=== PATIENT | male | born 1945 | race Caucasian/White ===

== ENCOUNTER → 2016-09-30 | Outpatient (REF) | payer OTHER ==
[2016-09-30 13:03] LABS: RETIC HEMOGLOBIN CONTENT CHr 32.1 PG (24-36); RETICULOCYTE ABSOLUTE ADVIA212 87 x10(9)/L (17-77)
[2016-09-30 13:08] LABS: REASON FOR REVIEW COMPREHENSIVE REVIEW
[2016-09-30 13:15] LABS: BILIRUBIN,DIRECT 0.4 MG/DL (0.0-0.2); PERCENT SATURATION 16.6 % (19.7-37.4)
== END ==
LOC: M LAB REF 12:16
PROVIDERS: ATTEND Internal Medicine Medical Oncology
DX: D59.9 Acquired hemolytic anemia, unspecified (principal)

== ENCOUNTER → 2016-10-10 | Outpatient (REF) | payer OTHER | LOC: M LAB REF 12:20 | PROVIDERS: ATTEND Physician Assistant | DX: Z79.01 Long term (current) use of anticoagulants (principal) ==

== ENCOUNTER → 2016-10-23 | Outpatient (REF) | payer OTHER ==
[2016-10-23 14:00] LABS: RETIC HEMOGLOBIN CONTENT CHr 29.4 PG (24-36); RETICULOCYTE % ADVIA2120 1.4 % (0.5-1.5)
[2016-10-23 14:27] LABS: BILIRUBIN,DIRECT 0.2 MG/DL (0.0-0.2); TOTAL PROTEIN 7.5 GM/DL (6.4-8.2)
[2016-10-24 11:21] LABS: ALBUMIN 4.01 GM/DL (3.29-5.55)
[2016-10-24 11:22] LABS: ALBUMIN % 53.5 % (55.8-66.1); GAMMA GLOBULIN % 18.3 % (11.1-18.8)
[2016-10-25 00:06] LABS: FREE KAPPA LIGHT CHAINS SERUM 68.77 mg/L (3.30-19.40); FREE LAMBDA LIGHT CHAINS SERUM 41.69 mg/L (5.71-26.30); KAPPA/LAMBDA RATIO SERUM 1.65 (0.26-1.65)
== END ==
LOC: M LAB REF 13:05
PROVIDERS: ATTEND Internal Medicine Medical Oncology
DX: D64.9 Anemia, unspecified (principal)

== ENCOUNTER → 2016-11-06 | Outpatient (REF) | payer OTHER ==
[2016-11-06 14:33] LABS: INR 3.69
== END ==
LOC: M LAB REF 13:31
PROVIDERS: ATTEND Physician Assistant
DX: Z79.01 Long term (current) use of anticoagulants (principal)

== ENCOUNTER 2017-01-22 15:51 | Inpatient (IN) | payer OTHER, MEDICARE ==
[~2017-01-22] VITALS: Ht 165.1 cm; Wt 93.0 kg
[2017-01-22] MEDS ORDERED: ALLO100T PO (16:32)
[2017-01-22] MEDS ORDERED: AMLO10TA2 PO (16:32)
[2017-01-22] MEDS ORDERED: FURO8SOL PO (16:32)
[2017-01-22] MEDS ORDERED: ASCO25TA PO (16:32)
[2017-01-22] MEDS ORDERED: PANT40TA2 PO (16:32)
[2017-01-22] MEDS ORDERED: CARV12.5 PO (16:32)
[2017-01-22] MEDS ORDERED: TERA2CAP3 PO (16:32)
[2017-01-22] MEDS ORDERED: IPRASOL4 INH (16:32)
[2017-01-22] MEDS ORDERED: FLOM5CAP PO (16:32)
[2017-01-22] MEDS ORDERED: POTA20TA PO (16:32)
[2017-01-22] MEDS ORDERED: ADV250INH INH (16:32)
[2017-01-22] MEDS ORDERED: PROVENTIL INH (16:32)
[2017-01-22] MEDS ORDERED: SIMV20TA2 PO (16:32)
[2017-01-22 17:16] LABS: BASO % 0.2 % (0.0-1.0); EOS # 0.5 K/mm3 (0.0-0.50); EOS % 13.3 % (0.0-3.0); LARGE UNSTAINED CELL # 0.2 K/mm3 (0.0-0.4); LARGE UNSTAINED CELL % 6.3 % (0.0-4.0); LYMPH # 0.4 K/mm3 (1.5-4.5); LYMPH % 11.5 % (24.0-44.0); MEAN CORPUSCULAR HEMOGLOBIN 31.1 pg (27.0-33.0); MEAN CORPUSCULAR HGB CONC 33.5 g/dl (32.0-36.5); MEAN CORPUSCULAR VOLUME 92.8 fl (80.0-96.0); MONO # 0.3 K/mm3 (0.0-0.8); MONO % 7.5 % (0.0-5.0); NEUTROPHILS # 2.2 K/mm3 (1.8-7.7); NEUTROPHILS % 61.2 % (36.0-66.0); RED CELL DISTRIBUTION WIDTH 16.2 % (11.5-14.5); WHITE BLOOD COUNT 3.5 K/mm3 (4.0-10.0)
[2017-01-22 17:23] LABS: INR 1.11
[2017-01-22 17:28] LABS: PLATELET COUNT, AUTOMATED 73 k/mm3 (150-450)
[2017-01-22 17:46] LABS: ALBUMIN 3.8 GM/DL (3.2-5.2); ALT/SGPT 19 U/L (12-78); ANION GAP 12 MEQ/L (8-16); AST/SGOT 13 U/L (15-37); BILIRUBIN,DIRECT 0.2 MG/DL (0.0-0.2); BLOOD UREA NITROGEN 146 MG/DL (7-18); CALCIUM LEVEL 8.3 MG/DL (8.8-10.2); CARBON DIOXIDE LEVEL 16 MEQ/L (21-32); CHLORIDE LEVEL 110 MEQ/L (98-107); CREATININE FOR GFR 7.87 MG/DL (0.70-1.30); GLOMERULAR FILTRATION RATE 7.2 (>42); GLUCOSE, FASTING 94 MG/DL (83-110); MAGNESIUM LEVEL 1.4 MG/DL (1.8-2.4); PHOSPHORUS LEVEL 6.7 MG/DL (2.5-4.9); SODIUM LEVEL 138 MEQ/L (136-145)
[2017-01-22 17:52] LABS: ALBUMIN/GLOBULIN RATIO 1.19 (1.00-1.93); ALKALINE PHOSPHATASE 91 U/L (45-117); BILIRUBIN,TOTAL 0.8 MG/DL (0.2-1.0); FREE T4 1.04 NG/DL (0.76-1.46)
[2017-01-22] MEDS ORDERED: SOD POLYSTYRENE SULFONATE SUSP 15 GM/60 ML UD PO ONE (18:00)
[2017-01-22 18:19] LABS: CHOLESTEROL LEVEL 87 MG/DL (<200); FERRITIN 265 NG/ML (26-388); TOTAL IRON BINDING CAPACITY 248 UG/DL (250-450); TRIGLYCERIDES LEVEL 101 MG/DL (<150)
[2017-01-22] MEDS ORDERED: BICITRA 30ML SOLN UDC PO ONE ×2 (18:30→23:45)
[2017-01-22] MEDS: NS 1,000 ML IV SCH (18:36)
--- NOTE | 2017-01-22 18:41 | HPEPDOC ---
General Date of Admission 01-22-17 Chief Complaint The patient is a 71-year-old male admitted with a reason for visit of Abnormal Lab Results. Source: Patient, Family Exam Limitations: No limitations Severity: Moderate History of Present Illness Pt. is a 71 y/o male with past medical history of CKD, chronic anemia, a. fib, hyperlipidemia, asthma, HTN, Gout, BPH, CAD s/p triple bypass sx. and aortic valve pig replacement 7 years ago, who presents today to the ED after he was seen at his Nephrologists office today, Dr. Rebolledo for increasing fatigue, SOB and decreased appetite and found to have worsening renal failure. The pt states that for the past 3 weeks he has been getting progressively tired, has been more SOB especially on ambulation and has seemed to lost his appetite. He states he has been anemic since about Jul 2016 and has been seeing his kidney doctor since that time, he states the cause of his anemia is his poor kidney function, since Jul 2016 he has been transfused blood over 20x. HE was last seen at [facility] in November 2016 for a similar presentation and Hg of 4, and received transfusions there as well. The pt states he is not on any blood thinners for his a. fib since this admission, prior to that he was on Eliquis and switched to Coumidin in the hospital, when his anemia kept worsening, he was taken off all blood thinning agents. The pt denies fever, chills or muscle aches, abdominal pain, blood in urine or stool (although since being on Iron, he states his stool looks darker but his PCP apparently has tested for blood in the stool and has always been negative), he denies bleeding gums/nose but states he did sustain many bloody noses prior to cauterization a few months back , admits hes been "cold" lately. No recent changes to his medications. Home Medications Scheduled Allopurinol (Zyloprim) 300 Mg Tab, 300 MG PO DAILY, (Reported) Amlodipine Besylate (Amlodipine Besylate) 10 Mg Tab, 10 MG PO DAILY, (Reported) Ascorbic Acid (Vitamin C) 250 Mg Tab, 500 MG PO DAILY, (Reported) Carvedilol (Carvedilol) 12.5 Mg Tab, 12.5 MG PO BID, (Reported) Pantoprazole Sodium (Pantoprazole Sodium) 40 Mg Tab, 40 MG PO DAILY, (Reported) Potassium Chloride (Klor-Con M20) 20 Meq Tabcr, 20 MEQ PO DAILY, (Reported) Salmeterol/Fluticasone (Advair Diskus 250-50 Mcg/Dose) 14 Puff/Inhaler Aerp, 1 PUFF INH BID, (Reported) Simvastatin (Simvastatin) 20 Mg Tab, 20 MG PO QHS, (Reported) Tamsulosin Hydrochloride (Flomax) 0.4 Mg Cap, 0.4 MG PO QHS, (Reported) Terazosin HCl (Terazosin HCl) 2 Mg Cap, 2 MG PO QHS, (Reported) Torsemide (Demadex) 20 Mg Tab, 40 MG PO DAILY Scheduled PRN Albuterol Sulfate (Proventil Hfa) 167 Puff/6.7 Gm Aers, 2 PUFFS INH Q6H PRN for SHORTNESS OF BREATH, (Reported) Albuterol/Ipratropium (Ipratropium [place]/Albut 0.5-2.5 (3) mg/3Ml) 1 Humaira Humaira, 1 HUMAIRA INH QID PRN for SHORTNESS OF BREATH, (Reported) Allergies Coded Allergies: Shrimp (Unverified Allergy, Unknown, 02/13/16) Past Medical History Medical History a. fib NOT anticoagulated due to anemia chronic kidney disease DLP HTN Gout BPH chronic anemia Family History Significant Family History: No pertinent family hx Social History * Smoker: Denies Alcohol: Denies Drugs: denies Review of Symptoms Constitutional: Reports: Malaise, Weakness, Fatigue, Lethargy, Denies: Chills, Fever, Night Sweats, Weight Loss Eyes: Denies: Vision change, Conjunctivae inflammation ENT: Denies: Head Aches Skin: Denies: Rash, Lesions Pulmonary: Reports: Dyspnea, Denies: Pleuritic Chest Pain Cardiovascular: Reports: Edema (pt states he has swelling in his legs that look much better today-is on Lasix), Denies: Chest Pain, Palpitations, Orthopnea, Paroxysmal Noc. Dyspnea Gastrointestinal: Denies: Nausea, Vomiting, Abdominal Pain, Diarrhea, Constipation Genitourinary: Denies: Dysuria Hematologic: Denies: Bruising, Bleeding Excessively, Petecchia, Purpura Musculoskeletal: Denies: Neck Pain Neurological: Reports: Weakness, Denies: Numbness, Incoordination Psych: Reports: Mood Normal Physical Examination General Exam: Positive: Alert, Cooperative, No Acute Distress Eye Exam: Positive: PERRLA, Conjunctiva & lids normal, EOMI, Negative: Sclera icteric ENT Exam: Positive: Atraumatic, Mucous membr. moist/pink, Pharynx Normal, Tongue Midline Neck Exam: Positive: Supple, Negative: JVD, thyromegaly Chest Exam: Positive: Clear to auscultation, Negative: Rales, Rhonchi, Wheezing, Diminished Heart Exam: Positive: Rate Normal, Regular Rhythm, Normal S2, Murmurs (aortic pig valve aortic murmur appreciated), Negative: Normal S1, Rubs, Other Telemetry: Positive: No significant arrhythmia, Negative: Tachycardia, Bradycardia Abdomen Exam: Positive: Normal bowel sounds, Soft, Negative: Tenderness, Hepatospenomegaly Extremity Exam: Positive: Edema (trace b/l LE), Negative: Clubbing, Cyanosis Psych Exam: Positive: Mental status NL Vital Signs Vital Signs Date Time Temp Pulse Resp B/P (MAP) Pulse Ox O2 Delivery O2 Flow Rate FiO2 01/22/17 16:45 01/22/17 15:54 98.8 65 18 98 Room Air Laboratory Data Labs 24H Laboratory Tests 2 01/22/17 17:05: White Blood Count 3.5L, Red Blood Count 2.57L, Hemoglobin 8.0L, Hematocrit 23.9L , Mean Corpuscular Volume 92.8, Mean Corpuscular Hemoglobin 31.1, Mean Corpuscular Hemoglobin Concent 33.5, Red Cell Distribution Width 16.2H, Platelet Count 73L, Neutrophils (%) (Auto) 61.2, Lymphocytes (%) (Auto) 11.5L, Monocytes (%) (Auto) 7.5H, Eosinophils (%) (Auto) 13.3H, Basophils (%) (Auto) 0.2, Neutrophils # (Auto) 2.2, Lymphocytes # (Auto) 0.4L, Monocytes # (Auto) 0.3 , Eosinophils # (Auto) 0.5, Basophils # (Auto) 0.0, Large Unclassified Cells % 6.3H, Large Unclassified Cells # 0.2, Prothrombin Time 14.5, Prothromb Time International Ratio 1.11, Activated Partial Thromboplast Time 30.5, Anion Gap 12 , Glomerular Filtration Rate 7.2L, Calcium Level 8.3L, Phosphorus Level 6.7H, Magnesium Level 1.4L, Iron Level 139, Total Iron Binding Capacity 248L, Transferrin % Saturation 56.0H, Ferritin 265, Aspartate Amino Transf (AST/SGOT) 13L, Alanine Aminotransferase (ALT/SGPT) 19, Alkaline Phosphatase 91, Total Bilirubin 0.8, Direct Bilirubin 0.2, Total Creatine Kinase 108, Creatine Kinase MB 1.3, Creatine Kinase MB Relative Index 1.20, Troponin I < 0.02, Total Protein 7.0, Albumin 3.8, Albumin/Globulin Ratio 1.19, Triglycerides Level 101, Total Cholesterol 87, LDL Cholesterol 41.8, Non-HDL Cholesterol (LDL + VLDL) 62 , Total HDL Cholesterol 25L, Cholesterol/HDL Ratio 3.480, Thyroid Stimulating Hormone (TSH) 2.050, Free Thyroxine 1.04 CBC/BMP Laboratory Tests 01/22/17 17:05 Red Blood Count 2.57 L, Mean Corpuscular Volume 92.8, Mean Corpuscular Hemoglobin 31.1, Mean Corpuscular Hemoglobin Concent 33.5, Red Cell Distribution Width 16.2 H, Neutrophils (%) (Auto) 61.2, Lymphocytes (%) (Auto) 11.5 L, Monocytes (%) (Auto) 7.5 H, Eosinophils (%) (Auto) 13.3 H, Basophils (% ) (Auto) 0.2, Neutrophils # (Auto) 2.2, Lymphocytes # (Auto) 0.4 L, Monocytes # (Auto) 0.3, Eosinophils # (Auto) 0.5, Basophils # (Auto) 0.0 Problems (1) Acute renal failure Status: Acute Response to Treatment: Stable Problem Text: Acute on chronic renal failure Pt AAOx3, BUN/ CR 146/7.8 will request records from nephrology office for pt baseline labs nephrology on consult-greatly appreciate their recommendation- Pt will receive dialysis tomorrow, and catheter dialysis placement in the morning by Dr. Caldwell of vascular surgery Per nephrology recommendation- do not transfuse, H/H 8 and 23.9, pt has been type and crossed to receive transfusion tomorrow during dialysis Renal diet, then NPO after midnight Hold lasix, allopurinol and vitamin C (2) Hyperkalemia Status: Acute Response to Treatment: Stable Problem Text: Pt received 30 of Kayexelate in ED K currently 6, no EKG changes concerning for hyperkalemia, NSR in ED, will repeat EKG in AM Pt being admitted to PCU cardiac unit for 24 hour monitoring Will check Mag level Repeat CMP for 6 hours (3) Anemia Status: Chronic Response to Treatment: Stable Problem Text: H/H stable, platelets 71 no active source of bleeding suspected pt is stable have type and crossed for transfusion tomorrow during dialysis (4) Atrial fibrillation Status: Chronic Response to Treatment: Stable Problem Text: Stable Will hold anticoagulation in light of current anemia Pt is not normally anticoagulated due to chronic anemia pulse in 60's NSR on EKG in ED will repeat EKG in AM Pt being admitted to PCU cardiac unit for 24 hour monitoring (5) HTN (hypertension) Status: Chronic Response to Treatment: Stable Problem Text: will continue home medications with hold parameters (6) Metabolic acidemia Status: Acute Response to Treatment: Stable Problem Text: pt receive sodium citrate from nephrology in ED will be dialyzed tomorrow continue to monitor (7) Hyperlipidemia Status: Chronic Response to Treatment: Stable Problem Text: c/w home medications (8) BPH (benign prostatic hyperplasia) Status: Chronic (9) Asthma Status: Chronic Response to Treatment: Stable Problem Text: duonebs (10) DVT prophylaxis Status: Acute Response to Treatment: Stable Problem Text: scd teds Plan / VTE VTE Prophylaxis Ordered?: Yes Plan / Urinary Catheter Reason for insertion/continuin: Critical Pt monitoring GME ATTESTATION GME ATTESTATION My preceptor for this patient encounter was physically present in the building during the encounter and was fully available. As needed, all aspects of the patient interview, examination, medical decision making process, and medical care plan development were reviewed and approved by the preceptor. Preceptor is aware and concurs with the plan as stated in the body of this note and will attest to such by his/her cosignature. ATTENDING NOTE I, Ceci Moore, have both independently examined this patient as well as reviewed the documentation. I have discussed in detail with the resident the findings and plan of treatment as documented in the residents documentation. I will continue to follow the patient and offer further guidance to the patients care as necessary during this hospital stay. KASSIE ALFONSO DO Jan 22, 2017 18:41 CECI MOORE MD Feb 08, 2017 17:14
[2017-01-22] MEDS ORDERED: IPRATROPIUM 0.5MG/ALBUTEROL 2.5MG INH SOL UD 3ML (DUONEB)(J7620) NEB PRN (18:45)
[2017-01-22] MEDS ORDERED: ZYLO300T4 PO (18:50)
[2017-01-22] MEDS ORDERED: ALBU17IN2 INH (18:50)
[2017-01-22] MEDS ORDERED: FURO40TA2 PO (18:50)
[2017-01-22] MEDS ORDERED: SODI650T PO (18:50)
--- NOTE | 2017-01-22 19:03 | REP ---
CHEST PA AND LATERAL: 01/22/2017: Clinical history: Weakness. Evaluate for pneumonia. Findings: There were no prior studies. A dual lead pacer overlying the upper chest with leads terminating in the right atrium and right ventricle noted. Sternotomy wires and aortic valve replacement with mediastinal clips are also noted. Heart is not enlarged. The left atrium is mildly prominent. No gross cardiomegaly. There is some venous hypertension without pulmonary edema, acute infiltrate or parenchymal mass. Some minor fibrotic changes are noted. No dense consolidation with air bronchograms. The lateral view shows some fibrotic or atelectatic changes posteriorly in the lower lung zone. Blunting of posterior CP angles may be scar or small effusion. Bony thorax shows no compression deformity. There are axillary surgical clips on the right and right neck clips as well. Impression:1. Multi lead pacer sternotomy and aortic valve replacement noted. 2. Some mild left atrial margin but no cardiomegaly. There is vascular redistribution with pulmonary venous hypertension but no citlaly edema. Question scar versus small effusions posteriorly on the lateral view. 3. Some underlying minor fibrotic changes. The aorta is calcified tortuous but without aneurysm. Airway intact. No definite infiltrate. 4. Axillary surgical clips on the right along with right neck surgical clips. Signed by Mj Hudson MD 01/23/2017 10:48 A
--- NOTE | 2017-01-22 19:20 | REPUSA ---
CLINICAL HISTORY: Renal failure. TECHNIQUE: Realtime sonographic images were obtained in multiple projections. COMMENTS: Diffusely increased bilateral renal echogenicity is noted compatible with medical renal disease. The right kidney measures 11 cm and the left kidney measures 11.2 cm. Both kidneys are free of hydrone phrosis. There is no evidence of solid mass. 1.9 cm left renal cyst is seen. Duplex left renal colle cting system is noted. There is no perinephric fluid. There is no renal calculus. Nieto catheter is in place. IMPRESSION: Diffusely increased bilateral renal echogenicity is noted compatible with medical renal disease. 1.9 cm left renal cyst is seen. Duplex left renal collecting system is noted. Thank you for your kind referral of this patient.
--- NOTE | 2017-01-22 19:52 | ECGEPIP ---
Stationary ECG Study [facility] - ED Test Date: 2017-01-22 Pat Name: LAITH ZEPEDA Department: Room: - Gender: M Pad Hand: STACI : 1945 Requested By: ZEE Carias Order Number: [id number] Reading MD: Miah Delgdaillo Measurements Intervals [place] Rate: 93 P: 6 RI: 156 QRS: 63 QRSD: 149 T: 20 QT: 413 QTc: 515 Interpretive Statements SINUS RHYTHM WITH MARKED SINUS ARRHYTHMIA RIGHT BUNDLE BRANCH BLOCK NO PRIORS Electronically Signed On 01-22-2017 19:52:18 EDT by Miah Delgadillo
[2017-01-22 20:41] VITALS: BP 144/68
[2017-01-22] MEDS ORDERED: SLF 3 ML SYR IV PRN (21:45)
[2017-01-22] MEDS: TAMSULOSIN 0.4 MG CAP PO SCH (21:52)
[2017-01-22] MEDS: CARVedilol 12.5 MG TAB PO SCH (21:52)
[2017-01-22] MEDS: SIMVASTATIN 20 MG TAB PO SCH (21:52)
[2017-01-22] MEDS: BICITRA 30ML SOLN UDC PO SCH (21:53)
[2017-01-22] MEDS: SODIUM BICARBONATE 325 MG TAB PO SCH (21:53)
[2017-01-22] MEDS: TERAZOSIN 1 MG CAP PO SCH (21:53)
[2017-01-22] MEDS: SLF 3 ML SYR IV SCH (21:55)
[2017-01-22] MEDS: ADVAIR HFA 115/21MCG INHALER INH SCH (22:37)
[2017-01-22 23:31] VITALS: BP 112/57
[2017-01-23 00:53] LABS: ALBUMIN 3.7 GM/DL (3.2-5.2); ALBUMIN/GLOBULIN RATIO 0.97 (1.00-1.93); BILIRUBIN,TOTAL 0.8 MG/DL (0.2-1.0); CALCIUM LEVEL 8.2 MG/DL (8.8-10.2); CREATININE FOR GFR 8.21 MG/DL (0.70-1.30); GLOMERULAR FILTRATION RATE 6.9 (>42); MAGNESIUM LEVEL 1.1 MG/DL (1.8-2.4); TOTAL PROTEIN 7.5 GM/DL (6.4-8.2)
[2017-01-23 00:59] LABS: POTASSIUM SERUM 5.5 MEQ/L (3.5-5.1)
[2017-01-23] MEDS: NS 1,000 ML IV SCH ×2 (01:04→09:35)
[2017-01-23] MEDS ORDERED: MAG SULF 1GM/100ML (MAG RUN) 1 GM in APPROPRIATE DILUENT 1 EA IV ONE ×3 (02:00→15:00)
[2017-01-23 04:00] VITALS: BP 91/47
[2017-01-23] MEDS: SLF 3 ML SYR IV SCH ×3 (05:27→20:37)
[2017-01-23 05:57] LABS: BASO % 0.6 % (0.0-1.0); CALCIUM LEVEL 7.6 MG/DL (8.8-10.2); CREATININE FOR GFR 7.94 MG/DL (0.70-1.30); EOS # 0.4 K/mm3 (0.0-0.50); EOS % 13.6 % (0.0-3.0); GLOMERULAR FILTRATION RATE 7.2 (>42); LARGE UNSTAINED CELL # 0.2 K/mm3 (0.0-0.4); LARGE UNSTAINED CELL % 7.3 % (0.0-4.0); LYMPH # 0.4 K/mm3 (1.5-4.5); LYMPH % 12.9 % (24.0-44.0); MAGNESIUM LEVEL 1.5 MG/DL (1.8-2.4); MEAN CORPUSCULAR HEMOGLOBIN 31.1 pg (27.0-33.0); MEAN CORPUSCULAR HGB CONC 33.4 g/dl (32.0-36.5); MEAN CORPUSCULAR VOLUME 93.3 fl (80.0-96.0); MONO # 0.4 K/mm3 (0.0-0.8); MONO % 10.9 % (0.0-5.0); NEUTROPHILS # 1.8 K/mm3 (1.8-7.7); NEUTROPHILS % 54.7 % (36.0-66.0); POTASSIUM SERUM 4.9 MEQ/L (3.5-5.1); RED CELL DISTRIBUTION WIDTH 16.1 % (11.5-14.5); WHITE BLOOD COUNT 3.3 K/mm3 (4.0-10.0)
[2017-01-23 05:59] LABS: PLATELET COUNT, AUTOMATED 67 k/mm3 (150-450)
[2017-01-23] MEDS ORDERED: MIDAZOLAM INJ 2 MG/2 ML VIAL (J2250) As Ordered ONE (07:11)
[2017-01-23] MEDS ORDERED: fentaNYL 100 MCG/2 ML INJECTION (J3010) As Ordered ONE (07:11)
[2017-01-23] MEDS ORDERED: HEPARIN 1,000 UNITS/ML 10ML VIAL (FOR RADIOLOGY& DIALYSIS ONLY) As Ordered ONE (07:11)
[2017-01-23] MEDS: ADVAIR HFA 115/21MCG INHALER INH SCH ×2 (07:36→20:30)
[2017-01-23 08:00] VITALS: BP 168/72
[2017-01-23] MEDS: BICITRA 30ML SOLN UDC PO SCH ×3 (08:22→20:37)
[2017-01-23] MEDS: SODIUM BICARBONATE 325 MG TAB PO SCH ×2 (08:22→20:36)
[2017-01-23] MEDS: PANTOPRAZOLE 40MG TAB (PROTONIX) PO SCH (08:22)
[2017-01-23] MEDS: CARVedilol 12.5 MG TAB PO SCH ×2 (08:24→20:37)
[2017-01-23] MEDS: amLODIPine 10 MG TAB PO SCH (08:24)
--- NOTE | 2017-01-23 11:58 | CR.PDOC ---
[facility] Consultation Consultation DATE OF CONSULTATION: Jan 22, 2017 at 15:51 Referring provider: Dr. Ericka Brown Reason for consultation: Hyperkalemia, progression to end-stage renal disease, initiation of hemodialysis Chief complaint: Abnormal lab results History of present illness: Patient is a 71-year-old male with past medical history of CKD stage V, chronic normocytic anemia / thrombocytopenia, status post multiple blood transfusions (>20) in the recent past, atrial fibrillation not on anticoagulation at the present time due to chronic anemia, hyperlipidemia on statin, asthma, hypertension, gout, BPH, coronary artery disease status post triple bypass surgery and pacemaker, aortic valve replacement with porcine valve 7 years ago. For his anemia patient follows with Dr. Hancock. He states workup thus far has been negative including stool occult. For his renal care, he follows with Dr. Herman Rebolledo since early 2016. He was seen in the office yesterday. Labs were reviewed and showed progression of renal failure with hyperkalemia. Patient was instructed to come to [facility] for catheter placement and initiation of hemodialysis on this visit. Patient complains of shortness of breath worsened with exertion, lower extremity edema, nausea with poor PO appetite, decreased urine output, and increased forgetfulness and fatigue. Dialysis initiation is discussed at the bedside with the patient and his , patient consents for dialysis. He will receive a blood transfusion with his first dialysis treatment today. Past medical history: As stated above Past surgical history: Appendectomy in childhood, triple bypass surgery, aortic valve replacement with porcine valve 2, knee surgery. Family history: Father due to heart disease. Denies history of kidney disease. Social history: Denies smoking, denies recreational drug use, occasional alcohol. Allergies: Shrimp Review of systems: Constitutional:, Weakness, fatigue. Denies fevers, chills Eyes:. Denies vision change, no blurry vision ENT: No sore throat, no rhinorrhea Skin: No rashes, no lesions Pulmonary: Shortness of breath with exertion, no cough / no sputum. Cardiovascular: No chest pain, no palpitations, status post pacemaker Gastrointestinal: Nausea, poor appetite. No diarrhea, no BRBPR, no melena. Genitourinary: Traumatic Tan insertion, no dysuria Hematologic: Chronic anemia, thrombocytopenia. no easy bruising Musculoskeletal: No back pain. No neck pain Neurological: Forgetfulness. No headache Psych: Appropriate mood and behavior Physical exam: General Exam: awake alert and comfortable in bed, at bedside Eye Exam: PERRLA, Conjunctiva & lids normal, EOMI ENT Exam: MMM, nares patent Neck Exam: supple, no thyromegaly Chest Exam: clear bilateral air entry, comfortable on room air Heart Exam: regular rate and rhythm, pacemaker present L chest wall, no friction rub appreciated Abdomen Exam: Positive: Normal bowel sounds, Soft, nontender Extremity Exam: Positive: Edema 1+ pitting lower ext, peripheral pulse palpable Genitourinary: tan catheter Psych Exam: calm, appropriate mood and affect Vital Signs Label Value Date Time Patient Temperature 98.3 degrees F 01/23/17799 Temperature Source Temporal 01/23/17799 Pulse 77 01/23/17799 Respiratory Rate 18 bpm 01/23/17799 Blood Pressure Assessment 168/72 (104) 01/23/17799 Bedside Pulse Oximetry 97 % 01/23/17799 Item Value Date Time Oxygen Delivery Method Room Air 01/23/17799 Assessment and plan: #1. ESRD for initiation of HD. Dialysis catheter placement today. First dialysis treatment this afternoon. BUN is in 140s. Will take full precautions for prevention of dialysis disequilibrium syndrome. 2K potassium bath. No heparin with dialysis - platelets are in 60s. Will transfuse 1 unit packed red blood cells with dialysis today. Arrange for outpatient hemodialysis, check hepatitis panel. Chest x-ray. Social work consult. Patient prefers Friday, Friday, Friday schedule. #2. Chronic anemia, thrombocytopenia. Peripheral blood smear reviewed from September 2016, normocytic anemia with elevated reticulocyte suggestive of peripheral blood loss. Follows up outpatient with Dr. Hancock. We will start LATONYA therapy with hemodialysis. Iron panel reviewed. Iron stores are adequate. #3. Longstanding HTN, Atrial fibrillation not on anticoagulation, heart rate is controlled. On telemetry. On amlodipine and Coreg. Blood pressure is acceptable. #4. Metabolic acidosis secondary to end-stage renal disease; will improve with hemodialysis. Continue with Bicitra and sodium bicarbonate #5. Hyperkalemia and electrolyte abnormality, status post Kayexalate and alkalinizing agents will improve with hemodialysis initiation. #6. Volume status. Patient is comfortable on room air. Chest x-ray is reviewed. On exam, he is clinically volume overloaded with lower extremity edema. Will do gentle ultrafiltration with his first dialysis session today. Discontinue IV fluid. #6. BPH on terazosin and tamsulosin. Status post traumatic Tan insertion. We will discontinue Tan catheter. 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 Laboratory Data Labs 24H Laboratory Tests 2 01/22/17 17:05: White Blood Count 3.5L, Red Blood Count 2.57L, Hemoglobin 8.0L, Hematocrit 23.9L , Mean Corpuscular Volume 92.8, Mean Corpuscular Hemoglobin 31.1, Mean Corpuscular Hemoglobin Concent 33.5, Red Cell Distribution Width 16.2H, Platelet Count 73L, Neutrophils (%) (Auto) 61.2, Lymphocytes (%) (Auto) 11.5L, Monocytes (%) (Auto) 7.5H, Eosinophils (%) (Auto) 13.3H, Basophils (%) (Auto) 0.2, Neutrophils # (Auto) 2.2, Lymphocytes # (Auto) 0.4L, Monocytes # (Auto) 0.3 , Eosinophils # (Auto) 0.5, Basophils # (Auto) 0.0, Large Unclassified Cells % 6.3H, Large Unclassified Cells # 0.2, Prothrombin Time 14.5, Prothromb Time International Ratio 1.11, Activated Partial Thromboplast Time 30.5, Anion Gap 12 , Glomerular Filtration Rate 7.2L, Estimated Mean Plasma Glucose 126H, Hemoglobin A1c 6.0, Calcium Level 8.3L, Phosphorus Level 6.7H, Magnesium Level 1.4L, Iron Level 139, Total Iron Binding Capacity 248L, Transferrin % Saturation 56.0H, Ferritin 265, Aspartate Amino Transf (AST/SGOT) 13L, Alanine Aminotransferase (ALT/SGPT) 19, Alkaline Phosphatase 91, Total Bilirubin 0.8, Direct Bilirubin 0.2, Total Creatine Kinase 108, Creatine Kinase MB 1.3, Creatine Kinase MB Relative Index 1.20, Troponin I < 0.02, Total Protein 7.0, Albumin 3.8, Albumin/Globulin Ratio 1.19, Triglycerides Level 101, Total Cholesterol 87, LDL Cholesterol 41.8, Non-HDL Cholesterol (LDL + VLDL) 62, Total HDL Cholesterol 25L, Cholesterol/HDL Ratio 3.480, Thyroid Stimulating Hormone (TSH) 2.050, Free Thyroxine 1.04, Parathyroid Hormone (Intact) 125.8H 01/23/17 00:05: Anion Gap 12, Glomerular Filtration Rate 6.9L, Calcium Level 8.2L, Magnesium Level 1.1L, Aspartate Amino Transf (AST/SGOT) 11L, Alanine Aminotransferase (ALT /SGPT) 19, Alkaline Phosphatase 88, Total Bilirubin 0.8, Total Protein 7.5, Albumin 3.7, Albumin/Globulin Ratio 0.97L, Blood Urea Nitrogen 139H, Creatinine 8.21H, Sodium Level 141, Potassium Level 5.5H, Chloride Level 112H, Carbon Dioxide Level 17L 01/23/17 05:00: White Blood Count 3.3L, Red Blood Count 2.57L, Hemoglobin 8.0L, Hematocrit 23.9L , Mean Corpuscular Volume 93.3, Mean Corpuscular Hemoglobin 31.1, Mean Corpuscular Hemoglobin Concent 33.4, Red Cell Distribution Width 16.1H, Platelet Count 67L, Neutrophils (%) (Auto) 54.7, Lymphocytes (%) (Auto) 12.9L, Monocytes (%) (Auto) 10.9H, Eosinophils (%) (Auto) 13.6H, Basophils (%) (Auto) 0.6, Neutrophils # (Auto) 1.8, Lymphocytes # (Auto) 0.4L, Monocytes # (Auto) 0.4 , Eosinophils # (Auto) 0.4, Basophils # (Auto) 0.0, Large Unclassified Cells % 7.3H, Large Unclassified Cells # 0.2, Anion Gap 13, Glomerular Filtration Rate 7.2L, Calcium Level 7.6L, Magnesium Level 1.5L, Blood Urea Nitrogen 140H, Creatinine 7.94H, Sodium Level 143, Potassium Level 4.9, Chloride Level 113H, Carbon Dioxide Level 17L CBC/BMP Laboratory Tests 01/22/17 17:05 Red Blood Count 2.57 L, Mean Corpuscular Volume 92.8, Mean Corpuscular Hemoglobin 31.1, Mean Corpuscular Hemoglobin Concent 33.5, Red Cell Distribution Width 16.2 H, Neutrophils (%) (Auto) 61.2, Lymphocytes (%) (Auto) 11.5 L, Monocytes (%) (Auto) 7.5 H, Eosinophils (%) (Auto) 13.3 H, Basophils (% ) (Auto) 0.2, Neutrophils # (Auto) 2.2, Lymphocytes # (Auto) 0.4 L, Monocytes # (Auto) 0.3, Eosinophils # (Auto) 0.5, Basophils # (Auto) 0.0 01/23/17 00:05 Calcium Level 8.2 L, Aspartate Amino Transf (AST/SGOT) 11 L, Alanine Aminotransferase (ALT/SGPT) 19, Alkaline Phosphatase 88, Total Bilirubin 0.8, Total Protein 7.5, Albumin 3.7 01/23/17 05:00 Red Blood Count 2.57 L, Mean Corpuscular Volume 93.3, Mean Corpuscular Hemoglobin 31.1, Mean Corpuscular Hemoglobin Concent 33.4, Red Cell Distribution Width 16.1 H, Neutrophils (%) (Auto) 54.7, Lymphocytes (%) (Auto) 12.9 L, Monocytes (%) (Auto) 10.9 H, Eosinophils (%) (Auto) 13.6 H, Basophils (% ) (Auto) 0.6, Neutrophils # (Auto) 1.8, Lymphocytes # (Auto) 0.4 L, Monocytes # (Auto) 0.4, Eosinophils # (Auto) 0.4, Basophils # (Auto) 0.0, Calcium Level 7.6 L Microbiology Microbiology 01/22/17 Stool Occult Blood (TUCKER) - Final, Complete Allergies Coded Allergies: Shrimp (Unverified Allergy, Unknown, 02/13/16) Home Medications Scheduled Allopurinol (Zyloprim) 300 Mg Tab, 300 MG PO DAILY, (Reported) Amlodipine Besylate (Amlodipine Besylate) 10 Mg Tab, 10 MG PO DAILY, (Reported) Ascorbic Acid (Vitamin C) 250 Mg Tab, 500 MG PO DAILY, (Reported) Carvedilol (Carvedilol) 12.5 Mg Tab, 12.5 MG PO BID, (Reported) Furosemide (Furosemide) 40 Mg Tab, 40 MG PO BID, (Reported) Pantoprazole Sodium (Pantoprazole Sodium) 40 Mg Tab, 40 MG PO DAILY, (Reported) Potassium Chloride (Klor-Con M20) 20 Meq Tabcr, 20 MEQ PO DAILY, (Reported) Salmeterol/Fluticasone (Advair Diskus 250-50 Mcg/Dose) 14 Puff/Inhaler Aerp, 1 PUFF INH BID, (Reported) Simvastatin (Simvastatin) 20 Mg Tab, 20 MG PO QHS, (Reported) Sodium Bicarbonate (Sodium Bicarbonate) 650 Mg Tab, 650 MG PO BID, (Reported) Tamsulosin Hydrochloride (Flomax) 0.4 Mg Cap, 0.4 MG PO QHS, (Reported) Terazosin HCl (Terazosin HCl) 2 Mg Cap, 2 MG PO QHS, (Reported) Scheduled PRN Albuterol Sulfate (Proventil Hfa) 167 Puff/6.7 Gm Aers, 2 PUFFS INH Q6H PRN for SHORTNESS OF BREATH, (Reported) Albuterol/Ipratropium (Ipratropium [place]/Albut 0.5-2.5 (3) mg/3Ml) 1 Gemini Gemini, 1 GEMINI INH QID PRN for SHORTNESS OF BREATH, (Reported) AUSTIN REBOLLEDO DO Jan 23, 2017 11:58
[2017-01-23 12:00] VITALS: BP 100/55
[2017-01-23 12:41] LABS: REASON FOR REVIEW COMPREHENSIVE REVIEW
--- NOTE | 2017-01-23 13:02 | ROOPDOC ---
[facility] Report Of Operation Report of Operation DATE OF PROCEDURE: 01/23/17 PREPROCEDURE DIAGNOSES: End-stage renal disease, hyperkalemia and initiation of hemodialysis. POSTPROCEDURE DIAGNOSES: End-stage renal disease, hyperkalemia and initiation of hemodialysis. PROCEDURE: Ultrasound and fluoroscopic guided right internal jugular vein 19 cm tip to cuff tunneled central venous catheter placement. SURGEON: Dr. Jose Caldwell MD OUTSIDE SALES ACCOUNT EXECUTIVE: Christoph Santana INDICATION: Patient is a 71-year-old male with hyperkalemia, end-stage renal disease and requirement for hemodialysis. Patient was evaluated and felt to be a good candidate for a right internal jugular vein PermCath placement. Risks benefits and alternative treatment options were discussed with the patient. Alternative treatment options included but were not limited to no intervention. The risks included but were not limited to infection, bleeding, pneumothorax, hemothorax, possible need for open surgical intervention, cerebrovascular accident, myocardial infarction, pulmonary embolus, DVT, loss of limb, loss of life and her outcome. All the patient's questions were answered, the patient understands the risks benefits and alternative treatment options, patient agrees to proceed with a right internal jugular vein PermCath placement. ANESTHESIA: Local with sedation: 10 cc of 2% lidocaine. ESTIMATED BLOOD LOSS: Approximately minimal. IVF: 100 cc FLUOROSCOPIC TIME: 0.2 min. CONTRAST: None COMPLICATIONS: None. IMPLANTS: Right internal jugular vein 19 cm tip to cuff PermCath. PROCEDURE: Patient was taken to the angiography suite, placed supine on the angiography room table and after performing a time out confirming the correct patient and procedure, the patient was prepped and draped in a standard surgical fashion. Ultrasound was used to evaluate the right internal jugular vein, which was noted to be easily compressible free of thrombus and widely patent. Ultrasound was then used to guide cannulation of the right internal jugular vein with a micro-puncture needle after anesthetizing the overlying skin with 2% lidocaine, and a hard copy image was preserved. He micropuncture Y was then advanced to the micropuncture needle which was upsized to a micropuncture sheath. An Amplatz wire was then advanced to the micropuncture sheath under fluoroscopic guidance. The right internal jugular vein was then sequentially dilated under fluoroscopic guidance and an introducer sheath was positioned. A 19 cm tipped cuff catheter was then tunneled through a puncture wound in the right chest and brought out at the puncture wound at the right internal jugular vein entry site after anesthetizing the overlying skin with 2% lidocaine. The catheter was advanced through the introducer sheath and positioned with the tip in the superior vena cava right atrial junction under fluoroscopic guidance. Both ports of the catheter was then aspirated, noted to aspirate easily and then flushed with heparinized saline. The catheter was secured to the anterior chest wall using 2-0 Prolene suture after anesthetizing the overlying skin with 2% lidocaine. The puncture wound in the right neck was closed using a 4-0 Vicryl suture and inverted interrupted fashion. All instrument, sponge and needle counts were correct at the end of the case. There were no complications. Dr. Caldwell was present for and directed the entire case. The PermCath is stable for used for hemodialysis access. RADIOLOGIC SUPERVISION AND INTERPRETATION: The initial ultrasound of the right internal jugular vein showed the vein to be widely patent, easily compressible and free of thrombus. Ultrasound was used to guide cannulation of the right internal jugular vein with a hard copy image preserved. The right internal jugular vein was sequentially dilated under fluoroscopic guidance. The final fluoroscopic image showed the catheter to be in good position and good alignment with the tip in the superior vena cava right atrial junction, with no or hemothorax present. The catheter is stable for used for hemodialysis access. Royce Caldwell MD Jan 23, 2017 13:02
[2017-01-23] MEDS: ACETAMINOPHEN TAB 650MG DOSE (2X325MG) PO PRN (13:35)
--- NOTE | 2017-01-23 14:14 | IPNPDOC ---
Subjective Date Seen The patient was seen on 01/23/17. Subjective Chief Complaint/HPI The patient is a 71-year-old male admitted with a reason for visit of Acute Renal Failure,Anemia,Hyperkalemia. General: Denies: Chills, Night Sweats Constitutional: Denies: Chills, Fever, Malaise Eyes: Denies: Pain, Vision change ENT: Denies: Head Aches Skin: Denies: Rash, Lesions Pulmonary: Denies: Dyspnea, Cough Cardiovascular: Denies: Chest Pain, Palpitations Gastrointestinal: Denies: Nausea, Vomiting Genitourinary: Denies: Dysuria Neurological: Reports: Weakness Psych: Reports: Mood Normal Objective Physical Examination General Exam: Positive: Alert, Cooperative, No Acute Distress Eye Exam: Positive: PERRLA, Conjunctiva & lids normal, EOMI, Negative: Sclera icteric ENT Exam: Positive: Atraumatic, Mucous membr. moist/pink, Pharynx Normal, Tongue Midline Neck Exam: Positive: Supple, Negative: JVD, thyromegaly Chest Exam: Positive: Clear to auscultation, Negative: Rales, Rhonchi, Wheezing, Diminished Heart Exam: Positive: Rate Normal, Regular Rhythm, Normal S2, Murmurs (aortic pig valve aortic murmur-uncahnged from admission), Negative: Normal S1, Rubs, Other Telemetry: Positive: No significant arrhythmia, Negative: Tachycardia, Bradycardia Abdomen Exam: Positive: Normal bowel sounds, Soft, Negative: Tenderness, Hepatospenomegaly Extremity Exam: Positive: Edema (trace b/l LE- better from one day prior), Negative: Clubbing, Cyanosis Psych Exam: Positive: Mental status NL Assessment /Plan Problems (1) Acute renal failure Status: Acute Response to Treatment: Stable Problem Text: Acute on chronic renal failure Pt AAOx3, BUN/ CR 140/7.9 have requested records from nephrology office for pt baseline labs nephrology on consult-greatly appreciate their recommendation- Pt will receive dialysis and catheter dialysis placement today by Dr. Caldwell of vascular surgery H/H 8 and 23.9 today, pt has been type and crossed w/ plan to receive transfusion today during dialysis Renal diet continue to hold lasix, allopurinol and vitamin C (2) Hyperkalemia Status: Acute Response to Treatment: Stable Problem Text: Pt received 30 of Kayexelate in ED-came down to 5.5 after this K currently 4.9, no EKG changes concerning for hyperkalemia Pt being admitted to PCU cardiac unit for 24 hour monitoring Mag level 1.5 -per nursing staff who has spoken to nephrology today, would like mag level to be around this number as kidney failure patients retain magnesium. We'll hold off on repeating at this point. continue to monitor (3) Anemia Status: Chronic Response to Treatment: Stable Problem Text: H/H stable, platelets 67 chronic in nature, has been worked up extensively with no source found; likely secondary to kidney disease pt may benefit from capsule endoscopy in future, will discuss more w/pt when pt is ready to be d/c pt is stable have type and crossed for transfusion tomorrow during dialysis (4) Atrial fibrillation Status: Chronic Response to Treatment: Stable Problem Text: Stable Will hold anticoagulation in light of current anemia Pt is not normally anticoagulated due to chronic anemia pulse in 70's NSR on EKG in ED continue beta rebecca (5) HTN (hypertension) Status: Chronic Response to Treatment: Stable Problem Text: will continue home medications with hold parameters (6) Metabolic acidemia Status: Acute Response to Treatment: Stable Problem Text: pt receive sodium citrate from nephrology in ED will be dialyzed tomorrow continue to monitor (7) Hyperlipidemia Status: Chronic Response to Treatment: Stable Problem Text: c/w home medications (8) BPH (benign prostatic hyperplasia) Status: Chronic Response to Treatment: Stable Problem Text: c/w home medications (9) Asthma Status: Chronic Response to Treatment: Stable Problem Text: duonebs (10) Hematuria Status: Acute Response to Treatment: Stable Problem Text: Apparently the patient had a traumatic Nieto placement overnight- history of BPH on Flomax H&H stable Bright red urine in Nieto and that this morning At this point we'll continue to monitor for resolution (11) History of heart valve replacement with bioprosthetic valve Status: Chronic Response to Treatment: Stable Problem Text: Stable Aortic murmur present on exam History of aortic valve replaced, pig Continue to monitor (12) DVT prophylaxis Status: Acute Response to Treatment: Stable Problem Text: scd teds Plan/VTE VTE Prophylaxis Ordered?: Yes Plan/Urinary Catheter Reason for insertion/continuin: Critical Pt monitoring VS, I&O, 24H, Fishbone Vital Signs/I&O Vital Signs Date Time Temp Pulse Resp B/P (MAP) Pulse Ox O2 Delivery O2 Flow Rate FiO2 01/23/17 08:24 79 168/72 01/23/17 08:00 98.3 18 97 Room Air I&O- Last 24 Hours up to 6 AM 01/23/17 06:00 Intake Total 1425 ml Output Total 125 ml Balance 1300 ml Laboratory Data 24H LABS Laboratory Tests 2 01/22/17 17:05: White Blood Count 3.5L, Red Blood Count 2.57L, Hemoglobin 8.0L, Hematocrit 23.9L , Mean Corpuscular Volume 92.8, Mean Corpuscular Hemoglobin 31.1, Mean Corpuscular Hemoglobin Concent 33.5, Red Cell Distribution Width 16.2H, Platelet Count 73L, Neutrophils (%) (Auto) 61.2, Lymphocytes (%) (Auto) 11.5L, Monocytes (%) (Auto) 7.5H, Eosinophils (%) (Auto) 13.3H, Basophils (%) (Auto) 0.2, Neutrophils # (Auto) 2.2, Lymphocytes # (Auto) 0.4L, Monocytes # (Auto) 0.3 , Eosinophils # (Auto) 0.5, Basophils # (Auto) 0.0, Large Unclassified Cells % 6.3H, Large Unclassified Cells # 0.2, Prothrombin Time 14.5, Prothromb Time International Ratio 1.11, Activated Partial Thromboplast Time 30.5, Anion Gap 12 , Glomerular Filtration Rate 7.2L, Estimated Mean Plasma Glucose 126H, Hemoglobin A1c 6.0, Calcium Level 8.3L, Phosphorus Level 6.7H, Magnesium Level 1.4L, Iron Level 139, Total Iron Binding Capacity 248L, Transferrin % Saturation 56.0H, Ferritin 265, Aspartate Amino Transf (AST/SGOT) 13L, Alanine Aminotransferase (ALT/SGPT) 19, Alkaline Phosphatase 91, Total Bilirubin 0.8, Direct Bilirubin 0.2, Total Creatine Kinase 108, Creatine Kinase MB 1.3, Creatine Kinase MB Relative Index 1.20, Troponin I < 0.02, Total Protein 7.0, Albumin 3.8, Albumin/Globulin Ratio 1.19, Triglycerides Level 101, Total Cholesterol 87, LDL Cholesterol 41.8, Non-HDL Cholesterol (LDL + VLDL) 62, Total HDL Cholesterol 25L, Cholesterol/HDL Ratio 3.480, Thyroid Stimulating Hormone (TSH) 2.050, Free Thyroxine 1.04, Parathyroid Hormone (Intact) 125.8H 01/23/17 00:05: Anion Gap 12, Glomerular Filtration Rate 6.9L, Calcium Level 8.2L, Magnesium Level 1.1L, Aspartate Amino Transf (AST/SGOT) 11L, Alanine Aminotransferase (ALT /SGPT) 19, Alkaline Phosphatase 88, Total Bilirubin 0.8, Total Protein 7.5, Albumin 3.7, Albumin/Globulin Ratio 0.97L, Blood Urea Nitrogen 139H, Creatinine 8.21H, Sodium Level 141, Potassium Level 5.5H, Chloride Level 112H, Carbon Dioxide Level 17L 01/23/17 05:00: White Blood Count 3.3L, Red Blood Count 2.57L, Hemoglobin 8.0L, Hematocrit 23.9L , Mean Corpuscular Volume 93.3, Mean Corpuscular Hemoglobin 31.1, Mean Corpuscular Hemoglobin Concent 33.4, Red Cell Distribution Width 16.1H, Platelet Count 67L, Neutrophils (%) (Auto) 54.7, Lymphocytes (%) (Auto) 12.9L, Monocytes (%) (Auto) 10.9H, Eosinophils (%) (Auto) 13.6H, Basophils (%) (Auto) 0.6, Neutrophils # (Auto) 1.8, Lymphocytes # (Auto) 0.4L, Monocytes # (Auto) 0.4 , Eosinophils # (Auto) 0.4, Basophils # (Auto) 0.0, Large Unclassified Cells % 7.3H, Large Unclassified Cells # 0.2, Anion Gap 13, Glomerular Filtration Rate 7.2L, Calcium Level 7.6L, Magnesium Level 1.5L, Blood Urea Nitrogen 140H, Creatinine 7.94H, Sodium Level 143, Potassium Level 4.9, Chloride Level 113H, Carbon Dioxide Level 17L, Differential Slide Review Report, Differential Pathologist's Review COMPREHENSIVE REVIEW, Peripheral Blood Smear Path Consult PERIPHERAL SMEAR CBC/BMP Laboratory Tests 01/22/17 17:05 Red Blood Count 2.57 L, Mean Corpuscular Volume 92.8, Mean Corpuscular Hemoglobin 31.1, Mean Corpuscular Hemoglobin Concent 33.5, Red Cell Distribution Width 16.2 H, Neutrophils (%) (Auto) 61.2, Lymphocytes (%) (Auto) 11.5 L, Monocytes (%) (Auto) 7.5 H, Eosinophils (%) (Auto) 13.3 H, Basophils (% ) (Auto) 0.2, Neutrophils # (Auto) 2.2, Lymphocytes # (Auto) 0.4 L, Monocytes # (Auto) 0.3, Eosinophils # (Auto) 0.5, Basophils # (Auto) 0.0 01/23/17 00:05 Calcium Level 8.2 L, Aspartate Amino Transf (AST/SGOT) 11 L, Alanine Aminotransferase (ALT/SGPT) 19, Alkaline Phosphatase 88, Total Bilirubin 0.8, Total Protein 7.5, Albumin 3.7 01/23/17 05:00 Red Blood Count 2.57 L, Mean Corpuscular Volume 93.3, Mean Corpuscular Hemoglobin 31.1, Mean Corpuscular Hemoglobin Concent 33.4, Red Cell Distribution Width 16.1 H, Neutrophils (%) (Auto) 54.7, Lymphocytes (%) (Auto) 12.9 L, Monocytes (%) (Auto) 10.9 H, Eosinophils (%) (Auto) 13.6 H, Basophils (% ) (Auto) 0.6, Neutrophils # (Auto) 1.8, Lymphocytes # (Auto) 0.4 L, Monocytes # (Auto) 0.4, Eosinophils # (Auto) 0.4, Basophils # (Auto) 0.0, Calcium Level 7.6 L Microbiology Microbiology 01/22/17 Stool Occult Blood (TUCKER) - Final, Complete GME ATTESTATION GME ATTESTATION My preceptor for this patient encounter was physically present in the building during the encounter and was fully available. As needed, all aspects of the patient interview, examination, medical decision making process, and medical care plan development were reviewed and approved by the preceptor. Preceptor is aware and concurs with the plan as stated in the body of this note and will attest to such by his/her cosignature. KASSIE ALFONSO DO Jan 23, 2017 14:14 ANTONIETA WINTERS Jan 23, 2017 16:29
[2017-01-23 18:10] VITALS: BP 147/63
--- NOTE | 2017-01-23 19:05 | ECGEPIP ---
Stationary ECG Study [facility] Test Date: 2017-01-23 Pat Name: LAITH ZEPEDA Department: Room: [place] [address] Gender: M Home Health Registered Nurse: RUBNE : 1945 Requested By: KASSIE ALFONSO Order Number: [id number] Reading MD: Royce Brower Measurements Intervals [place] Rate: 82 P: [place]: 0 QRS: 38 QRSD: 155 T: -3 QT: 432 QTc: 506 Interpretive Statements Normal sinus rhythm LA conduction disturbance? Right bundle branch block No change from 01/22/17 Electronically Signed On 01-23-2017 19:04:57 EDT by Royce Brower
[2017-01-23] MEDS: TAMSULOSIN 0.4 MG CAP PO SCH (20:36)
[2017-01-23] MEDS: SIMVASTATIN 20 MG TAB PO SCH (20:36)
[2017-01-23] MEDS: TERAZOSIN 1 MG CAP PO SCH (20:36)
[2017-01-23 22:00] VITALS: BP 142/63
[2017-01-23] MEDS ORDERED: CALCIUM CARBONATE 500 MG CHEW U/D PO PRN (22:45)
[2017-01-24 06:00] VITALS: BP 118/59
[2017-01-24] MEDS: SLF 3 ML SYR IV SCH ×3 (06:02→20:09)
[2017-01-24 06:25] LABS: BASO % 0.5 % (0.0-1.0); EOS # 0.4 K/mm3 (0.0-0.50); LARGE UNSTAINED CELL # 0.2 K/mm3 (0.0-0.4); LARGE UNSTAINED CELL % 4.2 % (0.0-4.0); LYMPH # 0.4 K/mm3 (1.5-4.5); LYMPH % 11.4 % (24.0-44.0); MEAN CORPUSCULAR HGB CONC 34.3 g/dl (32.0-36.5); MEAN CORPUSCULAR VOLUME 90.5 fl (80.0-96.0); MONO # 0.4 K/mm3 (0.0-0.8); MONO % 10.9 % (0.0-5.0); NEUTROPHILS # 2.2 K/mm3 (1.8-7.7); RED CELL DISTRIBUTION WIDTH 16.5 % (11.5-14.5); WHITE BLOOD COUNT 3.6 K/mm3 (4.0-10.0)
[2017-01-24 06:26] LABS: PLATELET COUNT, AUTOMATED 64 k/mm3 (150-450)
[2017-01-24 06:31] LABS: CALCIUM LEVEL 7.8 MG/DL (8.8-10.2); CREATININE FOR GFR 3.67 MG/DL (0.70-1.30); GLOMERULAR FILTRATION RATE 17.4 (>42); MAGNESIUM LEVEL 1.8 MG/DL (1.8-2.4); POTASSIUM SERUM 3.8 MEQ/L (3.5-5.1)
[2017-01-24] MEDS: ADVAIR HFA 115/21MCG INHALER INH SCH ×2 (08:01→20:49)
[2017-01-24] MEDS: amLODIPine 10 MG TAB PO SCH (08:20)
[2017-01-24] MEDS: SODIUM BICARBONATE 325 MG TAB PO SCH (08:20)
[2017-01-24] MEDS: CARVedilol 12.5 MG TAB PO SCH ×2 (08:20→20:08)
[2017-01-24] MEDS: BICITRA 30ML SOLN UDC PO SCH (08:20)
[2017-01-24] MEDS: PANTOPRAZOLE 40MG TAB (PROTONIX) PO SCH (08:20)
[2017-01-24 08:38] LABS: HEPATITIS B SURFACE ANTIBODY NEGATIVE (POSITIVE)
--- NOTE | 2017-01-24 12:55 | IPNPDOC ---
Subjective Date Seen The patient was seen on 01/24/17. Subjective Chief Complaint/HPI The patient is a 71-year-old male admitted with a reason for visit of Acute Renal Failure,Anemia,Hyperkalemia. General: Denies: Chills Constitutional: Denies: Chills, Fever, Malaise Eyes: Denies: Vision change ENT: Denies: Head Aches Skin: Denies: Rash, Lesions Pulmonary: Denies: Dyspnea, Cough Cardiovascular: Denies: Chest Pain, Palpitations Gastrointestinal: Denies: Nausea, Vomiting, Abdominal Pain Genitourinary: Denies: Dysuria, Frequency Hematologic: Denies: Bruising Musculoskeletal: Denies: Neck Pain Neurological: Denies: Weakness Psych: Reports: Mood Normal Objective Physical Examination General Exam: Positive: Alert, Cooperative, No Acute Distress Eye Exam: Positive: PERRLA, Conjunctiva & lids normal, EOMI, Negative: Sclera icteric ENT Exam: Positive: Atraumatic, Mucous membr. moist/pink, Pharynx Normal, Tongue Midline Neck Exam: Positive: Supple, Negative: JVD, thyromegaly Chest Exam: Positive: Clear to auscultation, Negative: Rales, Rhonchi, Wheezing, Diminished Heart Exam: Positive: Rate Normal, Regular Rhythm, Normal S2, Murmurs (aortic pig valve aortic murmur-uncahnged from admission), Negative: Normal S1, Rubs, Other Telemetry: Positive: No significant arrhythmia, Negative: Tachycardia, Bradycardia Abdomen Exam: Positive: Normal bowel sounds, Soft, Negative: Tenderness, Hepatospenomegaly Extremity Exam: Positive: Edema (trace b/l LE- better again from one day prior) , Negative: Clubbing, Cyanosis Psych Exam: Positive: Mental status NL Assessment /Plan Problems (1) Acute renal failure Status: Acute Response to Treatment: Stable Problem Text: Acute on chronic renal failure Pt AAOx3, BUN/ CR 75/3.67 nephrology on consult-greatly appreciate their recommendation-pt dialyzed one day ago w/plans of another dialysis today and potentially tomorrow w/outpt dialysis needing to be scheduled M,W,F c/w Renal diet continue to hold lasix, allopurinol and vitamin C (2) Hyperkalemia Status: Acute Response to Treatment: Stable Problem Text: Currently 3.8 continue to monitor Pt received 30 of Kayexelate in ED no EKG changes concerning for hyperkalemia per nursing staff who has spoken to nephrology, would like mag level to be around 1.5, as kidney failure patients retain magnesium. Currently mag is 1.8 continue to monitor (3) Anemia Status: Chronic Response to Treatment: Stable Problem Text: 8.07/29.8 currently H/H stable, platelets 64 now received unit of RBC in dialysis one day ago chronic in nature, has been worked up extensively with no source found; likely secondary to kidney disease pt may benefit from capsule endoscopy in future, will discuss more w/pt when pt is ready to be d/c pt is stable (4) Atrial fibrillation Status: Chronic Response to Treatment: Stable Problem Text: Stable Will hold anticoagulation in light of current anemia Pt is not normally anticoagulated due to chronic anemia pulse in 70's NSR on EKG in ED continue beta rebecca (5) HTN (hypertension) Status: Chronic Response to Treatment: Stable Problem Text: will continue home medications with hold parameters (6) Metabolic acidemia Status: Acute Response to Treatment: Stable Problem Text: pt receive sodium citrate from nephrology s/p dialysis one day ago continue to monitor (7) Hyperlipidemia Status: Chronic Response to Treatment: Stable Problem Text: c/w home medications (8) BPH (benign prostatic hyperplasia) Status: Chronic Response to Treatment: Stable Problem Text: c/w home medications (9) Asthma Status: Chronic Response to Treatment: Stable Problem Text: c/w duonebs (10) Hematuria Status: Acute Response to Treatment: Stable Problem Text: Hematuria has resolved this morning H:H stable continue to monitor Apparently the patient had a traumatic Tan placement two nights ago- he does have a history of BPH on home Flomax There was inititally bright red urine in Tan the morning after traumatic tan placement (11) History of heart valve replacement with bioprosthetic valve Status: Chronic Response to Treatment: Stable Problem Text: Stable Aortic murmur present on exam History of aortic valve replaced, pig Continue to monitor (12) DVT prophylaxis Status: Acute Response to Treatment: Stable Problem Text: scd teds Plan/VTE VTE Prophylaxis Ordered?: Yes Plan/Urinary Catheter Reason for insertion/continuin: Critical Pt monitoring VS, I&O, 24H, Fishbone Vital Signs/I&O Vital Signs Date Time Temp Pulse Resp B/P (MAP) Pulse Ox O2 Delivery O2 Flow Rate FiO2 01/24/17 08:20 78 118/59 01/24/17 08:00 Room Air 01/24/17 06:00 98.9 18 94 I&O- Last 24 Hours up to 6 AM 01/24/17 06:00 Intake Total 1545 ml Output Total 1700 ml Balance -155 ml Laboratory Data 24H LABS Laboratory Tests 2 01/24/17 05:54: White Blood Count 3.6L, Red Blood Count 2.63L, Hemoglobin 8.1L, Hematocrit 23.8L , Mean Corpuscular Volume 90.5, Mean Corpuscular Hemoglobin 31.0, Mean Corpuscular Hemoglobin Concent 34.3, Red Cell Distribution Width 16.5H, Platelet Count 64L, Neutrophils (%) (Auto) 63.0, Lymphocytes (%) (Auto) 11.4L, Monocytes (%) (Auto) 10.9H, Eosinophils (%) (Auto) 10.0H, Basophils (%) (Auto) 0.5, Neutrophils # (Auto) 2.2, Lymphocytes # (Auto) 0.4L, Monocytes # (Auto) 0.4 , Eosinophils # (Auto) 0.4, Basophils # (Auto) 0.0, Large Unclassified Cells % 4.2H, Large Unclassified Cells # 0.2, Anion Gap 9, Glomerular Filtration Rate 17.4L, Blood Urea Nitrogen 75H, Creatinine 3.67#H, Sodium Level 139, Potassium Level 3.8#, Chloride Level 106, Carbon Dioxide Level 24, Calcium Level 7.8L, Magnesium Level 1.8 CBC/BMP Laboratory Tests 01/24/17 05:54 Red Blood Count 2.63 L, Mean Corpuscular Volume 90.5, Mean Corpuscular Hemoglobin 31.0, Mean Corpuscular Hemoglobin Concent 34.3, Red Cell Distribution Width 16.5 H, Neutrophils (%) (Auto) 63.0, Lymphocytes (%) (Auto) 11.4 L, Monocytes (%) (Auto) 10.9 H, Eosinophils (%) (Auto) 10.0 H, Basophils (% ) (Auto) 0.5, Neutrophils # (Auto) 2.2, Lymphocytes # (Auto) 0.4 L, Monocytes # (Auto) 0.4, Eosinophils # (Auto) 0.4, Basophils # (Auto) 0.0, Calcium Level 7.8 L Microbiology Microbiology 01/22/17 Stool Occult Blood (TUCKER) - Final, Complete GME ATTESTATION GME ATTESTATION My preceptor for this patient encounter was physically present in the building during the encounter and was fully available. As needed, all aspects of the patient interview, examination, medical decision making process, and medical care plan development were reviewed and approved by the preceptor. Preceptor is aware and concurs with the plan as stated in the body of this note and will attest to such by his/her cosignature. KASSIE ALFONSO DO Jan 24, 2017 12:55 ANTONIETA WINTERS Jan 24, 2017 17:28
[2017-01-24] MEDS ORDERED: HEPARIN 1,000 UNITS/ML 10ML VIAL (FOR RADIOLOGY& DIALYSIS ONLY) XX ONE (14:30)
[2017-01-24] MEDS ORDERED: LIDOCAINE 1% SDV 5 ML VIAL SQ ONE (14:30)
[2017-01-24 16:30] VITALS: BP 158/62
[2017-01-24] MEDS ORDERED: DARBEPOETIN 100 MCG/0.5 ML *DIALYSIS* SYRINGE (J0882) IV SCH (17:45)
[2017-01-24 20:00] VITALS: BP 159/72
[2017-01-24] MEDS: SIMVASTATIN 20 MG TAB PO SCH (20:08)
[2017-01-24] MEDS: TERAZOSIN 1 MG CAP PO SCH (20:09)
[2017-01-25 05:40] VITALS: BP 144/66
[2017-01-25] MEDS: SLF 3 ML SYR IV SCH ×3 (06:40→20:08)
[2017-01-25 06:43] LABS: BASO % 0.3 % (0.0-1.0); EOS # 0.3 K/mm3 (0.0-0.50); EOS % 10.5 % (0.0-3.0); LARGE UNSTAINED CELL # 0.1 K/mm3 (0.0-0.4); LARGE UNSTAINED CELL % 3.9 % (0.0-4.0); LYMPH # 0.6 K/mm3 (1.5-4.5); LYMPH % 13.9 % (24.0-44.0); MEAN CORPUSCULAR HEMOGLOBIN 31.3 pg (27.0-33.0); MEAN CORPUSCULAR VOLUME 92.2 fl (80.0-96.0); MONO # 0.4 K/mm3 (0.0-0.8); MONO % 12.4 % (0.0-5.0); NEUTROPHILS # 1.9 K/mm3 (1.8-7.7); NEUTROPHILS % 58.9 % (36.0-66.0); RED CELL DISTRIBUTION WIDTH 16.7 % (11.5-14.5); WHITE BLOOD COUNT 3.2 K/mm3 (4.0-10.0)
[2017-01-25 06:46] LABS: PLATELET COUNT, AUTOMATED 47 k/mm3 (150-450)
--- NOTE | 2017-01-25 06:47 | REP ---
C-ARM VIEW CHEST: C-arm view of the chest is performed during placement of the dialysis catheter. The tip of the dialysis catheter is in the right atrium. 0.2 minutes fluoroscopy time utilized for the procedure. Signed by Bakari Maddox MD 01/25/2017 03:18 P
[2017-01-25 07:00] LABS: CALCIUM LEVEL 8.9 MG/DL (8.8-10.2); CREATININE FOR GFR 2.16 MG/DL (0.70-1.30); GLOMERULAR FILTRATION RATE 32.2 (>42); MAGNESIUM LEVEL 1.9 MG/DL (1.8-2.4); POTASSIUM SERUM 4.1 MEQ/L (3.5-5.1)
[2017-01-25] MEDS: ADVAIR HFA 115/21MCG INHALER INH SCH ×3 (07:45→19:45)
[2017-01-25] MEDS: CARVedilol 12.5 MG TAB PO SCH ×2 (08:17→20:09)
[2017-01-25] MEDS: PANTOPRAZOLE 40MG TAB (PROTONIX) PO SCH (08:17)
[2017-01-25] MEDS: amLODIPine 10 MG TAB PO SCH (08:18)
--- NOTE | 2017-01-25 10:36 | IPNPDOC ---
Subjective Date Seen The patient was seen on 01/25/17. Subjective Chief Complaint/HPI The patient is a 71-year-old male admitted with a reason for visit of Acute Renal Failure,Anemia,Hyperkalemia. General: Denies: Chills, Night Sweats Constitutional: Denies: Chills, Fever, Malaise, Night Sweats Eyes: Denies: Conjunctivae inflammation ENT: Denies: Head Aches Skin: Denies: Rash, Lesions, Jaundice Pulmonary: Denies: Dyspnea, Cough Cardiovascular: Denies: Chest Pain, Palpitations, Orthopnea, Edema, Lt Headedness Gastrointestinal: Denies: Nausea, Vomiting, Abdominal Pain Genitourinary: Denies: Dysuria, Frequency Neurological: Denies: Weakness Psych: Reports: Mood Normal Objective Physical Examination General Exam: Positive: Alert, Cooperative, No Acute Distress Eye Exam: Positive: PERRLA, Conjunctiva & lids normal, EOMI, Negative: Sclera icteric ENT Exam: Positive: Atraumatic, Mucous membr. moist/pink, Pharynx Normal, Tongue Midline Neck Exam: Positive: Supple, Negative: JVD, thyromegaly Chest Exam: Positive: Clear to auscultation, Negative: Rales, Rhonchi, Wheezing, Diminished Heart Exam: Positive: Rate Normal, Regular Rhythm, Normal S2, Murmurs (aortic pig valve aortic murmur-unchanged from admission), Negative: Normal S1, Rubs, Other Telemetry: Positive: No significant arrhythmia, Negative: Tachycardia, Bradycardia Abdomen Exam: Positive: Normal bowel sounds, Soft, Negative: Tenderness, Hepatospenomegaly Extremity Exam: Positive: Edema (pt is up and walking around with no difficulty - minimal, trace b/l LE edema appreciated), Negative: Clubbing, Cyanosis Skin Exam: Negative: Breakdown Psych Exam: Positive: Mental status NL, Oriented x 3 Assessment /Plan Problems (1) Acute renal failure Status: Acute Response to Treatment: Stable Problem Text: Acute on chronic renal failure Pt AAOx3, BUN/ CR 36/2.16 nephrology on consult-greatly appreciate their recommendation-pt dialyzed for the second time one day ago w/plans of another potential dialysis today working to schedule w/outpt dialysis needing on M,,F-as works and this is the best schedule for her c/w Renal diet continue to hold lasix, allopurinol and vitamin C (2) Hyperkalemia Status: Acute Response to Treatment: Stable Problem Text: Currently 4.1 continue to monitor -stable Pt had received 30 of Kayexelate in ED for initial hyperkalemia on presentation no EKG changes concerning for hyperkalemia per nursing staff who has spoken to nephrology, would like mag level to be around 1.5, as kidney failure patients retain magnesium. Currently mag is 1.8 continue to monitor (3) Anemia Status: Chronic Response to Treatment: Stable Problem Text: 8.6/25.3 improved-stable H/H stable, platelets 47 now received unit of RBC in dialysis two days ago chronic in nature, has been worked up extensively with no source found; likely secondary to kidney disease pt may benefit from capsule endoscopy in future, will discuss more w/pt when pt is ready to be d/c pt is stable (4) Atrial fibrillation Status: Chronic Response to Treatment: Stable Problem Text: Stable Will hold anticoagulation in light of current anemia Pt is not normally anticoagulated due to chronic anemia pulse in 80's NSR on EKG in ED continue beta rebecca (5) HTN (hypertension) Status: Chronic Response to Treatment: Stable Problem Text: 144/66 stable will continue home medications with hold parameters (6) Metabolic acidemia Status: Acute Response to Treatment: Stable Problem Text: pt receive sodium citrate from nephrology s/p dialysis one day ago continue to monitor (7) Hyperlipidemia Status: Chronic Response to Treatment: Stable Problem Text: c/w home medications (8) BPH (benign prostatic hyperplasia) Status: Chronic Response to Treatment: Stable Problem Text: c/w home medications (9) Asthma Status: Chronic Response to Treatment: Stable Problem Text: no SOB-patient looks and states he feels well, was up out of bed walking around w/o any difficulty c/w duonebs (10) Hematuria Status: Acute Response to Treatment: Stable Problem Text: Hematuria has resolved this morning H:H stable continue to monitor Apparently the patient had a traumatic Tan placement two nights ago- he does have a history of BPH on home Flomax There was inititally bright red urine in Tan the morning after traumatic tan placement (11) History of heart valve replacement with bioprosthetic valve Status: Chronic Response to Treatment: Stable Problem Text: Stable Aortic murmur present on exam History of aortic valve replaced, pig Continue to monitor (12) DVT prophylaxis Status: Acute Response to Treatment: Stable Problem Text: scd teds Plan/VTE VTE Prophylaxis Ordered?: Yes Plan/Urinary Catheter Reason for insertion/continuin: Critical Pt monitoring VS, I&O, 24H, Fishbone Vital Signs/I&O Vital Signs Date Time Temp Pulse Resp B/P (MAP) Pulse Ox O2 Delivery O2 Flow Rate FiO2 01/25/17 08:17 86 144/66 01/25/17 05:40 98.7 22 95 Room Air I&O- Last 24 Hours up to 6 AM 01/25/17 05:59 Intake Total 1080 ml Output Total 1575 ml Balance -495 ml Laboratory Data 24H LABS Laboratory Tests 2 01/25/17 06:12: White Blood Count 3.2L, Red Blood Count 2.74L, Hemoglobin 8.6L, Hematocrit 25.3L , Mean Corpuscular Volume 92.2, Mean Corpuscular Hemoglobin 31.3, Mean Corpuscular Hemoglobin Concent 34.0, Red Cell Distribution Width 16.7H, Platelet Count 47L, Neutrophils (%) (Auto) 58.9, Lymphocytes (%) (Auto) 13.9L, Monocytes (%) (Auto) 12.4H, Eosinophils (%) (Auto) 10.5H, Basophils (%) (Auto) 0.3, Neutrophils # (Auto) 1.9, Lymphocytes # (Auto) 0.6L, Monocytes # (Auto) 0.4 , Eosinophils # (Auto) 0.3, Basophils # (Auto) 0.0, Large Unclassified Cells % 3.9, Large Unclassified Cells # 0.1, Anion Gap 9, Glomerular Filtration Rate 32.2L, Blood Urea Nitrogen 36#H, Creatinine 2.16H, Sodium Level 142, Potassium Level 4.1, Chloride Level 108H, Carbon Dioxide Level 25, Calcium Level 8.9, Magnesium Level 1.9 CBC/BMP Laboratory Tests 01/25/17 06:12 Red Blood Count 2.74 L, Mean Corpuscular Volume 92.2, Mean Corpuscular Hemoglobin 31.3, Mean Corpuscular Hemoglobin Concent 34.0, Red Cell Distribution Width 16.7 H, Neutrophils (%) (Auto) 58.9, Lymphocytes (%) (Auto) 13.9 L, Monocytes (%) (Auto) 12.4 H, Eosinophils (%) (Auto) 10.5 H, Basophils (% ) (Auto) 0.3, Neutrophils # (Auto) 1.9, Lymphocytes # (Auto) 0.6 L, Monocytes # (Auto) 0.4, Eosinophils # (Auto) 0.3, Basophils # (Auto) 0.0, Calcium Level 8.9 Microbiology Microbiology 01/22/17 Stool Occult Blood (TUCKER) - Final, Complete GME ATTESTATION GME ATTESTATION My preceptor for this patient encounter was physically present in the building during the encounter and was fully available. As needed, all aspects of the patient interview, examination, medical decision making process, and medical care plan development were reviewed and approved by the preceptor. Preceptor is aware and concurs with the plan as stated in the body of this note and will attest to such by his/her cosignature. KASSIE ALFONSO DO Jan 25, 2017 10:35 ANTONIETA WINTERS Jan 26, 2017 13:52
[2017-01-25] MEDS ORDERED: HEPARIN 1,000 UNITS/ML 10ML VIAL (FOR RADIOLOGY& DIALYSIS ONLY) XX ONE (10:45)
[2017-01-25] MEDS ORDERED: LIDOCAINE 1% SDV 5 ML VIAL SQ ONE (10:45)
--- NOTE | 2017-01-25 13:32 | IPN ---
DATE: 01/24/2017 SUBJECTIVE: The patient was seen and examined at the bedside today morning during hemodialysis. The patient was tolerating the hemodialysis well. There was no complaint. He tolerated yesterday's hemodialysis as well. He reports that he feels much better after yesterday's hemodialysis. His tremors have improved and his appetite is also getting better. REVIEW OF SYSTEMS: The patient denies any fevers, chills, rigors, headache, nausea, vomiting, or chest pain. He reports his appetite coming back, abdominal pain improving. He denies any pain of abdomen, constipation or diarrhea. The rest of the review of systems is negative. OBJECTIVE: VITAL SIGNS: Temperature 97.8 degrees Fahrenheit. Blood pressure 158/62. Pulse 85. Respiratory rate 18. Saturation 98% on room air. INTAKE AND OUTPUT: Urine output recorded as 900 mL yesterday and 900 mL so far today since overnight as well. Ultra filtration with hemodialysis was 500 mL. Weight on the bed scale is 89.3 kg. PHYSICAL EXAMINATION: GENERAL: The patient is awake, alert and oriented times three, laying in bed, getting hemodialysis done. No apparent distress. HEAD AND NECK EXAM: Extraocular muscles intact. Pupils equally round and reactive to light. Mucous membranes are moist. Neck is supple. There is no jugular venous distention (JVD). CARDIOVASCULAR: S1, S2, regular rate. No murmur, rub or gallop. RESPIRATORY: Chest is clear to auscultation bilaterally. Bilateral equal air entry. No rales or rhonchi. ABDOMEN: Soft. Positive bowel sounds. Nontender. No ascites. No organomegaly. EXTREMITIES: No clubbing or cyanosis. Trace edema of the bilateral lower extremities. Pulses are 2+. CENTRAL NERVOUS SYSTEM: No focal neurological deficit. Power is 5/5 in bilateral upper and lower extremities. PSYCHIATRIC: Normal mood and affect. LAB REVIEW: CBC showed a WBC of 3.6, hemoglobin 8.1 and platelets 64,000. BMP showed sodium 139, potassium 3.8, chloride 106, bicarbonate 24, BUN 75, creatinine 3.6, calcium 7.8, magnesium 1.8. CURRENT INPATIENT MEDICATIONS: The patient's medications were all reviewed by me. I have stopped his Bicitra and sodium bicarbonate. Flomax has also been stopped as well. There is no other change in the medications today as compared with yesterday. I have also started the patient on Aranesp with hemodialysis. ASSESSMENT: 71-year-old male who has progressed to end stage renal disease requiring hemodialysis. PLAN: 1. End stage renal disease. The patient was started on hemodialysis yesterday. He is getting a second session of hemodialysis today. He will be dialyzed today for three hours. We shall do an ultra filtration of about 500 mL as tolerated by his blood pressure. The patient's uremic symptoms are getting better. Social work for placement. Patient on Friday, Friday, Friday dialysis as outpatient is in progress. 2. Pancytopenia. The patient has pancytopenia which is chronic. He has required multiple blood transfusions as outpatient. I got the peripheral smear done yesterday which showed pancytopenia and no significant morphological abnormalities. The patient got one unit of packed red blood cells (PRBC) transfusion yesterday. No further need of blood transfusion at this time. Aranesp dose will be given tomorrow with hemodialysis. 3. Long standing hypertension. Blood pressure is acceptable at this time. Hemodialysis and ultra filtration would also reduce the blood pressure. Continue the current dose of Coreg 12.5 mg by mouth twice a day, amlodipine 10 mg by mouth daily and terazosin 2 mg by mouth at bedtime. 4. Benign prostatic hypertrophy. The patient was on Flomax and terazosin together. Both of them are alpha blockers, they do not need to be given together. I have stopped the Flomax. 5. Metabolic acidosis. The patient's acidosis is improving with hemodialysis. Bicarbonate is 24 now. I have stopped Bicitra and sodium bicarbonate. 6. Discharge planning. The patient will get another session of hemodialysis tomorrow. He should be able to be discharged over the weekend if an outpatient hemodialysis chair is available for Friday, Friday and Friday.
[2017-01-25 14:00] VITALS: BP 162/73
[2017-01-25 19:54] VITALS: BP 157/93
[2017-01-25] MEDS: TERAZOSIN 1 MG CAP PO SCH (20:08)
[2017-01-25] MEDS: SIMVASTATIN 20 MG TAB PO SCH (20:09)
[2017-01-26] MEDS: SLF 3 ML SYR IV SCH (05:16)
[2017-01-26 05:29] VITALS: BP 137/63
[2017-01-26 06:21] LABS: BASO % 0.6 % (0.0-1.0); EOS # 0.4 K/mm3 (0.0-0.50); EOS % 9.1 % (0.0-3.0); LARGE UNSTAINED CELL # 0.2 K/mm3 (0.0-0.4); LARGE UNSTAINED CELL % 5.4 % (0.0-4.0); LYMPH # 0.6 K/mm3 (1.5-4.5); LYMPH % 12.7 % (24.0-44.0); MEAN CORPUSCULAR HEMOGLOBIN 31.2 pg (27.0-33.0); MEAN CORPUSCULAR HGB CONC 33.5 g/dl (32.0-36.5); MONO # 0.6 K/mm3 (0.0-0.8); MONO % 12.9 % (0.0-5.0); NEUTROPHILS # 2.6 K/mm3 (1.8-7.7); NEUTROPHILS % 59.4 % (36.0-66.0); RED CELL DISTRIBUTION WIDTH 16.5 % (11.5-14.5); WHITE BLOOD COUNT 4.4 K/mm3 (4.0-10.0)
[2017-01-26 06:22] LABS: PLATELET COUNT, AUTOMATED 45 k/mm3 (150-450)
[2017-01-26 06:34] LABS: CALCIUM LEVEL 8.5 MG/DL (8.8-10.2); CREATININE FOR GFR 1.82 MG/DL (0.70-1.30); GLOMERULAR FILTRATION RATE 39.2 (>42); MAGNESIUM LEVEL 1.7 MG/DL (1.8-2.4); POTASSIUM SERUM 3.9 MEQ/L (3.5-5.1)
[2017-01-26] MEDS: ADVAIR HFA 115/21MCG INHALER INH SCH ×2 (07:47→20:47)
[2017-01-26] MEDS: PANTOPRAZOLE 40MG TAB (PROTONIX) PO SCH (08:29)
[2017-01-26] MEDS: amLODIPine 10 MG TAB PO SCH (08:29)
[2017-01-26] MEDS: CARVedilol 12.5 MG TAB PO SCH ×2 (08:29→20:05)
[2017-01-26 11:05] LABS: PHOSPHORUS LEVEL 1.9 MG/DL (2.5-4.9)
--- NOTE | 2017-01-26 13:20 | IPN ---
DATE: 01/25/2017 SUBJECTIVE: Patient was seen and examined at the bedside today morning due to hemodialysis procedure. He was tolerating the hemodialysis procedure well. He does not have any active complaints. REVIEW OF SYSTEMS: Patient denies any fevers, chills, rigors, headache, nausea, vomiting, chest pain, shortness of breath, pain in abdomen, constipation or diarrhea. Rest of review of system is negative. OBJECTIVE: Vital signs: Temperature 98.7 degrees Fahrenheit, blood pressure is 144/66, pulse is 86, respiratory rate of 18, saturating 95% on room air. Intake and output: Urine output recorded as 1 liter yesterday, 500 mL so far today since overnight. Weight on the bed scale is 88.2 kg. PHYSICAL EXAMINATION: General: Patient is awake, alert, oriented times three, lying in bed, no apparent distress. Head and neck exam: Extraocular muscles intact. Pupils equally round and reactive to light. Mucous membranes are moist. Neck is supple, there is no jugular venous distention (JVD). Patient has a right IJ tunneled hemodialysis catheter. Cardiovascular: S1, S2. Regular rate. No murmur, rub or gallop. Respiratory: Chest is clear to auscultation bilaterally. Bilateral equal air entry. No rales or rhonchi. Abdomen is soft, positive bowel sounds, nontender. No ascites. No organomegaly. Musculoskeletal: Pulses are 2+. Extremities have no edema. No cyanosis. Central nervous system: No focal neurological deficit. Power is 5/5 in all extremities. Psych: Normal mood and affect. LAB REVIEW: CBC showed WBC of 3.2, hemoglobin 8.6, platelets are 47. BMP showed sodium 142, potassium 4.1, chloride 108, bicarbonate 25, BUN 36, creatinine 2.1. Calcium 8.9, magnesium 1.9. CURRENT INPATIENT MEDICATIONS: Patient's medications are all reviewed by me. There is no change in the medications today as compared with yesterday. ASSESSMENT: 71-year-old male with chronic anemia, history of hypertension, atrial fibrillation not on anticoagulation, admitted this time because of progression of chronic kidney disease to end stage renal disease. PLAN: 1. End stage renal disease. Patient has been started on hemodialysis. Today is the third session of hemodialysis. We should do this for 3 hours with F180 dialyzer. He is not significantly overloaded. Ultrafiltration will be 500 mL only. Patient is requesting placement as outpatient for Friday, Friday, Friday spot. 2. Pancytopenia. Patient is already being worked up by hematology as outpatient. He has required multiple transfusions in the past. He got one blood transfusion during this admission. Hemoglobin is nicely coming up to 8.6. He was started on Aranesp as well. First dose was given yesterday 200 mcg IV. Continue to monitor for improvement of hemoglobin. Patient is not getting any heparin with hemodialysis. 3. Hypertension. Blood pressure is acceptable at this time. Further hemodialysis and ultrafiltration will also help improve blood pressure. Continue current dose of amlodipine 10 mg daily, Coreg 12.5 mg by mouth twice daily, terazosin 2 mg daily at bedtime. DISCHARGE PLANNING: It is okay to discharge the patient from nephrology standpoint whenever he gets a chair for Friday, Friday, Friday spot at [facility] hemodialysis center. MASSIMO
--- NOTE | 2017-01-26 13:45 | IPNPDOC ---
Date Seen The patient was seen on 01/26/17. Progress Note Hospitalist Progress Note Subjective: Patient states that he feels much better after his 3 episodes of dialysis; he is much more mentally clear Objective: Physical Exam: Vitals: Vital Sign - Last 24 Hours 01/25/17 01/25/17 01/25/17 01/25/17 14:00 19:54 19:55 20:08 Temp 98.8 99.7 Pulse 77 70 Resp 22 17 B/P (MAP) 162/73 (102) 157/93 (114) 157/93 Pulse Ox 98 96 O2 Delivery Room Air Room Air 01/25/17 01/26/17 01/26/17 01/26/17 20:09 05:29 08:29 08:30 Temp 99.5 Pulse 70 71 71 Resp 20 B/P (MAP) 157/93 137/63 (87) 137/63 Pulse Ox 93 O2 Delivery Room Air Room Air General: Alert, oriented, no acute distress HEENT: Normocephalic, atraumatic, moist mucous membranes CV:. Regular rate and rhythm Lungs: Clear to auscultation bilaterally Abd: soft, Nontender, nondistended Extremities: No edema Neuro: Alert and oriented 3, normal speech Psych: normal mood and affect Labs and Imaging: Laboratory Tests 01/26/17 06:00 Red Blood Count 2.56 L, Mean Corpuscular Volume 93.0, Mean Corpuscular Hemoglobin 31.2, Mean Corpuscular Hemoglobin Concent 33.5, Red Cell Distribution Width 16.5 H, Neutrophils (%) (Auto) 59.4, Lymphocytes (%) (Auto) 12.7 L, Monocytes (%) (Auto) 12.9 H, Eosinophils (%) (Auto) 9.1 H, Basophils (% ) (Auto) 0.6, Neutrophils # (Auto) 2.6, Lymphocytes # (Auto) 0.6 L, Monocytes # (Auto) 0.6, Eosinophils # (Auto) 0.4, Basophils # (Auto) 0.0, Calcium Level 8.5 L Assessment and Plan: 71-year-old male with chronic kidney disease which has now progressed to end- stage renal disease, chronic pancytopenia, A. fib, hyperlipidemia, asthma, hypertension, gout, BPH, CAD status post CABG and porcine aortic valve replacement who was sent to the emergency department by his calibration technician for worsening of his kidney disease and initiation of dialysis. 1. Chronic kidney disease which has progressed to end-stage renal disease: Dialysis has been initiated, and the patient is feeling much better. We appreciate nephrology's management of this. We are working with case management to arrange an outpatient dialysis chair 2. Chronic pancytopenia: This is been worked up extensively by his other physicians. He is currently at baseline. 3. A. fib: This is currently rate controlled. He is not anticoagulated secondary to his chronic anemia and chronic thrombocytopenia. 4. CAD status post CABG and porcine aortic valve replacement, hyperlipidemia: Continue home statin and beta rebecca. Patient is not on aspirin given his chronic pancytopenia. 5. Asthma: Currently stable. Continue home Advair and as needed DuoNeb's. 6. Hypertension: Continue home Norvasc and beta rebecca. 7. BPH: Continue home Hytrin. DVT prophylaxis: SCDs Dispo: pending arrangements with case management for an outpatient dialysis chair VS, I&O, 24H, Fishbone Vital Signs/I&O Vital Signs Date Time Temp Pulse Resp B/P (MAP) Pulse Ox O2 Delivery O2 Flow Rate FiO2 01/26/17 08:30 Room Air 01/26/17 08:29 71 137/63 01/26/17 05:29 99.5 20 93 I&O- Last 24 Hours up to 6 AM 01/26/17 05:59 Intake Total 1080 ml Output Total 1050 ml Balance 30 ml Laboratory Data 24H LABS Laboratory Tests 2 01/26/17 06:00: White Blood Count 4.4, Red Blood Count 2.56L, Hemoglobin 8.0L, Hematocrit 23.8L , Mean Corpuscular Volume 93.0, Mean Corpuscular Hemoglobin 31.2, Mean Corpuscular Hemoglobin Concent 33.5, Red Cell Distribution Width 16.5H, Platelet Count 45L, Neutrophils (%) (Auto) 59.4, Lymphocytes (%) (Auto) 12.7L, Monocytes (%) (Auto) 12.9H, Eosinophils (%) (Auto) 9.1H, Basophils (%) (Auto) 0.6, Neutrophils # (Auto) 2.6, Lymphocytes # (Auto) 0.6L, Monocytes # (Auto) 0.6 , Eosinophils # (Auto) 0.4, Basophils # (Auto) 0.0, Large Unclassified Cells % 5.4H, Large Unclassified Cells # 0.2, Anion Gap 5L, Glomerular Filtration Rate 39.2L, Blood Urea Nitrogen 16#, Creatinine 1.82H, Sodium Level 144, Potassium Level 3.9, Chloride Level 107, Carbon Dioxide Level 32, Calcium Level 8.5L, Phosphorus Level 1.9L, Magnesium Level 1.7L CBC/BMP Laboratory Tests 01/26/17 06:00 Red Blood Count 2.56 L, Mean Corpuscular Volume 93.0, Mean Corpuscular Hemoglobin 31.2, Mean Corpuscular Hemoglobin Concent 33.5, Red Cell Distribution Width 16.5 H, Neutrophils (%) (Auto) 59.4, Lymphocytes (%) (Auto) 12.7 L, Monocytes (%) (Auto) 12.9 H, Eosinophils (%) (Auto) 9.1 H, Basophils (% ) (Auto) 0.6, Neutrophils # (Auto) 2.6, Lymphocytes # (Auto) 0.6 L, Monocytes # (Auto) 0.6, Eosinophils # (Auto) 0.4, Basophils # (Auto) 0.0, Calcium Level 8.5 L Microbiology Microbiology 01/22/17 Stool Occult Blood (TUCKER) - Final, Complete ANTONIETA WINTERS Jan 26, 2017 13:45
[2017-01-26 14:00] VITALS: BP 154/70
[2017-01-26] MEDS: MIRALAX *UNIT DOSE* 17GM PACKET PO PRN (15:08)
[2017-01-26 19:59] VITALS: BP 136/64
[2017-01-26] MEDS: ACETAMINOPHEN TAB 650MG DOSE (2X325MG) PO PRN (20:03)
[2017-01-26] MEDS: DOCUSATE SODIUM 100 MG CAP PO SCH (20:04)
[2017-01-26] MEDS: TERAZOSIN 1 MG CAP PO SCH (20:04)
[2017-01-26] MEDS: SIMVASTATIN 20 MG TAB PO SCH (20:04)
[2017-01-27 05:20] VITALS: BP 172/74
[2017-01-27 05:52] LABS: BASO % 0.3 % (0.0-1.0); EOS # 0.4 K/mm3 (0.0-0.50); EOS % 8.4 % (0.0-3.0); LARGE UNSTAINED CELL # 0.1 K/mm3 (0.0-0.4); LARGE UNSTAINED CELL % 2.9 % (0.0-4.0); LYMPH # 0.7 K/mm3 (1.5-4.5); LYMPH % 11.3 % (24.0-44.0); MEAN CORPUSCULAR HEMOGLOBIN 31.1 pg (27.0-33.0); MEAN CORPUSCULAR HGB CONC 33.7 g/dl (32.0-36.5); MEAN CORPUSCULAR VOLUME 92.3 fl (80.0-96.0); MONO # 0.5 K/mm3 (0.0-0.8); MONO % 10.7 % (0.0-5.0); NEUTROPHILS # 3.1 K/mm3 (1.8-7.7); NEUTROPHILS % 66.5 % (36.0-66.0); RED CELL DISTRIBUTION WIDTH 16.9 % (11.5-14.5); WHITE BLOOD COUNT 4.7 K/mm3 (4.0-10.0)
[2017-01-27 05:53] LABS: PLATELET COUNT, AUTOMATED 68 k/mm3 (150-450)
[2017-01-27 06:01] LABS: CALCIUM LEVEL 8.2 MG/DL (8.8-10.2); CREATININE FOR GFR 1.88 MG/DL (0.70-1.30); GLOMERULAR FILTRATION RATE 37.7 (>42); MAGNESIUM LEVEL 1.6 MG/DL (1.8-2.4)
[2017-01-27 06:06] LABS: POTASSIUM SERUM 3.6 MEQ/L (3.5-5.1)
[2017-01-27] MEDS: DOCUSATE SODIUM 100 MG CAP PO SCH ×3 (06:36→21:16)
[2017-01-27] MEDS: CARVedilol 12.5 MG TAB PO SCH ×2 (06:36→21:12)
[2017-01-27] MEDS: amLODIPine 10 MG TAB PO SCH (06:36)
[2017-01-27] MEDS: PANTOPRAZOLE 40MG TAB (PROTONIX) PO SCH (06:37)
[2017-01-27] MEDS: ADVAIR HFA 115/21MCG INHALER INH SCH ×2 (07:41→19:58)
--- NOTE | 2017-01-27 09:55 | IPN ---
DATE: 01/26/2017 SUBJECTIVE: Patient was seen and examined at the bedside today morning. He reports that he feels much better. He got a third session of hemodialysis yesterday. He tolerated the hemodialysis procedure well. REVIEW OF SYSTEMS: Patient denies any fevers, chills, rigors, headache, nausea, vomiting, chest pain, shortness of breath, pain in abdomen, constipation or diarrhea. Rest of review of system is negative. OBJECTIVE: VITAL SIGNS: Temperature 99.5 degrees Fahrenheit, blood pressure is 137/63, pulse is 71, respiratory rate of 20, saturating 93% on room air. INTAKE AND OUTPUT: Urine output recorded as 850 mL yesterday, 100 mL so far today since overnight. Ultrafiltration with hemodialysis was about 500 mL yesterday. Weight on the bed scale is 89.2 kg, which is stable. PHYSICAL EXAMINATION: GENERAL: Patient is awake, alert, oriented times three, lying in bed, no apparent distress. HEAD AND NECK EXAM: Extraocular muscles intact. Pupils equally round and reactive to light. Mucous membranes are moist. NECK: Supple. There is no jugular venous distention (JVD). CARDIOVASCULAR: S1, S2. Regular rate. No murmur, rub or gallop. RESPIRATORY: Chest is clear to auscultation bilaterally. Bilateral equal air entry. No rales or rhonchi. ABDOMEN: Soft. Positive bowel sounds. Nontender. No ascites. No organomegaly. EXTREMITIES: No clubbing or cyanosis. Trace edema of the bilateral lower extremities. Pulses are 2+. CENTRAL NERVOUS SYSTEM: No focal neurological deficit. Power is 5/5 in all extremities. PSYCH: Normal mood and affect. LAB REVIEW: CBC showed WBC of 4.4, hemoglobin 8, platelets are 45. BMP showed sodium 144, potassium 3.9, chloride 107, bicarbonate 32, BUN 16, creatinine 1.8. Calcium 8.5, phosphorus 1.9, magnesium 1.7. CURRENT INPATIENT MEDICATIONS: Patient's medications were all reviewed by me. There is no change in the medications today as compared with yesterday. ASSESSMENT: 71-year-old male with chronic kidney disease stage 5 with progress to end stage renal disease and dependent upon dialysis now. PLAN: 1. End stage renal disease. Patient was started on hemodialysis during this admission. The patient needs placement as outpatient for hemodialysis. He is preferring Friday, Friday, and Friday schedule. Documentation was sent before the weekend on Friday. I shall get in touch with the dialysis center tomorrow morning for his placement. 2. Pancytopenia. The patient's hemoglobin is still suboptimal. If his hemoglobin is below 8 again, he would get a packed red blood cell transfusion. I have started him on Aranesp 200 mcg IV with hemodialysis. 3. Hypertension. Blood pressure is acceptable at this time. Continue current dose of amlodipine 10 mg daily, Coreg 12.5 mg by mouth twice daily, and terazosin 2 mg daily at bedtime. DISCHARGE PLANNING: Patient is pending placement as an outpatient at hemodialysis center. As soon as he gets a chair outpatient, he should be able to be discharged from the hospital. I shall continue to dialyze him three times a week in the meantime.
--- NOTE | 2017-01-27 11:31 | IPNPDOC ---
Date Seen The patient was seen on 01/27/17. Progress Note Hospitalist Progress Note Subjective: Patient reports some nausea and abd discomfort; still has not had a BM Objective: Physical Exam: Vitals: Vital Sign - Last 24 Hours 01/26/17 01/26/17 01/26/17 01/26/17 14:00 19:59 20:04 20:05 Temp 98.5 100.0 Pulse 66 76 76 Resp 18 20 B/P (MAP) 154/70 (98) 136/64 (88) 136/64 136/64 Pulse Ox 97 96 O2 Delivery Room Air 01/26/17 01/26/17 01/27/17 01/27/17 20:09 21:38 05:20 06:36 Temp 98.9 98.9 Pulse 73 75 Resp 20 B/P (MAP) 172/74 (106) 144/73 Pulse Ox 97 O2 Delivery Room Air Room Air General: Alert, oriented, no acute distress HEENT: Normocephalic, atraumatic, moist mucous membranes CV:. Regular rate and rhythm Lungs: Clear to auscultation bilaterally Abd: soft, Nontender, BS present Extremities: 2+ edema Neuro: Alert and oriented 3, normal speech Psych: normal mood and affect Labs and Imaging: Laboratory Tests 01/27/17 05:32 Red Blood Count 2.70 L, Mean Corpuscular Volume 92.3, Mean Corpuscular Hemoglobin 31.1, Mean Corpuscular Hemoglobin Concent 33.7, Red Cell Distribution Width 16.9 H, Neutrophils (%) (Auto) 66.5 H, Lymphocytes (%) (Auto ) 11.3 L, Monocytes (%) (Auto) 10.7 H, Eosinophils (%) (Auto) 8.4 H, Basophils ( %) (Auto) 0.3, Neutrophils # (Auto) 3.1, Lymphocytes # (Auto) 0.7 L, Monocytes # (Auto) 0.5, Eosinophils # (Auto) 0.4, Basophils # (Auto) 0.0, Calcium Level 8.2 L Assessment and Plan: 71-year-old male with chronic kidney disease which has now progressed to end- stage renal disease, chronic pancytopenia, A. fib, hyperlipidemia, asthma, hypertension, gout, BPH, CAD status post CABG and porcine aortic valve replacement who was sent to the emergency department by his hurricane tracker for worsening of his kidney disease and initiation of dialysis. 1. Chronic kidney disease which has progressed to end-stage renal disease: Dialysis has been initiated, and the patient is feeling much better. We appreciate nephrology's management of this. We are working with case management to arrange an outpatient dialysis chair 2. Chronic pancytopenia: This is been worked up extensively by his other physicians. He is currently at baseline. 3. A. fib: This is currently rate controlled. He is not anticoagulated secondary to his chronic anemia and chronic thrombocytopenia. 4. CAD status post CABG and porcine aortic valve replacement, hyperlipidemia: Continue home statin and beta rebecca. Patient is not on aspirin given his chronic pancytopenia. 5. Asthma: Currently stable. Continue home Advair and as needed DuoNeb's. 6. Hypertension: Continue home Norvasc and beta rebecca. 7. BPH: Continue home Hytrin. 8. Abd discomfort: Likely secondary to constipation as abd is soft and nontender. Continue colace and miralax; will also offer patient an enema after dialysis. DVT prophylaxis: SCDs Dispo: pending arrangements with case management for an outpatient dialysis chair VS, I&O, 24H, [facility] Vital Signs/I&O Vital Signs Date Time Temp Pulse Resp B/P (MAP) Pulse Ox O2 Delivery O2 Flow Rate FiO2 01/27/17 06:36 75 144/73 01/27/17 05:20 98.9 20 97 Room Air I&O- Last 24 Hours up to 6 AM 01/27/17 06:00 Intake Total 840 ml Output Total 75 ml Balance 765 ml Laboratory Data 24H LABS Laboratory Tests 2 01/27/17 05:32: White Blood Count 4.7, Red Blood Count 2.70L, Hemoglobin 8.4L, Hematocrit 24.9L , Mean Corpuscular Volume 92.3, Mean Corpuscular Hemoglobin 31.1, Mean Corpuscular Hemoglobin Concent 33.7, Red Cell Distribution Width 16.9H, Platelet Count 68L, Neutrophils (%) (Auto) 66.5H, Lymphocytes (%) (Auto) 11.3L, Monocytes (%) (Auto) 10.7H, Eosinophils (%) (Auto) 8.4H, Basophils (%) (Auto) 0.3, Neutrophils # (Auto) 3.1, Lymphocytes # (Auto) 0.7L, Monocytes # (Auto) 0.5 , Eosinophils # (Auto) 0.4, Basophils # (Auto) 0.0, Large Unclassified Cells % 2.9, Large Unclassified Cells # 0.1, Anion Gap 7L, Glomerular Filtration Rate 37.7L, Blood Urea Nitrogen 18, Creatinine 1.88H, Sodium Level 133#L, Potassium Level 3.6, Chloride Level 99, Carbon Dioxide Level 27, Calcium Level 8.2L, Magnesium Level 1.6L CBC/BMP Laboratory Tests 01/27/17 05:32 Red Blood Count 2.70 L, Mean Corpuscular Volume 92.3, Mean Corpuscular Hemoglobin 31.1, Mean Corpuscular Hemoglobin Concent 33.7, Red Cell Distribution Width 16.9 H, Neutrophils (%) (Auto) 66.5 H, Lymphocytes (%) (Auto ) 11.3 L, Monocytes (%) (Auto) 10.7 H, Eosinophils (%) (Auto) 8.4 H, Basophils ( %) (Auto) 0.3, Neutrophils # (Auto) 3.1, Lymphocytes # (Auto) 0.7 L, Monocytes # (Auto) 0.5, Eosinophils # (Auto) 0.4, Basophils # (Auto) 0.0, Calcium Level 8.2 L Microbiology Microbiology 01/22/17 Stool Occult Blood (TUCKER) - Final, Complete ANTONIETA WINTERS Jan 27, 2017 11:31
[2017-01-27] MEDS: MIRALAX *UNIT DOSE* 17GM PACKET PO PRN (11:40)
[2017-01-27 14:00] VITALS: BP 141/63
--- NOTE | 2017-01-27 17:22 | IPN ---
DATE: 01/27/2017 SUBJECTIVE: Patient was seen and examined at the bedside today morning. He was actually sitting in the sofa. He feels much better. The only complaint he has is that he is constipated at this time. Patient still remains oliguric. REVIEW OF SYSTEMS: Patient denies any fevers, chills, rigors, headache, nausea, vomiting, chest pain, shortness of breath, pain in abdomen. He does report constipation and decreased urine output. He denies any lower extremity edema. Rest of review of systems is negative. OBJECTIVE: VITAL SIGNS: Temperature 98.9 degrees Fahrenheit, blood pressure is 172/74, pulse is 73, respiratory rate of 20, saturating 97% on room air. INTAKE and OUTPUT: Urine output recorded is 175 mL yesterday and there is no urine output recorded overnight since last night. Weight in the bed scale is 84.7 kg. PHYSICAL EXAMINATION: GENERAL: Patient is awake, alert, oriented times three, sitting on the sofa, no apparent distress. HEAD and NECK EXAM: Extraocular muscles intact. Pupils equally round and reactive to light. Mucous membranes are moist. NECK: Supple. There is no jugular venous distention (JVD). CARDIOVASCULAR: S1, S2. Regular rate. No murmur, rub or gallop. RESPIRATORY: Chest is clear to auscultation bilaterally. Bilateral equal air entry. No rales or rhonchi. ABDOMEN: Soft. Positive bowel sounds. Nontender. No ascites. No organomegaly. EXTREMITIES: No clubbing or cyanosis. No edema of the bilateral lower extremities. Pulses are 2+. CENTRAL NERVOUS SYSTEM: No focal neurological deficit. Power is 5/5 in all extremities. PSYCHIATRIC: Normal mood and affect. LABORATORY REVIEW: CBC showed WBC of 4.7, hemoglobin 8.4, platelets are 68. BMP showed sodium 133, potassium 3.6, chloride 99, bicarbonate 27, BUN 18, creatinine is 1.8, it was 1.8 yesterday as well, calcium 8.2, magnesium is 1.6. CURRENT INPATIENT MEDICATIONS: Patient's medications were all reviewed by me. I have stopped patient's Protonix now. There is no other change in the medications. ASSESSMENT: 71-year-old male with chronic kidney disease stage V which has progressed to end-stage renal disease requiring hemodialysis during this admission. PLAN: 1. End-stage renal disease. Patient is hemodialysis dependent at this time. Continue the inpatient hemodialysis. Patient prefers Friday, Friday, Friday schedule, however he was dialyzed last time on 01/25/2017. There is no urgent need of hemodialysis today. He will be dialyzed tomorrow. Once we get his outpatient hemodialysis chair, we shall start dialyzing him according to his schedule. 2. Pancytopenia. Patient's leukopenia has improved. His hemoglobin is slowing coming up, it is 8.4 today. There is no urgent need of a blood transfusion. He has already been started on Aranesp 200 mcg IV with hemodialysis once a week. I have stopped the Protonix which can sometimes cause thrombocytopenia. 3. Hypertension. Blood pressure is acceptable at this time. Continue current dose of amlodipine 10 mg daily, Coreg 12.5 mg by mouth twice daily, and terazosin 2 mg daily. 4. Constipation. Patient is in renal failure. Avoid Fleet enema. It is okay to give soap suds enema or tap water enema to this patient.
[2017-01-27] MEDS: TERAZOSIN 1 MG CAP PO SCH (21:12)
[2017-01-27] MEDS: SIMVASTATIN 20 MG TAB PO SCH (21:12)
[2017-01-27 22:00] VITALS: BP 140/65
[2017-01-28 06:00] VITALS: BP 164/75
[2017-01-28 06:41] LABS: BASO % 0.6 % (0.0-1.0); EOS # 0.4 K/mm3 (0.0-0.50); EOS % 6.3 % (0.0-3.0); LARGE UNSTAINED CELL # 0.3 K/mm3 (0.0-0.4); LARGE UNSTAINED CELL % 4.6 % (0.0-4.0); LYMPH # 0.6 K/mm3 (1.5-4.5); LYMPH % 9.2 % (24.0-44.0); MEAN CORPUSCULAR HEMOGLOBIN 30.6 pg (27.0-33.0); MEAN CORPUSCULAR HGB CONC 33.2 g/dl (32.0-36.5); MONO # 0.6 K/mm3 (0.0-0.8); MONO % 9.5 % (0.0-5.0); NEUTROPHILS # 4.3 K/mm3 (1.8-7.7); NEUTROPHILS % 69.8 % (36.0-66.0); RED CELL DISTRIBUTION WIDTH 16.9 % (11.5-14.5); WHITE BLOOD COUNT 6.2 K/mm3 (4.0-10.0)
[2017-01-28 06:42] LABS: PLATELET COUNT, AUTOMATED 83 k/mm3 (150-450)
[2017-01-28] MEDS: ADVAIR HFA 115/21MCG INHALER INH SCH ×2 (06:55→19:40)
[2017-01-28] MEDS: CARVedilol 12.5 MG TAB PO SCH ×2 (06:57→20:42)
[2017-01-28] MEDS: DOCUSATE SODIUM 100 MG CAP PO SCH ×2 (06:57→20:42)
[2017-01-28] MEDS: amLODIPine 10 MG TAB PO SCH (06:57)
[2017-01-28 07:38] LABS: CALCIUM LEVEL 8.2 MG/DL (8.8-10.2); CREATININE FOR GFR 1.88 MG/DL (0.70-1.30); GLOMERULAR FILTRATION RATE 37.7 (>42); MAGNESIUM LEVEL 1.5 MG/DL (1.8-2.4); POTASSIUM SERUM 3.9 MEQ/L (3.5-5.1)
[2017-01-28] MEDS ORDERED: MAG SULF 1GM/100ML (MAG RUN) 1 GM in APPROPRIATE DILUENT 1 EA IV ONE (10:00)
[2017-01-28] MEDS: MAGNESIUM OXIDE 400 MG TAB (MAG-OX) PO SCH ×2 (12:35→20:39)
--- NOTE | 2017-01-28 12:48 | IPN ---
DATE OF SERVICE: 01/28/2017 SUBJECTIVE: The patient was seen and examined at the bedside today morning during hemodialysis procedure. He was tolerating the hemodialysis procedure well. He does not have any active complaints. REVIEW OF SYSTEMS: The patient denies any fevers, chills, rigors, headache, nausea, vomiting, chest pain. He does report that his asthma is acting up, and he is complaining of some shortness of breath. He denies any pain abdomen, constipation, or diarrhea. Rest of review of systems is negative. OBJECTIVE: VITAL SIGNS: Temperature is 99.6 degrees Fahrenheit, blood pressure is 164/75, pulse is 75, respiratory rate of 18, saturating 92% on room air. INTAKE and OUTPUT: The patient's urine output is not recorded well at this time. Weight in the bed scale is 88.1 kg, which is not reliable either because his weight recorded yesterday was 84 kg. PHYSICAL EXAMINATION: GENERAL: The patient is awake, alert, oriented times three, lying in bed, no apparent distress. HEAD AND NECK EXAMINATION: Extraocular muscles intact. Pupils equally round and reactive to light. Mucous membranes are moist. NECK: Supple. There is no jugular venous distention (JVD). CARDIOVASCULAR: S1, S2. Regular rate. No murmur, rub, and gallop. RESPIRATORY: Chest is clear to auscultation bilaterally. Bilateral equal air entry. No rales or rhonchi. ABDOMEN: Soft. Positive bowel sounds. Nontender. No ascites. No organomegaly. EXTREMITIES: No clubbing or cyanosis. Trace edema of the bilateral lower extremities. Pulses are 2+. CENTRAL NERVOUS SYSTEM: No focal neurological deficit. Power is 5/5 in all extremities. PSYCHIATRIC: Normal mood and affect. AV ACCESS: The patient has a right internal jugular (IJ) tunneled hemodialysis catheter. LABORATORY REVIEW: CBC showed a WBC of 6.2, hemoglobin 8.2, platelets are 83. BMP showed sodium 135, potassium 3.9, chloride 100, bicarbonate 26, BUN 19, creatinine is 1.8, it was 1.8 yesterday as well, GFR is 37.7, calcium 8.2, magnesium is 1.5. CURRENT INPATIENT MEDICATIONS: The patient's medications were all reviewed by me. Magnesium sulfate 1 gram intravenous (IV) run was ordered, but it was not given because the patient does not have an IV access at this time. I have started the patient on magnesium oxide 800 mg by mouth twice a day times three doses. ASSESSMENT: A 71-year-old male with past medical history of chronic kidney disease stage IV admitted this time because of acute kidney injury requiring hemodialysis. PLAN: 1. Acute oliguric renal failure superimposed on chronic kidney disease stage IV requiring hemodialysis. The patient was being dialyzed today morning. However, looking at the patient's creatinine trend from the last 3 days, it is stable at 1.8, so I stopped the hemodialysis after about an hour of procedure. I am going to monitor the patient's urine output strictly 24 hourly, and I am going to collect the 24-hour urine, as well, for creatinine clearance. I believe the patient's renal function might be improving at this time. Hold further hemodialysis at this time. 2. Pancytopenia. The patient's pancytopenia is also improving. His white cell count is 6.2. His hemoglobin is still low at 8.2. If it drops further, he might need a unit of packed red blood cells (PRBC) transfusion. His platelet count is slowing coming up, it is 83 right now. 3. Hypertension. Blood pressure is acceptable at this time. Continue current dose of amlodipine 10 mg daily, Coreg 12.5 mg by mouth twice a day, and terazosin 2 mg by mouth daily, as well. DISCHARGE PLANNING: I would hold off on the outpatient hemodialysis placement in this patient because I believe the renal function is improving. I would monitor the patient for another 24 hours, check his creatinine tomorrow, check his 24-hour urine creatinine clearance; and if his renal function stays stable, he would probably be discharged and followup in nephrology as outpatient. The plan of care was discussed with the hospitalist team, Dr. Deborah Briceño, and with the patient's registered nurse (RN) today morning.
[2017-01-28 14:00] VITALS: BP 166/74
--- NOTE | 2017-01-28 16:14 | IPNPDOC ---
Date Seen The patient was seen on 01/28/17. Progress Note SUBJECTIVE: Patient feels well she denies any complaints at this time OBJECTIVE PHYSICAL EXAMINATION: VITAL SIGNS: Please see below. GENERAL: Obese elderly man up ambulating around her room is accompanied by his son-in-law his and his [id number] he does not appear to be in any acute distress whatsoever HEENT: Ligamentum rectal light he has moist mucous membranes CARDIOVASCULAR: S1-S2 regular. RESPIRATORY:. Auscultation he has a dialysis catheter in his right thorax. ABDOMINAL: Obese bowel sounds present abdomen soft EXTREMITIES: Trace edema bilaterally LABORATORY DATA: Please see below. MICROBIOLOGY: Please see below. IMAGING: No new imaging DVT prophylaxis ordered?: Sequentials teds early ambulation no pharmacological agents secondary to thrombocytopenia ASSESSMENT AND PLAN: This is a 71-year-old man with chronic kidney disease currently requiring hemodialysis. 1. Acute oliguric renal failure on Chronic kidney disease nephrology's help is greatly appreciated he did receive 1 hour of hemodialysis today however it was stopped noticing that his creatinine has remained relatively stable and he is having urine output. We'll monitor his urine creatinine for 24 hours and his renal function is improving may be able to hold hemodialysis at this time and continue arranging outpatient dialysis chair in the outpatient setting. 2. Chronic pancytopenia: Stable continue to monitor for now the patient is on Aranesp as well 3. A. fib: This is currently rate controlled. He is not anticoagulated secondary to his chronic anemia and chronic thrombocytopenia. Appears quite regular on exam today 4. CAD status post CABG and porcine aortic valve replacement, hyperlipidemia: Continue home statin and beta rebecca. Patient is not on aspirin given his chronic pancytopenia. 5. Asthma: Currently stable. Continue home Advair and as needed DuoNeb's. He is at his baseline respiratory status 6. Hypertension: Continue home Norvasc and beta rebecca. 7. BPH: Continue home Hytrin. 8. Abdominal discomfort: Resolved secondary to constipation DISPOSITION: Pending evaluation of his urine he may require an outpatient hemanalysis he prior to leaving versus being arranged in the outpatient setting will continue to follow closely. VS, I&O, 24H, [facility] Vital Signs/I&O Vital Signs Date Time Temp Pulse Resp B/P (MAP) Pulse Ox O2 Delivery O2 Flow Rate FiO2 01/28/17 15:00 99.1 01/28/17 14:00 84 16 166/74 (104) 94 Room Air I&O- Last 24 Hours up to 6 AM 01/28/17 06:00 Intake Total 840 ml Output Total 0 ml Balance 840 ml Laboratory Data 24H LABS Laboratory Tests 2 01/28/17 06:27: White Blood Count 6.2, Red Blood Count 2.68L, Hemoglobin 8.2L, Hematocrit 24.7L , Mean Corpuscular Volume 92.0, Mean Corpuscular Hemoglobin 30.6, Mean Corpuscular Hemoglobin Concent 33.2, Red Cell Distribution Width 16.9H, Platelet Count 83L, Neutrophils (%) (Auto) 69.8H, Lymphocytes (%) (Auto) 9.2L, Monocytes (%) (Auto) 9.5H, Eosinophils (%) (Auto) 6.3H, Basophils (%) (Auto) 0.6 , Neutrophils # (Auto) 4.3, Lymphocytes # (Auto) 0.6L, Monocytes # (Auto) 0.6, Eosinophils # (Auto) 0.4, Basophils # (Auto) 0.0, Large Unclassified Cells % 4.6H, Large Unclassified Cells # 0.3, Anion Gap 9, Glomerular Filtration Rate 37.7L, Blood Urea Nitrogen 19H, Creatinine 1.88H, Sodium Level 135L, Potassium Level 3.9, Chloride Level 100, Carbon Dioxide Level 26, Calcium Level 8.2L, Magnesium Level 1.5L CBC/BMP Laboratory Tests 01/28/17 06:27 Red Blood Count 2.68 L, Mean Corpuscular Volume 92.0, Mean Corpuscular Hemoglobin 30.6, Mean Corpuscular Hemoglobin Concent 33.2, Red Cell Distribution Width 16.9 H, Neutrophils (%) (Auto) 69.8 H, Lymphocytes (%) (Auto ) 9.2 L, Monocytes (%) (Auto) 9.5 H, Eosinophils (%) (Auto) 6.3 H, Basophils (% ) (Auto) 0.6, Neutrophils # (Auto) 4.3, Lymphocytes # (Auto) 0.6 L, Monocytes # (Auto) 0.6, Eosinophils # (Auto) 0.4, Basophils # (Auto) 0.0, Calcium Level 8.2 L Microbiology Microbiology 01/22/17 Stool Occult Blood (TUCKER) - Final, Complete BRITTANY REEVES MD Jan 28, 2017 16:14
[2017-01-28 20:00] VITALS: BP 165/72
[2017-01-28] MEDS: SIMVASTATIN 20 MG TAB PO SCH (20:38)
[2017-01-28] MEDS: TERAZOSIN 1 MG CAP PO SCH (20:42)
[2017-01-28] MEDS: ACETAMINOPHEN TAB 650MG DOSE (2X325MG) PO PRN (20:44)
[2017-01-28 22:00] VITALS: BP 165/72
[2017-01-29 06:00] VITALS: BP 147/65
[2017-01-29 06:11] LABS: BASO % 0.3 % (0.0-1.0); EOS # 0.3 K/mm3 (0.0-0.50); EOS % 6.1 % (0.0-3.0); LARGE UNSTAINED CELL # 0.2 K/mm3 (0.0-0.4); LARGE UNSTAINED CELL % 3.8 % (0.0-4.0); LYMPH # 0.7 K/mm3 (1.5-4.5); LYMPH % 9.9 % (24.0-44.0); MEAN CORPUSCULAR HEMOGLOBIN 30.9 pg (27.0-33.0); MEAN CORPUSCULAR HGB CONC 33.1 g/dl (32.0-36.5); MEAN CORPUSCULAR VOLUME 93.5 fl (80.0-96.0); MONO # 0.5 K/mm3 (0.0-0.8); MONO % 10.8 % (0.0-5.0); NEUTROPHILS # 3.4 K/mm3 (1.8-7.7); NEUTROPHILS % 69.1 % (36.0-66.0); RED CELL DISTRIBUTION WIDTH 17.6 % (11.5-14.5)
[2017-01-29 06:15] LABS: PLATELET COUNT, AUTOMATED 81 k/mm3 (150-450)
[2017-01-29 06:33] LABS: CALCIUM LEVEL 8.4 MG/DL (8.8-10.2); CREATININE FOR GFR 1.75 MG/DL (0.70-1.30); MAGNESIUM LEVEL 1.7 MG/DL (1.8-2.4); POTASSIUM SERUM 3.5 MEQ/L (3.5-5.1)
[2017-01-29] MEDS: ADVAIR HFA 115/21MCG INHALER INH SCH (07:35)
[2017-01-29] MEDS ORDERED: MAGNESIUM OXIDE 400 MG TAB (MAG-OX) PO SCH (09:00)
[2017-01-29] MEDS: DOCUSATE SODIUM 100 MG CAP PO SCH (09:00)
[2017-01-29] MEDS ORDERED: TORSEMIDE 20 MG TAB PO SCH (09:00)
[2017-01-29 09:40] VITALS: BP 140/80
[2017-01-29] MEDS: amLODIPine 10 MG TAB PO SCH (09:40)
[2017-01-29] MEDS: MAGNESIUM OXIDE 400 MG TAB (MAG-OX) PO SCH (09:40)
[2017-01-29] MEDS: CARVedilol 12.5 MG TAB PO SCH (09:41)
[2017-01-29 11:59] LABS: CREATININE, SERUM 1.8 MG/DL (0.6-1.3)
[2017-01-29 12:13] LABS: CREATININE CLEARANCE, URINE 49.5 ML/MIN (85-125)
[2017-01-29] MEDS ORDERED: MAG SULF 1GM/100ML (MAG RUN) 1 GM in APPROPRIATE DILUENT 1 EA IV ONE (13:30)
[2017-01-29 14:00] VITALS: BP 150/78
[2017-01-29] MEDS ORDERED: DEMA20TA6 PO (14:41)
[2017-01-30] MEDS ORDERED: MAGNESIUM OXIDE 400 MG TAB (MAG-OX) PO SCH (09:00)
--- NOTE | 2017-01-30 09:11 | IPN ---
DATE: 01/29/2017 SUBJECTIVE: The patient was seen and examined at the bedside today morning. He is still collecting a 24 hour urine. He only got one of hour of hemodialysis yesterday because his creatine trend was found to be stable. The patient's renal function is stable. He has made more than a liter of urine so far in the last 24 hours. His creatine is stable, actually slightly better than yesterday, just down to 1.7. REVIEW OF SYSTEMS: The patient denied any fevers, chills, rigors, headache, nausea, vomiting, chest pain, shortness of breath, pain in the abdomen, constipation or diarrhea. He does report lower extremity edema. The rest of the review of systems is negative. OBJECTIVE: VITAL SIGNS: Temperature is 98.9 degrees Fahrenheit, blood pressure is 147/65, pulse is 68, respiratory rate of 20, saturating 96% on room air. Intake and output: Urine output recorded as 725 mL yesterday, 475 mL so far today since overnight. Ultrafiltration with hemodialysis was 500 mL yesterday. Weight in the bed scale is 93 kg which is not reliable. PHYSICAL EXAMINATION: GENERAL: The patient is awake, alert, oriented times three, sitting in the bed in no apparent distress. HEAD AND NECK EXAM: Extraocular muscles intact. Pupils equally round and reactive to light. Mucous membranes are moist. NECK: Supple. There is no jugular venous distension (JVD). CARDIOVASCULAR: S1, S2 regular rate, no murmur, rub or gallop. RESPIRATORY: Chest is clear to auscultation bilaterally. Bilateral equal air entry. No rales or rhonchi. ABDOMEN: Soft, positive bowel sounds. Nontender. No ascites. No organomegaly. EXTREMITIES: No clubbing or cyanosis. About 1+ edema of the bilateral lower extremities. Pulses are 2+. CENTRAL NERVOUS SYSTEM: No focal neurological deficit. Power is 5/5 in all extremities. PSYCHIATRIC: Normal mood and affect. IV ACCESS: The patient has a right internal jugular vein tunnel hemodialysis catheter. LABORATORY REVIEW: Complete blood count (CBC) showed white blood count (WBC) of 5, hemoglobin is 8, platelets are 81. Basic metabolic panel (BMP) showed sodium 129, potassium 3.5, chloride 95, bicarbonate is 27, BUN is 17, creatine is 1.7, calcium 8.4, magnesium is 1.7. CURRENT INPATIENT MEDICATIONS: The patient's medications are all reviewed by me. He has been started on magnesium oxide 400 mg by mouth daily and I started him on torsemide 40 mg by mouth daily. ASSESSMENT: 71-year-old male with past medical history of chronic kidney disease, stage IV, which progressed to end-stage renal disease and he was started on hemodialysis during this admission. However, he shows signs of improvement of renal function after three consecutive sessions of hemodialysis. PLAN: 1. Acute renal failure. The patient had acute oliguric renal failure. However, he is nonoliguric at this time. His creatine is stable. At this time, he is collecting 24 hours of urine for creatine clearance. I am holding the hemodialysis at this time. The patient will need to followup with nephrology service as an outpatient. 2. Anemia. The patient's hemoglobin is 8, which is acceptable at this time. No need of blood transfusion at this time. If needed, the patient will be treated for anemia as an outpatient with Procrit injections. Iron levels done during this admission showed normal iron stores. 3. Hypertension. Blood pressure is acceptable at this time. Continue current dose of amlodipine 10 mg by mouth daily, Coreg 12.5 mg by mouth twice a day, terazosin 2 mg daily, diuretic should also help lower blood pressure. 4. Lower extremity edema. The patient has about 1+ edema and he was oliguric initially. I have started the patient on torsemide 40 mg by mouth daily, diuretic dose will be adjusted as an outpatient as needed. 5. Hypomagnesemia. I have started the patient on magnesium oxide 400 mg by mouth daily. 6. Hyponatremia. It is most likely secondary to hypervolemia. Torsemide and diuresis will help improve hyponatremia. DISCHARGE PLANNING: It is okay to discharge the patient from nephrology standpoint today after collection of 24 hour urine. He will need to followup with Dr. Rebolledo earlier next week. He can keep the internal hemoglobin catheter for now. He will be evaluated as an outpatient for any need to continue the hemodialysis. Otherwise, his catheter will be removed as an outpatient. Plan of care was discussed with the hospitalist team, Dr. Deborah Briceño and with the patient's RN today morning.
--- NOTE | 2017-02-11 16:16 | DSES ---
DATE OF ADMISSION: 01/22/2017 DATE OF DISCHARGE: 01/29/2017 DISCHARGE DIAGNOSIS: Acute on chronic kidney disease. SECONDARY DIAGNOSES: 1. Chronic pancytopenia. 2. Atrial fibrillation. 3. Coronary artery disease. 4. Asthma. 5. Hypertension. 6. Benign prostatic hypertrophy (BPH). 7. Abdominal discomfort. CONSULTATIONS: 1. Dr. Caldwell, vascular surgery, for hemodialysis catheter placement. 2. Dr. Osuna, nephrology, for hemodialysis. HOSPITAL COURSE: The patient is a 71-year-old man who was admitted 01/22/2017, for abnormal laboratory results. He was found to have acute on chronic renal disease and felt to be progressed to end-stage renal disease. The patient had hemodialysis catheter placed by Dr. Caldwell. Nephrology did see the patient and he was started on hemodialysis. He was started on a renal diet. He was hyperkalemic without EKG changes at the time of presentation. He was admitted to the progressive care unit (PCU). The patient was started on hemodialysis and tolerated it quite well. We are arranging an outpatient hemodialysis seat for him. However, after being on dialysis for several visits, his renal function did progressively improve to the point where he began to make urine and he was able to go several days without hemodialysis. He did have a dialysis catheter placed. He was followed closely by nephrology service who felt that he was able to go home and avoid being on permanent hemodialysis at this time, but he will followup closely on the outpatient setting and determine if he should need permanent dialysis while monitoring his laboratories on the outpatient setting. SUBJECTIVE: Today, the patient reports that he feels well. He has no complaints and would like to go home. OBJECTIVE: VITAL SIGNS: Temperature 98.9, pulse 68, respiratory rate 20, blood pressure 147/65, oxygen saturation 96% on room air. GENERAL: He is a pleasant, elderly, obese, man up ambulating around his room in street clothes. He is in no distress. HEENT: No elevation of central venous pressure (CVP). NEUROLOGIC: Cranial nerves II-XII are grossly intact. CARDIOVASCULAR: S1, S2, irregularly irregular. RESPIRATORY: Clear. ABDOMEN: Grossly obese. He has a dialysis catheter in place. EXTREMITIES: No clubbing, cyanosis, or appreciable edema. LABORATORY STUDIES: WBC 5.0, hemoglobin 8.0, platelet count 81. Chemistry panel: Sodium 129, potassium 3.5, chloride 95, bicarbonate 27, BUN 17, creatinine 1.7, magnesium 1.7. Hepatitis panel is negative. Occult stool for blood was negative. ASSESSMENT AND PLAN: This is a 71-year-old man who has chronic kidney disease stage IV which progressed to end-stage renal disease. He was started on hemodialysis which has improved his renal function after three consecutive sessions. PROBLEM LIST: 1. Acute renal failure. The patient had oliguric renal failure. However, he is not oliguric at this time. Nephrology's help has been greatly appreciated. A 24-hour creatinine clearance obtained. He is to followup with nephrology service very closely on the outpatient setting. He will be discharged with a hemodialysis catheter in place for likely initiation of hemodialysis possibly in the near future. 2. Anemia, likely related to chronic kidney disease. He will receive Procrit injection on the outpatient setting. He had normal iron stores during this stay on blood work. 3. Hypertension. He is continued on Norvasc and Coreg as well as terazosin and diuretic with blood pressures well-controlled. 4. Lower extremity edema. He is being discharged on torsemide by mouth daily. It will be adjusted further by nephrology service on the outpatient setting. His volume status has improved following hemodialysis. 5. Hypomagnesemia. He has been started on magnesium supplementation. 6. Hyponatremia, likely related to hypervolemia. The patient has been started on torsemide. Again, he is being discharged with a dialysis catheter in place should he need further addressing of this. DISPOSITION: The patient is being discharged home to the care of his family. He is to followup with Dr. Rebolledo within one week, followup with his primary care provider (PCP) within seven days. His activity and diet are as prior to admission. He is to return to the emergency room (ER) if his symptoms worsen. MEDICATIONS AT THE TIME OF DISCHARGE: - torsemide 40 mg daily - Proventil HFA two puffs every six hours as needed for shortness of breath - DuoNebs inhaled four times daily as needed for shortness of breath - allopurinol 300 mg daily - Norvasc 10 mg daily - vitamin C 500 mg daily - carvedilol 12.5 mg twice a day - Protonix 40 mg daily - potassium chloride 20 mEq daily - Advair Diskus 250/50 one puff twice a day - simvastatin 20 mg at bedtime - tamsulosin 0.4 mg at bedtime - terazosin 2 mg at bedtime Greater than 30 minutes was spent organizing disposition.
== END 2017-01-29 16:55 | disposition home or self-care (01) | DRG 683 ==
LOC: M ED 15:51 → M ED INP 18:10 → M PCU 20:38 → M MSPAV 01-23 18:05
PROVIDERS: ADMIT Internal Medicine; ATTEND Internal Medicine
PROC: 02H633Z Insertion of Infusion Device into Right Atrium, Percutaneous Approach (ICD-10-PCS; principal; 2017-01-23)
PROC: 30253N1 (ICD-10-PCS; 2017-01-23)
PROC: 5A1D60Z (ICD-10-PCS; 2017-01-24)
DX: N17.9 Acute kidney failure, unspecified (principal); E87.2 Acidosis; I12.0 Hypertensive chronic kidney disease with stage 5 chronic kidney disease or end stage renal disease; D61.818 Other pancytopenia; E87.1 Hypo-osmolality and hyponatremia; N18.6 End stage renal disease; D63.1 Anemia in chronic kidney disease; E78.5 Hyperlipidemia, unspecified; E83.42 Hypomagnesemia; Z66 Do not resuscitate; K59.00 Constipation, unspecified; J45.909 Unspecified asthma, uncomplicated; E66.9 Obesity, unspecified; E87.5 Hyperkalemia; I48.2 Chronic atrial fibrillation; M10.9 Gout, unspecified; N40.0 Benign prostatic hyperplasia without lower urinary tract symptoms; Z95.3 Presence of xenogenic heart valve; Z95.1 Presence of aortocoronary bypass graft; Z91.013 Allergy to seafood; Z79.899 Other long term (current) drug therapy; Z95.0 Presence of cardiac pacemaker; Z68.31 Body mass index [BMI] 31.0-31.9, adult

== ENCOUNTER → 2017-02-05 | Outpatient (REF) | payer OTHER ==
[~2017-02-05] MED LIST: ADV250INH INH; ALBU17IN2 INH; ALLO100T PO; AMLO10TA2 PO; ASCO25TA PO; CARV12.5 PO; DEMA20TA6 PO; FLOM5CAP PO; FURO40TA2 PO; FURO8SOL PO; IPRASOL4 INH; PANT40TA2 PO; POTA20TA PO; PROVENTIL INH; SIMV20TA2 PO; SODI650T PO; TERA2CAP3 PO; ZYLO300T4 PO
[2017-02-05 17:59] LABS: PERCENT SATURATION 23.9 % (19.7-50.0)
== END ==
LOC: M LAB REF 16:52
PROVIDERS: ATTEND Internal Medicine Nephrology
DX: D50.9 Iron deficiency anemia, unspecified (principal)

== ENCOUNTER → 2017-02-10 | Outpatient (CLI) | payer OTHER ==
--- NOTE | 2017-02-10 12:59 | REP ---
PA and lateral chest for shortness of breath: Comparison is 01/22/2017. There has been interim placement of a dual lumen right IJ central venous catheter with tips at the confluence of the superior vena cava and right atrium in satisfactory location. There is no pneumothorax or pleural fluid collection. The left costophrenic angle is effaced, unchanged. This could represent a small left pleural effusion or pleural adhesion. The right costophrenic angle is open and sharp. There are no focal infiltrates. The interstitium is unremarkable. The cardiac size is normal. There are sternotomy wires and dual-chamber pacemaker, unchanged. The mat, mediastinum, and bony thorax are unchanged. Surgical clips are again noted in the right axilla. Impression: There is effacement of the left costophrenic angle, unchanged. This could be a pleural adhesion or small pleural effusion. The lung kovacs otherwise clear. Cardiac size is normal. There is a new right IJ central venous catheter. Pacemaker is again identified, unchanged. Sternotomy wires are again identified. Signed by Bakari Elizabeth MD 02/10/2017 12:50 P
== END ==
LOC: M SMT 11:41
PROVIDERS: ATTEND Internal Medicine Nephrology
DX: R06.02 Shortness of breath (principal); Z95.0 Presence of cardiac pacemaker

== ENCOUNTER → 2017-05-26 | Outpatient (REF) | payer OTHER ==
[2017-05-26 14:42] LABS: FREE T4 1.07 NG/DL (0.76-1.46)
== END ==
LOC: M LAB REF 13:30
PROVIDERS: ATTEND Internal Medicine Nephrology
DX: E03.9 Hypothyroidism, unspecified (principal)

== ENCOUNTER 2017-09-15 19:45 | Inpatient (IN) | payer OTHER ==
[~2017-09-15 19:45] MED LIST changes: +ACETAMINOPHEN TAB 650MG DOSE (2X325MG) PO; -ADV250INH INH; -ALBU17IN2 INH; -ALLO100T PO; -AMLO10TA2 PO; -ASCO25TA PO; -CARV12.5 PO; -DEMA20TA6 PO; -FLOM5CAP PO; -FURO40TA2 PO; -FURO8SOL PO; -IPRASOL4 INH; +ONDANSETRON 4MG/2ML VIAL (J2405) IV; -PANT40TA2 PO; -POTA20TA PO; -PROVENTIL INH; -SIMV20TA2 PO; -SODI650T PO; -TERA2CAP3 PO; -ZYLO300T4 PO
[2017-09-16] MEDS ORDERED: ONDANSETRON 4MG/2ML VIAL (J2405) IV ×2 (02:00→03:15)
[2017-09-16] MEDS: HEPARIN SOD (PORCINE) 5000 UNITS/ML VIAL SC ×3 (07:09→21:40)
[2017-09-16] MEDS: DOXAZOSIN MESYLATE 1 MG TAB PO (07:09)
[2017-09-16] MEDS: FERROUS GLUCONATE 324 MG TAB PO (07:10)
[2017-09-16] MEDS: NIFEdipine 60 MG XL TAB PO ×2 (07:10→21:40)
[2017-09-16] MEDS: CARVedilol 12.5 MG TAB PO ×2 (07:10→21:40)
[2017-09-16] MEDS: FUROSEMIDE 80 MG TAB PO (07:11)
[2017-09-16 07:44] LABS: BASO % 0.5 % (0.0-1.0); EOS % 0.2 % (0.0-3.0); HEMATOCRIT 30.1 % (42.0-52.0); HEMOGLOBIN 9.9 g/dl (14.0-18.0); IMMATURE GRANULOCYTE % 4.1 % (0-3.0); LYMPH # 1.3 10^3/uL (1.5-4.5); LYMPH % 19.1 % (24.0-44.0); MEAN CORPUSCULAR HEMOGLOBIN 30.7 pg (27.0-33.0); MEAN CORPUSCULAR HGB CONC 32.9 g/dl (32.0-36.5); MEAN CORPUSCULAR VOLUME 93.2 fl (80.0-96.0); MONO # 0.6 10^3/uL (0.0-0.8); MONO % 8.7 % (0.0-5.0); NEUTROPHILS # 4.4 10^3/uL (1.8-7.7); NEUTROPHILS % 67.4 % (36.0-66.0); PLATELET COUNT, AUTOMATED 125 10^3/uL (150-450); RED BLOOD COUNT 3.23 10^6/uL (4.30-6.10); WHITE BLOOD COUNT 6.6 10^3/uL (4.0-10.0)
[2017-09-16] MEDS: cloNIDine 0.2 MG TAB PO (07:46)
[2017-09-16] MEDS: amLODIPine 5 MG TAB PO (07:49)
[2017-09-16 07:53] LABS: INR 1.08; PROTHROMBIN TIME 14.2 SECONDS (12.4-14.5)
[2017-09-16 08:10] LABS: LACTIC ACID SEPSIS PROTOCOL 1.2 MMOL/L (0.4-2.0)
[2017-09-16 08:11] LABS: ALBUMIN 3.2 GM/DL (3.2-5.2); ALBUMIN/GLOBULIN RATIO 0.94 (1.00-1.93); ALKALINE PHOSPHATASE 86 U/L (45-117); ALT/SGPT 15 U/L (12-78); ANION GAP 11 MEQ/L (8-16); AST/SGOT 9 U/L (7-37); BILIRUBIN,TOTAL 0.6 MG/DL (0.2-1.0); BLOOD UREA NITROGEN 36 MG/DL (7-18); CALCIUM LEVEL 8.3 MG/DL (8.8-10.2); CARBON DIOXIDE LEVEL 29 MEQ/L (21-32); CHLORIDE LEVEL 95 MEQ/L (98-107); CPK CREATINE PHOSPHOKINASE 15 U/L (39-308); CREATININE FOR GFR 2.17 MG/DL (0.70-1.30); GLUCOSE, FASTING 68 MG/DL (70-100); MAGNESIUM LEVEL 1.4 MG/DL (1.8-2.4); MB/CK RELATIVE INDEX 6.66 (< OR =4); PHOSPHORUS LEVEL 3.4 MG/DL (2.5-4.9); POTASSIUM SERUM 3.6 MEQ/L (3.5-5.1); SODIUM LEVEL 135 MEQ/L (136-145); TOTAL PROTEIN 6.6 GM/DL (6.4-8.2); TROPONIN I < 0.02 NG/ML (< 0.10)
[2017-09-16] MEDS: MAG SULF 1GM/100ML (MAG RUN) 1 GM in APPROPRIATE DILUENT 1 EA IV (11:00)
[2017-09-16] MEDS: ADVAIR HFA 115/21MCG INHALER INH ×2 (12:05→20:38)
[2017-09-16] MEDS: cloNIDine 0.1 MG TAB PO ×2 (17:18→21:40)
[2017-09-16] MEDS: PRAVASTATIN 20 MG TAB PO (21:39)
[2017-09-17 06:56] LABS: HEMATOCRIT 33.5 % (42.0-52.0); HEMOGLOBIN 10.9 g/dl (14.0-18.0); MEAN CORPUSCULAR HEMOGLOBIN 30.2 pg (27.0-33.0); MEAN CORPUSCULAR HGB CONC 32.5 g/dl (32.0-36.5); MEAN CORPUSCULAR VOLUME 92.8 fl (80.0-96.0); PLATELET COUNT, AUTOMATED 155 10^3/uL (150-450); RED BLOOD COUNT 3.61 10^6/uL (4.30-6.10); RED CELL DISTRIBUTION WIDTH 15.9 % (11.5-14.5); WHITE BLOOD COUNT 7.1 10^3/uL (4.0-10.0)
[2017-09-17] MEDS: HEPARIN SOD (PORCINE) 5000 UNITS/ML VIAL SC ×3 (07:00→20:55)
[2017-09-17 07:13] LABS: ANION GAP 9 MEQ/L (8-16); BLOOD UREA NITROGEN 19 MG/DL (7-18); CALCIUM LEVEL 9.4 MG/DL (8.8-10.2); CARBON DIOXIDE LEVEL 28 MEQ/L (21-32); CHLORIDE LEVEL 98 MEQ/L (98-107); GLOMERULAR FILTRATION RATE 45.5 (>42); GLUCOSE, FASTING 99 MG/DL (70-100); POTASSIUM SERUM 3.6 MEQ/L (3.5-5.1); SODIUM LEVEL 135 MEQ/L (136-145)
[2017-09-17] MEDS: ADVAIR HFA 115/21MCG INHALER INH ×2 (07:37→20:24)
[2017-09-17] MEDS: cloNIDine 0.1 MG TAB PO ×3 (08:56→20:56)
[2017-09-17] MEDS: NIFEdipine 60 MG XL TAB PO ×2 (08:57→20:56)
[2017-09-17] MEDS: FERROUS GLUCONATE 324 MG TAB PO (08:57)
[2017-09-17] MEDS: amLODIPine 5 MG TAB PO (08:59)
[2017-09-17] MEDS: CARVedilol 12.5 MG TAB PO ×2 (08:59→20:57)
[2017-09-17] MEDS: FUROSEMIDE 80 MG TAB PO (08:59)
[2017-09-17] MEDS: DOXAZOSIN MESYLATE 1 MG TAB PO (09:00)
[2017-09-17 09:35] LABS: HEPATITIS B SURFACE ANTIGEN NEGATIVE (NEGATIVE)
[2017-09-17 09:41] LABS: HEPATITIS B SURFACE ANTIBODY NEGATIVE (POSITIVE)
[2017-09-17 09:54] LABS: HEPATITIS B CORE ANTIBODY IGM NEGATIVE (NEGATIVE); HEPATITIS C VIRUS ABY INDEX 0.1 INDEX (<0.8)
[2017-09-17 14:16] LABS: HEPATITIS B CORE ANTIBODY IGG Negative (Negative)
[2017-09-17] MEDS: PRAVASTATIN 20 MG TAB PO (20:56)
[2017-09-18] MEDS: HEPARIN SOD (PORCINE) 5000 UNITS/ML VIAL SC ×3 (06:20→20:16)
[2017-09-18] MEDS: DOXAZOSIN MESYLATE 1 MG TAB PO (06:21)
[2017-09-18] MEDS: FUROSEMIDE 80 MG TAB PO (06:21)
[2017-09-18] MEDS: FERROUS GLUCONATE 324 MG TAB PO (06:21)
[2017-09-18] MEDS: cloNIDine 0.1 MG TAB PO ×2 (07:14→20:16)
[2017-09-18] MEDS: CARVedilol 12.5 MG TAB PO ×2 (07:15→20:16)
[2017-09-18] MEDS: amLODIPine 5 MG TAB PO (07:15)
[2017-09-18] MEDS: NIFEdipine 60 MG XL TAB PO (07:16)
[2017-09-18] MEDS: ADVAIR HFA 115/21MCG INHALER INH ×2 (07:56→21:00)
[2017-09-18 13:13] LABS: HEMATOCRIT 23.7 % (42.0-52.0); MEAN CORPUSCULAR HEMOGLOBIN 31.3 pg (27.0-33.0); MEAN CORPUSCULAR HGB CONC 33.8 g/dl (32.0-36.5); MEAN CORPUSCULAR VOLUME 92.6 fl (80.0-96.0); PLATELET COUNT, AUTOMATED 105 10^3/uL (150-450); RED BLOOD COUNT 2.56 10^6/uL (4.30-6.10); RED CELL DISTRIBUTION WIDTH 15.9 % (11.5-14.5); WHITE BLOOD COUNT 6.8 10^3/uL (4.0-10.0)
[2017-09-18 13:36] LABS: ANION GAP 10 MEQ/L (8-16); BLOOD UREA NITROGEN 39 MG/DL (7-18); CALCIUM LEVEL 8.7 MG/DL (8.8-10.2); CARBON DIOXIDE LEVEL 28 MEQ/L (21-32); CHLORIDE LEVEL 93 MEQ/L (98-107); CREATININE FOR GFR 3.01 MG/DL (0.70-1.30); GLOMERULAR FILTRATION RATE 21.9 (>42); GLUCOSE, FASTING 97 MG/DL (70-100); POTASSIUM SERUM 3.7 MEQ/L (3.5-5.1); SODIUM LEVEL 131 MEQ/L (136-145)
[2017-09-18] MEDS: HEPARIN 1,000 UNITS/ML 10ML VIAL (FOR RADIOLOGY& DIALYSIS ONLY) IV (14:00)
[2017-09-18] MEDS: HEPARIN 1,000 UNITS/ML 10ML VIAL (FOR RADIOLOGY& DIALYSIS ONLY) XX (14:00)
[2017-09-18] MEDS: PRAVASTATIN 20 MG TAB PO (20:15)
[2017-09-19] MEDS: HEPARIN SOD (PORCINE) 5000 UNITS/ML VIAL SC (05:20)
[2017-09-19 06:04] LABS: HEMATOCRIT 23.9 % (42.0-52.0); HEMOGLOBIN 7.8 g/dl (14.0-18.0); MEAN CORPUSCULAR HEMOGLOBIN 30.8 pg (27.0-33.0); MEAN CORPUSCULAR HGB CONC 32.6 g/dl (32.0-36.5); MEAN CORPUSCULAR VOLUME 94.5 fl (80.0-96.0); PLATELET COUNT, AUTOMATED 113 10^3/uL (150-450); RED BLOOD COUNT 2.53 10^6/uL (4.30-6.10); RED CELL DISTRIBUTION WIDTH 16.3 % (11.5-14.5); WHITE BLOOD COUNT 6.4 10^3/uL (4.0-10.0)
[2017-09-19 06:23] LABS: ANION GAP 7 MEQ/L (8-16); BLOOD UREA NITROGEN 16 MG/DL (7-18); CALCIUM LEVEL 8.9 MG/DL (8.8-10.2); CARBON DIOXIDE LEVEL 29 MEQ/L (21-32); CHLORIDE LEVEL 99 MEQ/L (98-107); CREATININE FOR GFR 1.81 MG/DL (0.70-1.30); GLOMERULAR FILTRATION RATE 39.4 (>42); GLUCOSE, FASTING 103 MG/DL (70-100); POTASSIUM SERUM 3.9 MEQ/L (3.5-5.1); SODIUM LEVEL 135 MEQ/L (136-145)
[2017-09-19] MEDS: DOXAZOSIN MESYLATE 1 MG TAB PO (07:43)
[2017-09-19] MEDS: CARVedilol 12.5 MG TAB PO ×2 (07:43→20:33)
[2017-09-19] MEDS: cloNIDine 0.1 MG TAB PO ×2 (07:44→20:32)
[2017-09-19] MEDS: NIFEdipine 60 MG XL TAB PO (07:44)
[2017-09-19] MEDS: FERROUS GLUCONATE 324 MG TAB PO ×2 (07:44→20:30)
[2017-09-19] MEDS: ADVAIR HFA 115/21MCG INHALER INH ×2 (07:59→20:18)
[2017-09-19] MEDS: PANTOPRAZOLE 40MG TAB (PROTONIX) PO (09:56)
[2017-09-19 09:58] LABS: RETIC HEMOGLOBIN EQUIVALENT 36.8 pg (24-36); RETICULOCYTE # 32.6 10^9/L (17-77); RETICULOCYTE % 1.2 % (0.5-1.5)
[2017-09-19 10:03] LABS: REASON FOR REVIEW ANEMIA / RBC MORPH; SLIDE REVIEW Report; SOURCE PERIPHERAL SMEAR
[2017-09-19 10:29] LABS: FERRITIN 284 NG/ML (26-388); IRON (FE) 41 UG/DL (65-175); PERCENT SATURATION 17.3 % (19.7-50.0); TOTAL IRON BINDING CAPACITY 237 UG/DL (250-450)
[2017-09-19 11:21] LABS: VITAMIN B12 LEVEL 398 PG/ML (247-911)
[2017-09-19 11:22] LABS: FOLATE 10.2 NG/ML (>5.4)
[2017-09-19] MEDS: ASCORBIC ACID 250 MG TAB PO ×2 (12:33→20:32)
[2017-09-19] MEDS: SENOKOT S TAB PO ×2 (12:33→20:33)
[2017-09-19] MEDS ORDERED: IRON SUCROSE 100MG 5ML VIAL (J1756 PER 1MG) IV (12:45)
[2017-09-19 12:48] LABS: IMMEDIATE SPIN CROSSMATCH 1 1
[2017-09-19] MEDS: PRAVASTATIN 20 MG TAB PO (20:32)
[2017-09-20] MEDS: ASCORBIC ACID 250 MG TAB PO ×2 (06:34→20:38)
[2017-09-20] MEDS: CARVedilol 12.5 MG TAB PO ×2 (06:34→20:39)
[2017-09-20] MEDS: DOXAZOSIN MESYLATE 1 MG TAB PO (06:34)
[2017-09-20] MEDS: FERROUS GLUCONATE 324 MG TAB PO ×2 (06:34→20:38)
[2017-09-20] MEDS: cloNIDine 0.1 MG TAB PO ×2 (06:35→20:39)
[2017-09-20] MEDS: PANTOPRAZOLE 40MG TAB (PROTONIX) PO (06:35)
[2017-09-20] MEDS: NIFEdipine 60 MG XL TAB PO (06:35)
[2017-09-20] MEDS: SENOKOT S TAB PO ×2 (06:35→20:38)
[2017-09-20] MEDS: ADVAIR HFA 115/21MCG INHALER INH ×2 (08:27→21:00)
[2017-09-20] MEDS ORDERED: DARBEPOETIN 100 MCG/0.5 ML *DIALYSIS* SYRINGE (J0882) IV (09:30)
[2017-09-20 13:20] LABS: HEMATOCRIT 24.5 % (42.0-52.0); HEMOGLOBIN 8.3 g/dl (14.0-18.0); MEAN CORPUSCULAR HGB CONC 33.9 g/dl (32.0-36.5); MEAN CORPUSCULAR VOLUME 91.4 fl (80.0-96.0); PLATELET COUNT, AUTOMATED 107 10^3/uL (150-450); RED BLOOD COUNT 2.68 10^6/uL (4.30-6.10); RED CELL DISTRIBUTION WIDTH 16.8 % (11.5-14.5); WHITE BLOOD COUNT 7.4 10^3/uL (4.0-10.0)
[2017-09-20 13:33] LABS: ANION GAP 10 MEQ/L (8-16); BLOOD UREA NITROGEN 35 MG/DL (7-18); CALCIUM LEVEL 8.1 MG/DL (8.8-10.2); CARBON DIOXIDE LEVEL 27 MEQ/L (21-32); CHLORIDE LEVEL 96 MEQ/L (98-107); CREATININE FOR GFR 2.28 MG/DL (0.70-1.30); GLOMERULAR FILTRATION RATE 30.2 (>42); GLUCOSE, FASTING 108 MG/DL (70-100); SODIUM LEVEL 133 MEQ/L (136-145)
[2017-09-20] MEDS: ACETAMINOPHEN TAB 650MG DOSE (2X325MG) PO (18:21)
[2017-09-20] MEDS: PRAVASTATIN 20 MG TAB PO (20:38)
[2017-09-21 06:02] LABS: HEMATOCRIT 25.7 % (42.0-52.0); HEMOGLOBIN 8.5 g/dl (14.0-18.0); MEAN CORPUSCULAR HEMOGLOBIN 30.7 pg (27.0-33.0); MEAN CORPUSCULAR HGB CONC 33.1 g/dl (32.0-36.5); MEAN CORPUSCULAR VOLUME 92.8 fl (80.0-96.0); RED BLOOD COUNT 2.77 10^6/uL (4.30-6.10); RED CELL DISTRIBUTION WIDTH 16.8 % (11.5-14.5); WHITE BLOOD COUNT 6.8 10^3/uL (4.0-10.0)
[2017-09-21 06:16] LABS: PLATELET COUNT, AUTOMATED 99 10^3/uL (150-450)
[2017-09-21 06:17] LABS: IMMATURE PLATELET FRACTION % 2.2 % (0.0-10.9)
[2017-09-21 06:35] LABS: ANION GAP 8 MEQ/L (8-16); BLOOD UREA NITROGEN 13 MG/DL (7-18); CALCIUM LEVEL 8.7 MG/DL (8.8-10.2); CARBON DIOXIDE LEVEL 28 MEQ/L (21-32); CHLORIDE LEVEL 99 MEQ/L (98-107); CREATININE FOR GFR 1.41 MG/DL (0.70-1.30); GLOMERULAR FILTRATION RATE 52.6 (>42); GLUCOSE, FASTING 96 MG/DL (70-100); POTASSIUM SERUM 3.7 MEQ/L (3.5-5.1); SODIUM LEVEL 135 MEQ/L (136-145)
[2017-09-21] MEDS: ADVAIR HFA 115/21MCG INHALER INH ×2 (08:38→20:19)
[2017-09-21] MEDS: FERROUS GLUCONATE 324 MG TAB PO ×2 (09:05→21:15)
[2017-09-21] MEDS: DOXAZOSIN MESYLATE 1 MG TAB PO (09:05)
[2017-09-21] MEDS: CARVedilol 12.5 MG TAB PO ×2 (09:05→21:15)
[2017-09-21] MEDS: SENOKOT S TAB PO ×2 (09:06→21:15)
[2017-09-21] MEDS: PANTOPRAZOLE 40MG TAB (PROTONIX) PO (09:06)
[2017-09-21] MEDS: NIFEdipine 60 MG XL TAB PO (09:06)
[2017-09-21] MEDS: ASCORBIC ACID 250 MG TAB PO ×2 (09:06→21:14)
[2017-09-21] MEDS: cloNIDine 0.1 MG TAB PO ×2 (09:09→21:15)
[2017-09-21] MEDS: ACETAMINOPHEN TAB 650MG DOSE (2X325MG) PO (14:08)
[2017-09-21] MEDS: PRAVASTATIN 20 MG TAB PO (21:14)
[2017-09-22 05:54] LABS: HEMATOCRIT 24.2 % (42.0-52.0); HEMOGLOBIN 8.1 g/dl (14.0-18.0); MEAN CORPUSCULAR HGB CONC 33.5 g/dl (32.0-36.5); MEAN CORPUSCULAR VOLUME 92.7 fl (80.0-96.0); PLATELET COUNT, AUTOMATED 103 10^3/uL (150-450); RED BLOOD COUNT 2.61 10^6/uL (4.30-6.10); RED CELL DISTRIBUTION WIDTH 16.3 % (11.5-14.5)
[2017-09-22 06:07] LABS: ANION GAP 10 MEQ/L (8-16); BLOOD UREA NITROGEN 21 MG/DL (7-18); CALCIUM LEVEL 8.5 MG/DL (8.8-10.2); CARBON DIOXIDE LEVEL 26 MEQ/L (21-32); CHLORIDE LEVEL 98 MEQ/L (98-107); GLOMERULAR FILTRATION RATE 42.4 (>42); GLUCOSE, FASTING 98 MG/DL (70-100); POTASSIUM SERUM 3.6 MEQ/L (3.5-5.1); SODIUM LEVEL 134 MEQ/L (136-145)
[2017-09-22] MEDS: ADVAIR HFA 115/21MCG INHALER INH ×2 (08:14→20:11)
[2017-09-22] MEDS: PANTOPRAZOLE 40MG TAB (PROTONIX) PO (09:14)
[2017-09-22] MEDS: SENOKOT S TAB PO ×2 (09:14→19:58)
[2017-09-22] MEDS: cloNIDine 0.1 MG TAB PO ×2 (09:15→19:58)
[2017-09-22] MEDS: FERROUS GLUCONATE 324 MG TAB PO ×2 (09:16→19:57)
[2017-09-22] MEDS: NIFEdipine 60 MG XL TAB PO (09:16)
[2017-09-22] MEDS: ASCORBIC ACID 250 MG TAB PO ×2 (09:16→19:58)
[2017-09-22] MEDS: CARVedilol 12.5 MG TAB PO ×2 (09:16→19:59)
[2017-09-22] MEDS: DOXAZOSIN MESYLATE 1 MG TAB PO (09:17)
[2017-09-22 10:21] LABS: IMMEDIATE SPIN CROSSMATCH 1 2
[2017-09-22] MEDS: PRAVASTATIN 20 MG TAB PO (19:57)
[2017-09-22] MEDS: ACETAMINOPHEN TAB 650MG DOSE (2X325MG) PO (19:58)
[2017-09-23] MEDS: FERROUS GLUCONATE 324 MG TAB PO ×2 (08:12→21:13)
[2017-09-23] MEDS: ASCORBIC ACID 250 MG TAB PO ×2 (08:12→21:14)
[2017-09-23] MEDS: PANTOPRAZOLE 40MG TAB (PROTONIX) PO (08:12)
[2017-09-23] MEDS: SENOKOT S TAB PO ×2 (08:12→21:13)
[2017-09-23] MEDS: CARVedilol 12.5 MG TAB PO ×3 (08:13→21:00)
[2017-09-23] MEDS: cloNIDine 0.1 MG TAB PO ×2 (08:14→21:00)
[2017-09-23] MEDS: DOXAZOSIN MESYLATE 1 MG TAB PO (08:14)
[2017-09-23] MEDS: NIFEdipine 60 MG XL TAB PO (08:14)
[2017-09-23] MEDS: ADVAIR HFA 115/21MCG INHALER INH ×2 (08:24→19:55)
[2017-09-23 14:42] LABS: HEMATOCRIT 25.4 % (42.0-52.0); HEMOGLOBIN 8.5 g/dl (14.0-18.0); MEAN CORPUSCULAR HEMOGLOBIN 30.6 pg (27.0-33.0); MEAN CORPUSCULAR HGB CONC 33.5 g/dl (32.0-36.5); MEAN CORPUSCULAR VOLUME 91.4 fl (80.0-96.0); PLATELET COUNT, AUTOMATED 106 10^3/uL (150-450); RED BLOOD COUNT 2.78 10^6/uL (4.30-6.10); RED CELL DISTRIBUTION WIDTH 16.4 % (11.5-14.5); WHITE BLOOD COUNT 5.5 10^3/uL (4.0-10.0)
[2017-09-23 15:20] LABS: ANION GAP 10 MEQ/L (8-16); BLOOD UREA NITROGEN 29 MG/DL (7-18); CALCIUM LEVEL 7.9 MG/DL (8.8-10.2); CARBON DIOXIDE LEVEL 26 MEQ/L (21-32); CHLORIDE LEVEL 99 MEQ/L (98-107); CREATININE FOR GFR 1.26 MG/DL (0.70-1.30); GLOMERULAR FILTRATION RATE 59.9 (>42); GLUCOSE, FASTING 104 MG/DL (70-100); POTASSIUM SERUM 3.7 MEQ/L (3.5-5.1); SODIUM LEVEL 135 MEQ/L (136-145)
[2017-09-23] MEDS: HEPARIN 1,000 UNITS/ML 10ML VIAL (FOR RADIOLOGY& DIALYSIS ONLY) IV (17:49)
[2017-09-23] MEDS: HEPARIN 1,000 UNITS/ML 10ML VIAL (FOR RADIOLOGY& DIALYSIS ONLY) XX (17:49)
[2017-09-23] MEDS: ACETAMINOPHEN TAB 650MG DOSE (2X325MG) PO (17:56)
[2017-09-23] MEDS: PRAVASTATIN 20 MG TAB PO (21:13)
[2017-09-24] MEDS: CARVedilol 12.5 MG TAB PO ×3 (08:10→21:59)
[2017-09-24] MEDS: PANTOPRAZOLE 40MG TAB (PROTONIX) PO (08:10)
[2017-09-24] MEDS: SENOKOT S TAB PO ×2 (08:11→21:58)
[2017-09-24] MEDS: ASCORBIC ACID 250 MG TAB PO ×2 (08:11→21:58)
[2017-09-24] MEDS: DOXAZOSIN MESYLATE 1 MG TAB PO (08:11)
[2017-09-24] MEDS: FERROUS GLUCONATE 324 MG TAB PO ×2 (08:11→21:59)
[2017-09-24] MEDS: NIFEdipine 60 MG XL TAB PO (08:11)
[2017-09-24] MEDS: cloNIDine 0.1 MG TAB PO ×2 (08:11→21:59)
[2017-09-24 08:19] LABS: ERYTHROCYTE SEDIMENTATION RATE 93 mm/hr (0-20)
[2017-09-24] MEDS: ADVAIR HFA 115/21MCG INHALER INH ×2 (08:37→21:00)
[2017-09-24] MEDS: PRAVASTATIN 20 MG TAB PO (21:58)
[2017-09-25] MEDS: ACETAMINOPHEN TAB 650MG DOSE (2X325MG) PO ×2 (01:50→21:14)
[2017-09-25] MEDS: NIFEdipine 60 MG XL TAB PO (05:13)
[2017-09-25] MEDS: DOXAZOSIN MESYLATE 1 MG TAB PO (05:13)
[2017-09-25] MEDS: PANTOPRAZOLE 40MG TAB (PROTONIX) PO (05:13)
[2017-09-25] MEDS: CARVedilol 12.5 MG TAB PO ×3 (05:14→21:15)
[2017-09-25] MEDS: FERROUS GLUCONATE 324 MG TAB PO ×2 (05:14→21:14)
[2017-09-25] MEDS: cloNIDine 0.1 MG TAB PO ×2 (05:14→21:15)
[2017-09-25] MEDS: ASCORBIC ACID 250 MG TAB PO ×2 (05:14→21:15)
[2017-09-25] MEDS: SENOKOT S TAB PO ×2 (05:14→21:15)
[2017-09-25] MEDS: ADVAIR HFA 115/21MCG INHALER INH ×2 (08:53→20:44)
[2017-09-25 11:14] LABS: BASO % 0.7 % (0.0-1.0); EOS % 0.7 % (0.0-3.0); HEMATOCRIT 28.6 % (42.0-52.0); HEMOGLOBIN 9.4 g/dl (14.0-18.0); IMMATURE GRANULOCYTE % 0.9 % (0-3.0); LYMPH # 0.5 10^3/uL (1.5-4.5); MEAN CORPUSCULAR HGB CONC 32.9 g/dl (32.0-36.5); MEAN CORPUSCULAR VOLUME 91.4 fl (80.0-96.0); MONO # 0.6 10^3/uL (0.0-0.8); MONO % 13.2 % (0.0-5.0); NEUTROPHILS # 3.1 10^3/uL (1.8-7.7); NEUTROPHILS % 72.5 % (36.0-66.0); PLATELET COUNT, AUTOMATED 119 10^3/uL (150-450); RED BLOOD COUNT 3.13 10^6/uL (4.30-6.10); RED CELL DISTRIBUTION WIDTH 16.4 % (11.5-14.5); WHITE BLOOD COUNT 4.3 10^3/uL (4.0-10.0)
[2017-09-25 11:33] LABS: ERYTHROCYTE SEDIMENTATION RATE 93 mm/hr (0-20)
[2017-09-25 12:01] LABS: ANION GAP 10 MEQ/L (8-16); BLOOD UREA NITROGEN 21 MG/DL (7-18); CALCIUM LEVEL 8.1 MG/DL (8.8-10.2); CARBON DIOXIDE LEVEL 27 MEQ/L (21-32); CHLORIDE LEVEL 99 MEQ/L (98-107); CREATININE FOR GFR 1.32 MG/DL (0.70-1.30); GLOMERULAR FILTRATION RATE 56.8 (>42); GLUCOSE, FASTING 131 MG/DL (70-100); POTASSIUM SERUM 3.3 MEQ/L (3.5-5.1); SODIUM LEVEL 136 MEQ/L (136-145)
[2017-09-25 18:54] LABS: KETONE, URINE AUTO RFX NEGATIVE (NEGATIVE); NITRITE, URINE AUTO RFX NEGATIVE (NEGATIVE); RBC, URINE AUTO RFX 2 /HPF (0-3); SPECIFIC GRAVITY UR AUTO RFX 1.017 (1.002-1.035); SQUAM EPITHELIAL CELL UR AURFX 1 /HPF (0-6); YEAST LIKE CELL URINE AUTO RFX SMALL
[2017-09-25 19:03] LABS: LEUKOCYTE ESTERASE UR AUTO RFX 2+ (NEGATIVE); WBC, URINE AUTO RFX 43 /HPF (0-3)
[2017-09-25] MEDS: PRAVASTATIN 20 MG TAB PO (21:14)
[2017-09-26] MEDS: ALBUTEROL 90 MCG/ACT 8GM HFA INHALER INH (05:42)
[2017-09-26 06:57] LABS: BASO % 0.4 % (0.0-1.0); EOS % 0.4 % (0.0-3.0); HEMATOCRIT 26.6 % (42.0-52.0); HEMOGLOBIN 8.9 g/dl (14.0-18.0); LYMPH # 0.5 10^3/uL (1.5-4.5); MEAN CORPUSCULAR HEMOGLOBIN 30.9 pg (27.0-33.0); MEAN CORPUSCULAR HGB CONC 33.5 g/dl (32.0-36.5); MEAN CORPUSCULAR VOLUME 92.4 fl (80.0-96.0); MONO # 0.6 10^3/uL (0.0-0.8); MONO % 11.2 % (0.0-5.0); PLATELET COUNT, AUTOMATED 119 10^3/uL (150-450); RED BLOOD COUNT 2.88 10^6/uL (4.30-6.10); RED CELL DISTRIBUTION WIDTH 16.4 % (11.5-14.5); WHITE BLOOD COUNT 5.1 10^3/uL (4.0-10.0)
[2017-09-26 07:12] LABS: ANION GAP 7 MEQ/L (8-16); BLOOD UREA NITROGEN 10 MG/DL (7-18); C REACTIVE PROTEIN QUANTITATIV 9.58 MG/DL (0.00-0.30); CALCIUM LEVEL 8.4 MG/DL (8.8-10.2); CARBON DIOXIDE LEVEL 27 MEQ/L (21-32); CHLORIDE LEVEL 102 MEQ/L (98-107); CREATININE FOR GFR 0.96 MG/DL (0.70-1.30); GLOMERULAR FILTRATION RATE > 60.0 (>42); GLUCOSE, FASTING 87 MG/DL (70-100); POTASSIUM SERUM 3.4 MEQ/L (3.5-5.1); SODIUM LEVEL 136 MEQ/L (136-145)
[2017-09-26 07:20] LABS: ERYTHROCYTE SEDIMENTATION RATE 106 mm/hr (0-20)
[2017-09-26] MEDS: ADVAIR HFA 115/21MCG INHALER INH ×2 (08:30→20:38)
[2017-09-26] MEDS: FERROUS GLUCONATE 324 MG TAB PO ×2 (09:34→20:23)
[2017-09-26] MEDS: cloNIDine 0.1 MG TAB PO ×2 (09:34→20:24)
[2017-09-26] MEDS: CARVedilol 12.5 MG TAB PO ×3 (09:35→20:21)
[2017-09-26] MEDS: PANTOPRAZOLE 40MG TAB (PROTONIX) PO (09:35)
[2017-09-26] MEDS: ASCORBIC ACID 250 MG TAB PO ×2 (09:35→20:23)
[2017-09-26] MEDS: NIFEdipine 60 MG XL TAB PO (09:35)
[2017-09-26] MEDS: DOXAZOSIN MESYLATE 1 MG TAB PO (09:35)
[2017-09-26] MEDS: SENOKOT S TAB PO ×2 (09:36→20:23)
[2017-09-26] MEDS: POTASSIUM CHLORIDE 10 MEQ SR TABLET PO (11:29)
[2017-09-26] MEDS: amLODIPine 10 MG TAB PO (11:29)
[2017-09-26] MEDS ORDERED: LIDOCAINE VISCOUS 2% SOLN 15ML UDC As Ordered (13:32)
[2017-09-26] MEDS ORDERED: CETACAINE SPRAY 5GM As Ordered (13:32)
[2017-09-26] MEDS ORDERED: MIDAZOLAM INJ 2 MG/2 ML VIAL (J2250) As Ordered ×2 (13:58)
[2017-09-26] MEDS: CETACAINE SPRAY 5GM TOP (14:17)
[2017-09-26] MEDS: MIDAZOLAM INJ 2 MG/2 ML VIAL (J2250) IV (14:17)
[2017-09-26] MEDS: ACETAMINOPHEN TAB 650MG DOSE (2X325MG) PO (15:55)
[2017-09-26] MEDS: PRAVASTATIN 20 MG TAB PO (20:23)
[2017-09-27] MEDS: ACETAMINOPHEN TAB 650MG DOSE (2X325MG) PO (04:04)
[2017-09-27] MEDS: ALBUTEROL 90 MCG/ACT 8GM HFA INHALER INH (04:37)
[2017-09-27 05:41] LABS: BASO % 0.4 % (0.0-1.0); EOS % 0.4 % (0.0-3.0); HEMATOCRIT 26.2 % (42.0-52.0); HEMOGLOBIN 8.6 g/dl (14.0-18.0); IMMATURE GRANULOCYTE % 1.1 % (0-3.0); LYMPH # 0.5 10^3/uL (1.5-4.5); LYMPH % 9.3 % (24.0-44.0); MEAN CORPUSCULAR HGB CONC 32.8 g/dl (32.0-36.5); MEAN CORPUSCULAR VOLUME 91.3 fl (80.0-96.0); MONO # 0.6 10^3/uL (0.0-0.8); MONO % 10.9 % (0.0-5.0); NEUTROPHILS # 4.2 10^3/uL (1.8-7.7); NEUTROPHILS % 77.9 % (36.0-66.0); PLATELET COUNT, AUTOMATED 143 10^3/uL (150-450); RED BLOOD COUNT 2.87 10^6/uL (4.30-6.10); RED CELL DISTRIBUTION WIDTH 16.6 % (11.5-14.5); WHITE BLOOD COUNT 5.4 10^3/uL (4.0-10.0)
[2017-09-27 06:02] LABS: ERYTHROCYTE SEDIMENTATION RATE 107 mm/hr (0-20)
[2017-09-27 06:09] LABS: ANION GAP 8 MEQ/L (8-16); BLOOD UREA NITROGEN 15 MG/DL (7-18); C REACTIVE PROTEIN QUANTITATIV 9.95 MG/DL (0.00-0.30); CALCIUM LEVEL 8.5 MG/DL (8.8-10.2); CARBON DIOXIDE LEVEL 24 MEQ/L (21-32); CHLORIDE LEVEL 104 MEQ/L (98-107); CREATININE FOR GFR 1.12 MG/DL (0.70-1.30); GLOMERULAR FILTRATION RATE > 60.0 (>42); GLUCOSE, FASTING 110 MG/DL (70-100); POTASSIUM SERUM 3.5 MEQ/L (3.5-5.1); SODIUM LEVEL 136 MEQ/L (136-145)
[2017-09-27] MEDS: ASCORBIC ACID 250 MG TAB PO ×2 (06:25→21:23)
[2017-09-27] MEDS: SENOKOT S TAB PO ×2 (06:25→21:23)
[2017-09-27] MEDS: DOXAZOSIN MESYLATE 1 MG TAB PO (06:25)
[2017-09-27] MEDS: PANTOPRAZOLE 40MG TAB (PROTONIX) PO (06:26)
[2017-09-27] MEDS: cloNIDine 0.1 MG TAB PO ×2 (06:26→21:24)
[2017-09-27] MEDS: FERROUS GLUCONATE 324 MG TAB PO (06:26)
[2017-09-27] MEDS: CARVedilol 12.5 MG TAB PO ×3 (06:27→21:24)
[2017-09-27] MEDS: NIFEdipine 60 MG XL TAB PO (06:27)
[2017-09-27] MEDS: ADVAIR HFA 115/21MCG INHALER INH ×2 (08:30→20:51)
[2017-09-27] MEDS: HEPARIN 1,000 UNITS/ML 10ML VIAL (FOR RADIOLOGY& DIALYSIS ONLY) IV (14:00)
[2017-09-27] MEDS ORDERED: IRON SUCROSE 100MG 5ML VIAL (J1756 PER 1MG) IV (14:00)
[2017-09-27 14:10] LABS: ANTINUCLEAR ANTIBODIES DIRECT Negative (Negative)
[2017-09-27] MEDS: CHECK TO SEE IF PATIENT IS RECEIVING DIALYSIS TODAY AND REFER TO THE VANCOMYCIN ORDER XX (16:00)
[2017-09-27] MEDS: CEFEPIME HCL 1 GM in D5W MINI-BAG PLUS 50 ML IV (17:25)
[2017-09-27] MEDS: VANCOMYCIN HCL 1,000 MG, VIAL MATE ADAPTER 1 EACH in D5W 250 ML IV (18:14)
[2017-09-27] MEDS ORDERED: IPRATROPIUM 0.5MG/ALBUTEROL 2.5MG INH SOL UD 3ML (DUONEB)(J7620) NEB (21:00)
[2017-09-27] MEDS: BENZONATATE 100 MG CAP PO (21:23)
[2017-09-27] MEDS: PRAVASTATIN 20 MG TAB PO (21:23)
[2017-09-28 05:43] LABS: BASO % 0.4 % (0.0-1.0); EOS # 0.1 10^3/uL (0.0-0.50); EOS % 1.1 % (0.0-3.0); HEMATOCRIT 26.4 % (42.0-52.0); HEMOGLOBIN 8.6 g/dl (14.0-18.0); IMMATURE GRANULOCYTE % 1.7 % (0-3.0); LYMPH # 0.7 10^3/uL (1.5-4.5); LYMPH % 15.2 % (24.0-44.0); MEAN CORPUSCULAR HEMOGLOBIN 29.9 pg (27.0-33.0); MEAN CORPUSCULAR HGB CONC 32.6 g/dl (32.0-36.5); MEAN CORPUSCULAR VOLUME 91.7 fl (80.0-96.0); MONO # 0.6 10^3/uL (0.0-0.8); MONO % 13.2 % (0.0-5.0); NEUTROPHILS # 3.2 10^3/uL (1.8-7.7); NEUTROPHILS % 68.4 % (36.0-66.0); PLATELET COUNT, AUTOMATED 143 10^3/uL (150-450); RED BLOOD COUNT 2.88 10^6/uL (4.30-6.10); RED CELL DISTRIBUTION WIDTH 16.6 % (11.5-14.5); WHITE BLOOD COUNT 4.6 10^3/uL (4.0-10.0)
[2017-09-28 06:00] LABS: ANION GAP 7 MEQ/L (8-16); BLOOD UREA NITROGEN 8 MG/DL (7-18); C REACTIVE PROTEIN QUANTITATIV 8.66 MG/DL (0.00-0.30); CALCIUM LEVEL 8.7 MG/DL (8.8-10.2); CARBON DIOXIDE LEVEL 26 MEQ/L (21-32); CHLORIDE LEVEL 104 MEQ/L (98-107); GLOMERULAR FILTRATION RATE > 60.0 (>42); GLUCOSE, FASTING 85 MG/DL (70-100); POTASSIUM SERUM 3.5 MEQ/L (3.5-5.1); SODIUM LEVEL 137 MEQ/L (136-145)
[2017-09-28 06:12] LABS: ERYTHROCYTE SEDIMENTATION RATE 128 mm/hr (0-20)
[2017-09-28] MEDS: ADVAIR HFA 115/21MCG INHALER INH ×2 (08:28→20:45)
[2017-09-28] MEDS: CARVedilol 12.5 MG TAB PO ×3 (09:00→20:25)
[2017-09-28] MEDS: SENOKOT S TAB PO ×2 (09:30→20:25)
[2017-09-28] MEDS: PANTOPRAZOLE 40MG TAB (PROTONIX) PO (09:31)
[2017-09-28] MEDS: ASCORBIC ACID 250 MG TAB PO ×2 (09:31→20:25)
[2017-09-28] MEDS: NIFEdipine 60 MG XL TAB PO (09:32)
[2017-09-28] MEDS: DOXAZOSIN MESYLATE 1 MG TAB PO (09:32)
[2017-09-28] MEDS: BENZONATATE 100 MG CAP PO ×3 (09:33→20:25)
[2017-09-28] MEDS: cloNIDine 0.1 MG TAB PO ×2 (09:33→20:25)
[2017-09-28 09:52] LABS: VANCOMYCIN RANDOM 13.5 UG/ML
[2017-09-28] MEDS: VANCOMYCIN HCL 1,000 MG, VIAL MATE ADAPTER 1 EACH in D5W 250 ML IV (11:07)
[2017-09-28] MEDS: CHECK TO SEE IF PATIENT IS RECEIVING DIALYSIS TODAY AND REFER TO THE VANCOMYCIN ORDER XX (15:47)
[2017-09-28] MEDS: CEFEPIME HCL 1 GM in D5W MINI-BAG PLUS 50 ML IV (18:04)
[2017-09-28] MEDS: PRAVASTATIN 20 MG TAB PO (20:25)
[2017-09-29] MEDS: CEPACOL LOZENGE PO (06:16)
[2017-09-29 07:21] LABS: BASO % 0.2 % (0.0-1.0); EOS # 0.1 10^3/uL (0.0-0.50); EOS % 1.3 % (0.0-3.0); HEMATOCRIT 25.5 % (42.0-52.0); HEMOGLOBIN 8.2 g/dl (14.0-18.0); IMMATURE GRANULOCYTE % 1.9 % (0-3.0); LYMPH # 0.7 10^3/uL (1.5-4.5); LYMPH % 14.3 % (24.0-44.0); MEAN CORPUSCULAR HEMOGLOBIN 30.1 pg (27.0-33.0); MEAN CORPUSCULAR HGB CONC 32.2 g/dl (32.0-36.5); MEAN CORPUSCULAR VOLUME 93.8 fl (80.0-96.0); MONO # 0.7 10^3/uL (0.0-0.8); MONO % 14.3 % (0.0-5.0); NEUTROPHILS # 3.2 10^3/uL (1.8-7.7); PLATELET COUNT, AUTOMATED 144 10^3/uL (150-450); RED BLOOD COUNT 2.72 10^6/uL (4.30-6.10); RED CELL DISTRIBUTION WIDTH 16.7 % (11.5-14.5); WHITE BLOOD COUNT 4.7 10^3/uL (4.0-10.0)
[2017-09-29 07:38] LABS: ANION GAP 8 MEQ/L (8-16); BLOOD UREA NITROGEN 14 MG/DL (7-18); C REACTIVE PROTEIN QUANTITATIV 7.18 MG/DL (0.00-0.30); CALCIUM LEVEL 8.5 MG/DL (8.8-10.2); CARBON DIOXIDE LEVEL 25 MEQ/L (21-32); CHLORIDE LEVEL 103 MEQ/L (98-107); GLOMERULAR FILTRATION RATE > 60.0 (>42); GLUCOSE, FASTING 104 MG/DL (70-100); POTASSIUM SERUM 3.3 MEQ/L (3.5-5.1); SODIUM LEVEL 136 MEQ/L (136-145)
[2017-09-29 08:20] LABS: ERYTHROCYTE SEDIMENTATION RATE 108 mm/hr (0-20)
[2017-09-29] MEDS: ADVAIR HFA 115/21MCG INHALER INH ×2 (08:28→21:01)
[2017-09-29 10:49] LABS: VANCOMYCIN RANDOM 17.5 UG/ML
[2017-09-29] MEDS: CHECK TO SEE IF PATIENT IS RECEIVING DIALYSIS TODAY AND REFER TO THE VANCOMYCIN ORDER XX (11:41)
[2017-09-29] MEDS: SENOKOT S TAB PO ×2 (12:03→20:54)
[2017-09-29] MEDS: CARVedilol 12.5 MG TAB PO ×3 (12:04→20:53)
[2017-09-29] MEDS: PANTOPRAZOLE 40MG TAB (PROTONIX) PO (12:04)
[2017-09-29] MEDS: ASCORBIC ACID 250 MG TAB PO ×2 (12:04→20:53)
[2017-09-29] MEDS: BENZONATATE 100 MG CAP PO ×3 (12:04→20:53)
[2017-09-29] MEDS: DOXAZOSIN MESYLATE 1 MG TAB PO (12:04)
[2017-09-29] MEDS: cloNIDine 0.1 MG TAB PO ×2 (12:05→20:53)
[2017-09-29] MEDS: NIFEdipine 60 MG XL TAB PO (12:05)
[2017-09-29] MEDS: CEFEPIME HCL 1 GM in D5W MINI-BAG PLUS 50 ML IV (16:46)
[2017-09-29] MEDS: VANCOMYCIN HCL 1,000 MG, VIAL MATE ADAPTER 1 EACH in D5W 250 ML IV (17:44)
[2017-09-29] MEDS: ALBUTEROL 90 MCG/ACT 8GM HFA INHALER INH (17:58)
[2017-09-29] MEDS: PRAVASTATIN 20 MG TAB PO (20:53)
[2017-09-30 06:11] LABS: BASO % 0.4 % (0.0-1.0); EOS # 0.1 10^3/uL (0.0-0.50); HEMATOCRIT 24.9 % (42.0-52.0); IMMATURE GRANULOCYTE % 1.6 % (0-3.0); LYMPH # 0.6 10^3/uL (1.5-4.5); LYMPH % 11.7 % (24.0-44.0); MEAN CORPUSCULAR HEMOGLOBIN 29.5 pg (27.0-33.0); MEAN CORPUSCULAR HGB CONC 32.1 g/dl (32.0-36.5); MEAN CORPUSCULAR VOLUME 91.9 fl (80.0-96.0); MONO # 0.7 10^3/uL (0.0-0.8); MONO % 12.7 % (0.0-5.0); NEUTROPHILS # 3.7 10^3/uL (1.8-7.7); NEUTROPHILS % 72.6 % (36.0-66.0); PLATELET COUNT, AUTOMATED 156 10^3/uL (150-450); RED BLOOD COUNT 2.71 10^6/uL (4.30-6.10); RED CELL DISTRIBUTION WIDTH 16.7 % (11.5-14.5); WHITE BLOOD COUNT 5.1 10^3/uL (4.0-10.0)
[2017-09-30 06:31] LABS: ANION GAP 7 MEQ/L (8-16); BLOOD UREA NITROGEN 12 MG/DL (7-18); C REACTIVE PROTEIN QUANTITATIV 6.22 MG/DL (0.00-0.30); CALCIUM LEVEL 8.5 MG/DL (8.8-10.2); CARBON DIOXIDE LEVEL 24 MEQ/L (21-32); CHLORIDE LEVEL 104 MEQ/L (98-107); CREATININE FOR GFR 1.07 MG/DL (0.70-1.30); GLOMERULAR FILTRATION RATE > 60.0 (>42); GLUCOSE, FASTING 97 MG/DL (70-100); POTASSIUM SERUM 3.3 MEQ/L (3.5-5.1); SODIUM LEVEL 135 MEQ/L (136-145)
[2017-09-30 07:02] LABS: ERYTHROCYTE SEDIMENTATION RATE 106 mm/hr (0-20)
[2017-09-30] MEDS: ADVAIR HFA 115/21MCG INHALER INH ×2 (08:22→20:05)
[2017-09-30] MEDS: POTASSIUM CHLORIDE 10 MEQ SR TABLET PO ×2 (09:07→21:42)
[2017-09-30] MEDS: PANTOPRAZOLE 40MG TAB (PROTONIX) PO (09:07)
[2017-09-30] MEDS: ASCORBIC ACID 250 MG TAB PO ×2 (09:07→21:44)
[2017-09-30] MEDS: BENZONATATE 100 MG CAP PO ×3 (09:08→22:22)
[2017-09-30] MEDS: DOXAZOSIN MESYLATE 1 MG TAB PO (09:08)
[2017-09-30] MEDS: NIFEdipine 60 MG XL TAB PO (09:08)
[2017-09-30] MEDS: cloNIDine 0.1 MG TAB PO ×2 (09:09→21:43)
[2017-09-30] MEDS: CARVedilol 12.5 MG TAB PO ×3 (09:09→21:43)
[2017-09-30] MEDS: SENOKOT S TAB PO ×2 (09:09→21:44)
[2017-09-30] MEDS: FUROSEMIDE 100 MG/10 ML VIAL (J1940) IV ×3 (10:09→21:45)
[2017-09-30] MEDS: metOLazone 5 MG TAB PO (13:08)
[2017-09-30] MEDS: CEFEPIME HCL 1 GM in D5W MINI-BAG PLUS 50 ML IV (16:00)
[2017-09-30] MEDS: CHECK TO SEE IF PATIENT IS RECEIVING DIALYSIS TODAY AND REFER TO THE VANCOMYCIN ORDER XX (17:08)
[2017-09-30] MEDS: VANCOMYCIN HCL 1,000 MG, VIAL MATE ADAPTER 1 EACH in D5W 250 ML IV (18:35)
[2017-09-30] MEDS: PRAVASTATIN 20 MG TAB PO (21:44)
[2017-09-30] MEDS: ACETAMINOPHEN TAB 650MG DOSE (2X325MG) PO (21:44)
[2017-10-01] MEDS ORDERED: SLF 3 ML SYR IV (01:30)
[2017-10-01] MEDS: SLF 3 ML SYR IV ×3 (05:21→21:02)
[2017-10-01 05:53] LABS: ANION GAP 7 MEQ/L (8-16); BLOOD UREA NITROGEN 15 MG/DL (7-18); CALCIUM LEVEL 8.7 MG/DL (8.8-10.2); CARBON DIOXIDE LEVEL 28 MEQ/L (21-32); CHLORIDE LEVEL 100 MEQ/L (98-107); CREATININE FOR GFR 1.28 MG/DL (0.70-1.30); GLOMERULAR FILTRATION RATE 58.8 (>42); GLUCOSE, FASTING 87 MG/DL (70-100); POTASSIUM SERUM 3.2 MEQ/L (3.5-5.1); SODIUM LEVEL 135 MEQ/L (136-145)
[2017-10-01] MEDS ORDERED: POTASSIUM CHLORIDE 10 MEQ SR TABLET PO (07:30)
[2017-10-01] MEDS: FUROSEMIDE 100 MG/10 ML VIAL (J1940) IV ×2 (08:40→15:45)
[2017-10-01] MEDS: POTASSIUM CHLORIDE 10 MEQ SR TABLET PO ×2 (08:41→12:06)
[2017-10-01] MEDS: DOXAZOSIN MESYLATE 1 MG TAB PO (08:41)
[2017-10-01] MEDS: SENOKOT S TAB PO ×3 (08:41→21:02)
[2017-10-01] MEDS: BENZONATATE 100 MG CAP PO ×3 (08:42→21:02)
[2017-10-01] MEDS: cloNIDine 0.1 MG TAB PO ×2 (08:42→21:01)
[2017-10-01] MEDS: PANTOPRAZOLE 40MG TAB (PROTONIX) PO (08:43)
[2017-10-01] MEDS: NIFEdipine 60 MG XL TAB PO (08:43)
[2017-10-01] MEDS: ASCORBIC ACID 250 MG TAB PO ×2 (08:43→21:02)
[2017-10-01] MEDS: CARVedilol 12.5 MG TAB PO ×2 (08:44→21:01)
[2017-10-01] MEDS: ADVAIR HFA 115/21MCG INHALER INH ×2 (09:00→23:07)
[2017-10-01] MEDS: CHECK TO SEE IF PATIENT IS RECEIVING DIALYSIS TODAY AND REFER TO THE VANCOMYCIN ORDER XX (16:00)
[2017-10-01 17:40] LABS: VANCOMYCIN LEVEL TROUGH 24.1 UG/ML (10.0-20.0)
[2017-10-01] MEDS: PRAVASTATIN 20 MG TAB PO (21:02)
[2017-10-02] MEDS: FUROSEMIDE 100 MG/10 ML VIAL (J1940) IV ×3 (00:10→20:48)
[2017-10-02] MEDS: SLF 3 ML SYR IV ×3 (03:32→20:47)
[2017-10-02 05:38] LABS: BASO % 0.4 % (0.0-1.0); EOS # 0.1 10^3/uL (0.0-0.50); EOS % 1.1 % (0.0-3.0); HEMATOCRIT 27.3 % (42.0-52.0); HEMOGLOBIN 8.9 g/dl (14.0-18.0); IMMATURE GRANULOCYTE % 1.1 % (0-3.0); LYMPH # 0.7 10^3/uL (1.5-4.5); LYMPH % 12.6 % (24.0-44.0); MEAN CORPUSCULAR HEMOGLOBIN 29.8 pg (27.0-33.0); MEAN CORPUSCULAR HGB CONC 32.6 g/dl (32.0-36.5); MEAN CORPUSCULAR VOLUME 91.3 fl (80.0-96.0); MONO # 0.7 10^3/uL (0.0-0.8); NEUTROPHILS # 3.7 10^3/uL (1.8-7.7); NEUTROPHILS % 70.8 % (36.0-66.0); PLATELET COUNT, AUTOMATED 198 10^3/uL (150-450); RED BLOOD COUNT 2.99 10^6/uL (4.30-6.10); RED CELL DISTRIBUTION WIDTH 17.1 % (11.5-14.5); WHITE BLOOD COUNT 5.2 10^3/uL (4.0-10.0)
[2017-10-02 05:55] LABS: ANION GAP 9 MEQ/L (8-16); BLOOD UREA NITROGEN 16 MG/DL (7-18); CALCIUM LEVEL 8.6 MG/DL (8.8-10.2); CARBON DIOXIDE LEVEL 28 MEQ/L (21-32); CHLORIDE LEVEL 100 MEQ/L (98-107); CREATININE FOR GFR 1.36 MG/DL (0.70-1.30); GLOMERULAR FILTRATION RATE 54.8 (>42); GLUCOSE, FASTING 102 MG/DL (70-100); POTASSIUM SERUM 3.4 MEQ/L (3.5-5.1); SODIUM LEVEL 137 MEQ/L (136-145); VANCOMYCIN RANDOM 19.5 UG/ML
[2017-10-02] MEDS: BENZONATATE 100 MG CAP PO ×3 (09:00→20:46)
[2017-10-02] MEDS: DOXAZOSIN MESYLATE 1 MG TAB PO (09:00)
[2017-10-02] MEDS: SENOKOT S TAB PO ×2 (09:00→20:46)
[2017-10-02] MEDS: ADVAIR HFA 115/21MCG INHALER INH ×2 (09:00→21:22)
[2017-10-02] MEDS: ASCORBIC ACID 250 MG TAB PO ×2 (10:52→20:47)
[2017-10-02] MEDS: cloNIDine 0.1 MG TAB PO ×2 (10:52→20:47)
[2017-10-02] MEDS: POTASSIUM CHLORIDE 10 MEQ SR TABLET PO (10:53)
[2017-10-02] MEDS: PANTOPRAZOLE 40MG TAB (PROTONIX) PO (10:54)
[2017-10-02] MEDS: CARVedilol 12.5 MG TAB PO ×2 (10:55→20:47)
[2017-10-02] MEDS: NIFEdipine 60 MG XL TAB PO (10:56)
[2017-10-02] MEDS: CHECK TO SEE IF PATIENT IS RECEIVING DIALYSIS TODAY AND REFER TO THE VANCOMYCIN ORDER XX (16:00)
[2017-10-02] MEDS: VANCOMYCIN HCL 1,000 MG, VIAL MATE ADAPTER 1 EACH in D5W 250 ML IV (17:28)
[2017-10-02] MEDS ORDERED: IRON SUCROSE 100MG 5ML VIAL (J1756 PER 1MG) IV (19:45)
[2017-10-02] MEDS: PRAVASTATIN 20 MG TAB PO (20:47)
[2017-10-03] MEDS: IRON SUCROSE 400 MG in NS 250 ML IV (00:30)
[2017-10-03] MEDS: SLF 3 ML SYR IV ×3 (05:32→22:00)
[2017-10-03 05:33] LABS: BASO % 0.4 % (0.0-1.0); EOS # 0.1 10^3/uL (0.0-0.50); EOS % 1.6 % (0.0-3.0); HEMATOCRIT 26.4 % (42.0-52.0); HEMOGLOBIN 8.6 g/dl (13.5-17.5); IMMATURE GRANULOCYTE % 1.8 % (0-3.0); LYMPH # 0.9 10^3/uL (1.5-4.5); LYMPH % 15.9 % (24.0-44.0); MEAN CORPUSCULAR HEMOGLOBIN 30.2 pg (27.0-33.0); MEAN CORPUSCULAR HGB CONC 32.6 g/dl (32.0-36.5); MEAN CORPUSCULAR VOLUME 92.6 fl (80.0-96.0); MONO # 0.8 10^3/uL (0.0-0.8); MONO % 14.1 % (0.0-5.0); NEUTROPHILS # 3.8 10^3/uL (1.8-7.7); NEUTROPHILS % 66.2 % (36.0-66.0); PLATELET COUNT, AUTOMATED 188 10^3/uL (150-450); RED BLOOD COUNT 2.85 10^6/uL (4.30-6.10); RED CELL DISTRIBUTION WIDTH 16.8 % (11.5-14.5); WHITE BLOOD COUNT 5.7 10^3/uL (4.0-10.0)
[2017-10-03 05:52] LABS: ANION GAP 7 MEQ/L (8-16); BLOOD UREA NITROGEN 18 MG/DL (7-18); CALCIUM LEVEL 8.3 MG/DL (8.8-10.2); CARBON DIOXIDE LEVEL 30 MEQ/L (21-32); CHLORIDE LEVEL 99 MEQ/L (98-107); CREATININE FOR GFR 1.34 MG/DL (0.70-1.30); GLOMERULAR FILTRATION RATE 55.8 (>42); GLUCOSE, FASTING 98 MG/DL (70-100); POTASSIUM SERUM 3.2 MEQ/L (3.5-5.1); SODIUM LEVEL 136 MEQ/L (136-145)
[2017-10-03] MEDS: SENOKOT S TAB PO ×3 (09:00→21:00)
[2017-10-03] MEDS: BENZONATATE 100 MG CAP PO ×3 (09:03→21:00)
[2017-10-03] MEDS: cloNIDine 0.1 MG TAB PO ×2 (09:04→21:00)
[2017-10-03] MEDS: ASCORBIC ACID 250 MG TAB PO ×2 (09:04→21:00)
[2017-10-03] MEDS: NIFEdipine 60 MG XL TAB PO (09:04)
[2017-10-03] MEDS: PANTOPRAZOLE 40MG TAB (PROTONIX) PO (09:05)
[2017-10-03] MEDS: DOXAZOSIN MESYLATE 1 MG TAB PO (09:05)
[2017-10-03] MEDS: POTASSIUM CHLORIDE 10 MEQ SR TABLET PO (09:05)
[2017-10-03] MEDS: CARVedilol 12.5 MG TAB PO ×2 (09:07→21:00)
[2017-10-03] MEDS: ADVAIR HFA 115/21MCG INHALER INH ×2 (09:55→20:54)
[2017-10-03] MEDS ORDERED: ISOVUE-300 61% 50ML VIAL (Q9967) As Ordered (15:55)
[2017-10-03] MEDS ORDERED: HEPARIN 1,000 UNITS/ML 10ML VIAL (FOR RADIOLOGY& DIALYSIS ONLY) As Ordered (15:55)
[2017-10-03] MEDS: CHECK TO SEE IF PATIENT IS RECEIVING DIALYSIS TODAY AND REFER TO THE VANCOMYCIN ORDER XX (16:00)
[2017-10-03] MEDS ORDERED: ALTEPLASE 2 MG/2 ML VIAL (J2997 PER 1MG) As Ordered (16:44)
[2017-10-03] MEDS ORDERED: ONDANSETRON 4MG/2ML VIAL (J2405) As Ordered (17:17)
[2017-10-03] MEDS: ACETAMINOPHEN TAB 650MG DOSE (2X325MG) PO (18:13)
[2017-10-03] MEDS: PRAVASTATIN 20 MG TAB PO (21:00)
[2017-10-04 03:49] LABS: BASO % 0.4 % (0.0-1.0); EOS # 0.1 10^3/uL (0.0-0.50); EOS % 1.1 % (0.0-3.0); HEMATOCRIT 29.2 % (42.0-52.0); HEMOGLOBIN 9.5 g/dl (13.5-17.5); IMMATURE GRANULOCYTE % 2.2 % (0-3.0); LYMPH % 14.5 % (24.0-44.0); MEAN CORPUSCULAR HEMOGLOBIN 30.3 pg (27.0-33.0); MEAN CORPUSCULAR HGB CONC 32.5 g/dl (32.0-36.5); MONO # 0.9 10^3/uL (0.0-0.8); MONO % 12.5 % (0.0-5.0); NEUTROPHILS # 4.8 10^3/uL (1.8-7.7); NEUTROPHILS % 69.3 % (36.0-66.0); PLATELET COUNT, AUTOMATED 225 10^3/uL (150-450); RED BLOOD COUNT 3.14 10^6/uL (4.30-6.10)
[2017-10-04 04:05] LABS: ANION GAP 9 MEQ/L (8-16); BLOOD UREA NITROGEN 18 MG/DL (7-18); CALCIUM LEVEL 8.7 MG/DL (8.8-10.2); CARBON DIOXIDE LEVEL 27 MEQ/L (21-32); CHLORIDE LEVEL 102 MEQ/L (98-107); CREATININE FOR GFR 1.29 MG/DL (0.70-1.30); GLOMERULAR FILTRATION RATE 58.3 (>42); GLUCOSE, FASTING 89 MG/DL (70-100); POTASSIUM SERUM 3.6 MEQ/L (3.5-5.1); SODIUM LEVEL 138 MEQ/L (136-145)
[2017-10-04] MEDS: SLF 3 ML SYR IV ×3 (04:44→21:04)
[2017-10-04] MEDS: ADVAIR HFA 115/21MCG INHALER INH ×2 (08:15→21:13)
[2017-10-04] MEDS: SENOKOT S TAB PO ×4 (09:00→21:04)
[2017-10-04] MEDS: PANTOPRAZOLE 40MG TAB (PROTONIX) PO (09:02)
[2017-10-04] MEDS: cloNIDine 0.1 MG TAB PO ×2 (09:03→21:03)
[2017-10-04] MEDS: ASCORBIC ACID 250 MG TAB PO ×2 (09:03→21:02)
[2017-10-04] MEDS: BENZONATATE 100 MG CAP PO ×3 (09:04→21:02)
[2017-10-04] MEDS: CARVedilol 12.5 MG TAB PO ×2 (09:04→21:03)
[2017-10-04] MEDS: DOXAZOSIN MESYLATE 1 MG TAB PO (09:04)
[2017-10-04] MEDS: NIFEdipine 60 MG XL TAB PO (09:05)
[2017-10-04] MEDS: POTASSIUM CHLORIDE 10 MEQ SR TABLET PO (09:05)
[2017-10-04] MEDS: VANCOMYCIN HCL 1,000 MG, VIAL MATE ADAPTER 1 EACH in D5W 250 ML IV (11:04)
[2017-10-04] MEDS: PRAVASTATIN 20 MG TAB PO (21:02)
[2017-10-05 04:05] LABS: BASO % 0.6 % (0.0-1.0); EOS # 0.1 10^3/uL (0.0-0.50); EOS % 1.8 % (0.0-3.0); HEMOGLOBIN 8.8 g/dl (13.5-17.5); IMMATURE GRANULOCYTE % 2.2 % (0-3.0); LYMPH # 1.1 10^3/uL (1.5-4.5); LYMPH % 14.7 % (24.0-44.0); MEAN CORPUSCULAR HEMOGLOBIN 29.6 pg (27.0-33.0); MEAN CORPUSCULAR HGB CONC 32.6 g/dl (32.0-36.5); MEAN CORPUSCULAR VOLUME 90.9 fl (80.0-96.0); MONO # 1.2 10^3/uL (0.0-0.8); MONO % 16.9 % (0.0-5.0); NEUTROPHILS # 4.5 10^3/uL (1.8-7.7); NEUTROPHILS % 63.8 % (36.0-66.0); PLATELET COUNT, AUTOMATED 210 10^3/uL (150-450); RED BLOOD COUNT 2.97 10^6/uL (4.30-6.10); RED CELL DISTRIBUTION WIDTH 16.9 % (11.5-14.5); WHITE BLOOD COUNT 7.1 10^3/uL (4.0-10.0)
[2017-10-05 04:27] LABS: ANION GAP 8 MEQ/L (8-16); BLOOD UREA NITROGEN 19 MG/DL (7-18); CALCIUM LEVEL 8.3 MG/DL (8.8-10.2); CARBON DIOXIDE LEVEL 28 MEQ/L (21-32); CHLORIDE LEVEL 100 MEQ/L (98-107); CREATININE FOR GFR 1.46 MG/DL (0.70-1.30); GLOMERULAR FILTRATION RATE 50.5 (>42); GLUCOSE, FASTING 95 MG/DL (70-100); POTASSIUM SERUM 3.7 MEQ/L (3.5-5.1); SODIUM LEVEL 136 MEQ/L (136-145)
[2017-10-05] MEDS: SLF 3 ML SYR IV ×3 (05:05→20:36)
[2017-10-05] MEDS: ASCORBIC ACID 250 MG TAB PO ×2 (09:57→20:36)
[2017-10-05] MEDS: PANTOPRAZOLE 40MG TAB (PROTONIX) PO (09:58)
[2017-10-05] MEDS: BENZONATATE 100 MG CAP PO ×3 (09:58→20:35)
[2017-10-05] MEDS: CARVedilol 12.5 MG TAB PO ×2 (10:01→20:35)
[2017-10-05] MEDS: cloNIDine 0.1 MG TAB PO ×2 (10:01→20:35)
[2017-10-05] MEDS: SENOKOT S TAB PO ×2 (10:02→20:35)
[2017-10-05 11:12] LABS: VANCOMYCIN RANDOM 16.8 UG/ML
[2017-10-05] MEDS ORDERED: VANCOMYCIN HCL 1,000 MG, VIAL MATE ADAPTER 1 EACH in D5W 250 ML IV (12:00)
[2017-10-05] MEDS: DOXAZOSIN MESYLATE 1 MG TAB PO (12:55)
[2017-10-05] MEDS: NIFEdipine 60 MG XL TAB PO (12:55)
[2017-10-05] MEDS: ADVAIR HFA 115/21MCG INHALER INH ×2 (14:11→20:46)
[2017-10-05] MEDS: PRAVASTATIN 20 MG TAB PO (20:35)
[2017-10-06 06:12] LABS: BASO # 0.1 10^3/uL (0.0-0.2); BASO % 0.7 % (0.0-1.0); EOS # 0.1 10^3/uL (0.0-0.50); EOS % 1.3 % (0.0-3.0); HEMATOCRIT 27.6 % (42.0-52.0); HEMOGLOBIN 8.9 g/dl (13.5-17.5); IMMATURE GRANULOCYTE % 2.7 % (0-3.0); LYMPH # 0.8 10^3/uL (1.5-4.5); MEAN CORPUSCULAR HEMOGLOBIN 30.4 pg (27.0-33.0); MEAN CORPUSCULAR HGB CONC 32.2 g/dl (32.0-36.5); MEAN CORPUSCULAR VOLUME 94.2 fl (80.0-96.0); MONO # 1.1 10^3/uL (0.0-0.8); MONO % 13.8 % (0.0-5.0); NEUTROPHILS # 5.8 10^3/uL (1.8-7.7); NEUTROPHILS % 71.5 % (36.0-66.0); PLATELET COUNT, AUTOMATED 208 10^3/uL (150-450); RED BLOOD COUNT 2.93 10^6/uL (4.30-6.10); RED CELL DISTRIBUTION WIDTH 17.1 % (11.5-14.5); WHITE BLOOD COUNT 8.2 10^3/uL (4.0-10.0)
[2017-10-06 06:28] LABS: ANION GAP 9 MEQ/L (8-16); BLOOD UREA NITROGEN 23 MG/DL (7-18); CALCIUM LEVEL 8.4 MG/DL (8.8-10.2); CARBON DIOXIDE LEVEL 27 MEQ/L (21-32); CHLORIDE LEVEL 102 MEQ/L (98-107); CREATININE FOR GFR 1.38 MG/DL (0.70-1.30); GLOMERULAR FILTRATION RATE 53.9 (>42); GLUCOSE, FASTING 121 MG/DL (70-100); POTASSIUM SERUM 3.1 MEQ/L (3.5-5.1); SODIUM LEVEL 138 MEQ/L (136-145)
[2017-10-06] MEDS: SLF 3 ML SYR IV (06:39)
[2017-10-06] MEDS: ADVAIR HFA 115/21MCG INHALER INH (07:43)
[2017-10-06] MEDS: BENZONATATE 100 MG CAP PO (09:19)
[2017-10-06] MEDS: ASPIRIN 81 MG ENTERIC TAB PO (09:19)
[2017-10-06] MEDS: SENOKOT S TAB PO (09:19)
[2017-10-06] MEDS: PANTOPRAZOLE 40MG TAB (PROTONIX) PO (09:19)
[2017-10-06] MEDS: ASCORBIC ACID 250 MG TAB PO (09:19)
[2017-10-06] MEDS: cloNIDine 0.1 MG TAB PO (09:22)
[2017-10-06] MEDS: NIFEdipine 60 MG XL TAB PO (09:22)
[2017-10-06] MEDS: CARVedilol 12.5 MG TAB PO (09:22)
[2017-10-06] MEDS: DOXAZOSIN MESYLATE 1 MG TAB PO (09:23)
[2017-10-06] MEDS: POTASSIUM CHLORIDE 10 MEQ SR TABLET PO (09:24)
[2017-10-06] MEDS ORDERED: POTASSIUM CHLORIDE 10 MEQ SR TABLET PO (10:00)
[2017-10-07] MEDS ORDERED: POTASSIUM CHLORIDE 10 MEQ SR TABLET PO (09:00)
[2017-10-09 00:07] LABS: ALDOS/RENIN RATIO 1.6 (0.0-30.0); RENIN ACTIVITY 6.981 ng/mL/hr (0.167-5.380)
[2017-10-14 00:06] LABS: OXALATE 13.6 umol/L (<=1.9)
== END 2017-10-06 12:25 | disposition home or self-care (01) | DRG 673 ==
LOC: M MSPAV 10-05 07:22 → M PCU 09-30 20:19
PROC: 5A1D70Z Performance of Urinary Filtration, Intermittent, Less than 6 Hours Per Day (ICD-10-PCS; principal; 2017-09-26 14:06)
PROC: 05PY33Z Removal of Infusion Device from Upper Vein, Percutaneous Approach (ICD-10-PCS; 2017-09-26 14:06)
PROC: 047 Lower Arteries, Dilation (ICD-10-PCS; 2017-09-26 14:06)
PROC: 3E05317 Introduction of Other Thrombolytic into Peripheral Artery, Percutaneous Approach (ICD-10-PCS; 2017-09-26 14:06)
PROC: B416YZZ Fluoroscopy of Right Renal Artery using Other Contrast (ICD-10-PCS; 2017-09-26 14:06)
DX: N17.9 Acute kidney failure, unspecified (principal); I50.33 Acute on chronic diastolic (congestive) heart failure; I13.2 Hypertensive heart and chronic kidney disease with heart failure and with stage 5 chronic kidney disease, or end stage renal disease; T82.7XXA Infection and inflammatory reaction due to other cardiac and vascular devices, implants and grafts, initial encounter; N18.6 End stage renal disease; I48.91 Unspecified atrial fibrillation; J44.9 Chronic obstructive pulmonary disease, unspecified; I73.9 Peripheral vascular disease, unspecified; I65.22 Occlusion and stenosis of left carotid artery; G47.33 Obstructive sleep apnea (adult) (pediatric); D63.1 Anemia in chronic kidney disease; M10.9 Gout, unspecified; N40.0 Benign prostatic hyperplasia without lower urinary tract symptoms; I70.1 Atherosclerosis of renal artery; R50.9 Fever, unspecified; I34.0 Nonrheumatic mitral (valve) insufficiency; E78.5 Hyperlipidemia, unspecified; Z99.2 Dependence on renal dialysis; Z95.3 Presence of xenogenic heart valve; Z91.013 Allergy to seafood; Z95.1 Presence of aortocoronary bypass graft; Z88.8 Allergy status to other drugs, medicaments and biological substances; Z95.0 Presence of cardiac pacemaker; Z87.891 Personal history of nicotine dependence; Z79.899 Other long term (current) drug therapy; Z95.820 Peripheral vascular angioplasty status with implants and grafts; Y83.1 Surgical operation with implant of artificial internal device as the cause of abnormal reaction of the patient, or of later complication, without mention of misadventure at the time of the procedure

== ENCOUNTER → 2018-02-04 | Outpatient (CLI) | payer OTHER | LOC: M SMT 11:05 | DX: R06.02 Shortness of breath (principal); Z95.0 Presence of cardiac pacemaker; Z95.1 Presence of aortocoronary bypass graft; J84.10 Pulmonary fibrosis, unspecified | CPT/HCPCS: 71046 ==

== ENCOUNTER → 2018-02-06 | Outpatient (REF) | payer OTHER ==
[2018-02-06 19:10] LABS: FERRITIN 81 NG/ML (26-388); IRON (FE) 51 UG/DL (65-175); PERCENT SATURATION 14.8 % (19.7-50.0); TOTAL IRON BINDING CAPACITY 344 UG/DL (250-450)
== END ==
LOC: M LAB REF 17:18
DX: D64.9 Anemia, unspecified (principal)
CPT/HCPCS: 83550

== ENCOUNTER → 2018-04-08 | Outpatient (REF) | payer OTHER ==
[2018-04-11 00:06] LABS: G6PD2 3.45 x10E6/uL (4.14-5.80); G6PD3 434 (146-376)
== END ==
LOC: M LAB REF 04-09 13:35
DX: M1A.30X0 Chronic gout due to renal impairment, unspecified site, without tophus (tophi) (principal)
CPT/HCPCS: 82955

== ENCOUNTER 2018-05-20 10:52 | Outpatient (CLI) | payer OTHER ==
[2018-05-20] MEDS: ACETAMINOPHEN 500 MG TAB PO (11:24)
[2018-05-20] MEDS: HYDROCORTISONE 100 MG/2 ML VIAL (J1720) IV (11:25)
[2018-05-20] MEDS: FEXOFENADINE 60 MG TAB PO (11:26)
[2018-05-20] MEDS: NS IV (11:52)
[2018-05-20] MEDS: [UNRECOGNIZED DRUG - OTHER] IV (11:52)
== END 2018-05-20 15:05 ==
LOC: M INFU 10:52
DX: M1A.30X0 Chronic gout due to renal impairment, unspecified site, without tophus (tophi) (principal); N18.3 Chronic kidney disease, stage 3 (moderate); I15.0 Renovascular hypertension; I70.1 Atherosclerosis of renal artery; I48.0 Paroxysmal atrial fibrillation; D50.9 Iron deficiency anemia, unspecified; Z79.899 Other long term (current) drug therapy; Z91.013 Allergy to seafood; Z88.8 Allergy status to other drugs, medicaments and biological substances
CPT/HCPCS: J1720

== ENCOUNTER 2018-06-03 12:14 | Outpatient (CLI) | payer OTHER ==
[2018-06-03] MEDS: HYDROCORTISONE 100 MG/2 ML VIAL (J1720) IV (13:40)
[2018-06-03] MEDS: FEXOFENADINE 60 MG TAB PO (13:41)
[2018-06-03] MEDS: ACETAMINOPHEN 500 MG TAB PO (13:41)
[2018-06-03] MEDS: [UNRECOGNIZED DRUG - OTHER] IV (14:00)
[2018-06-03] MEDS: NS IV (14:00)
== END 2018-06-03 17:15 | disposition home or self-care (01) ==
LOC: M INFU 12:14
DX: M1A.30X0 Chronic gout due to renal impairment, unspecified site, without tophus (tophi) (principal); N18.3 Chronic kidney disease, stage 3 (moderate); I15.0 Renovascular hypertension; I70.1 Atherosclerosis of renal artery; I48.0 Paroxysmal atrial fibrillation; D50.9 Iron deficiency anemia, unspecified; Z79.899 Other long term (current) drug therapy; Z88.8 Allergy status to other drugs, medicaments and biological substances
CPT/HCPCS: J1720

== ENCOUNTER 2018-06-17 06:16 | Outpatient (CLI) | payer OTHER ==
[~2018-06-17] VITALS: Ht 165.1 cm; Wt 83.6 kg
[~2018-06-17 06:16] MED LIST changes: -ACETAMINOPHEN TAB 650MG DOSE (2X325MG) PO; +ADV250INH INH; +ALBU17IN2 INH; +ALLO100T PO; +AMLO10TA4 PO; +AMLO5TAB4 PO; +ASCO25TA PO; +CARV12.5 PO; +CEPA1LOZ2 PO; +CLON0.2T PO; +CLONI1TA PO; +COLC1TAB14 PO; +DEMA20TA6 PO; +DOXA1TAB42 PO; +FERR325T16 PO; +FERR32TA PO; +FLOM0.4C39 PO; +FURO40TA2 PO; +FURO80TA2 PO; +FURO8SOL PO; +HYDR-3363 PO; +HYDR-3910 PO; +HYDR25TA PO; +IPRA0.00 INH; +KLOR10TA76 PO; +KLOR20TA42 PO; +NIFE15TA PO; +NIFE60TA6 PO; +OMEP20CA3 PO; -ONDANSETRON 4MG/2ML VIAL (J2405) IV; +PANT40TA3 PO; +PRAV40TA2 PO; +PROVENTIL INH; +SENN1TAB2 PO; +SIMV20TA2 PO; +SODI650T PO; +TERA2CAP3 PO; +TORS20TA2 PO; +ZYLO300T6 PO; +[UNRECOGNIZED DRUG - OTHER]; +[UNRECOGNIZED DRUG - OTHER] IV
[2018-06-17] MEDS ORDERED: FEXOFENADINE 60 MG TAB PO ONE (11:00)
[2018-06-17] MEDS ORDERED: NS IV ONE (11:00)
[2018-06-17] MEDS ORDERED: ACETAMINOPHEN 500 MG TAB PO ONE (11:00)
[2018-06-17] MEDS ORDERED: HYDROCORTISONE 100 MG/2 ML VIAL (J1720) IV ONE (11:00)
[2018-06-17] MEDS ORDERED: [UNRECOGNIZED DRUG - OTHER] IV ONE (11:00)
[2018-06-17 11:20] VITALS: BP 146/68
[2018-06-17 13:15] VITALS: BP_SYST 170; BP_SYST 190; BP_DIAS 62; BP_DIAS 77
[2018-06-17 14:35] VITALS: BP 160/70
== END 2018-06-17 14:35 | disposition home or self-care (01) ==
LOC: M INFU 06:16
PROVIDERS: ATTEND Internal Medicine Nephrology
DX: M10.9 Gout, unspecified (principal); I70.1 Atherosclerosis of renal artery; I10 Essential (primary) hypertension; Z98.890 Other specified postprocedural states
CPT/HCPCS: 76775; 93975; 96365; 96366; 96375; J1720; J2507

== ENCOUNTER → 2018-06-17 | Outpatient (CLI) | payer OTHER | LOC: M RAD 06:14 | DX: I70.1 Atherosclerosis of renal artery (principal); I10 Essential (primary) hypertension; Z98.890 Other specified postprocedural states ==

== ENCOUNTER 2018-07-01 13:44 | Outpatient (CLI) | payer OTHER ==
[~2018-07-01] VITALS: Ht 165.1 cm; Wt 83.6 kg
[~2018-07-01 13:44] MED LIST changes: -AMLO10TA4 PO; +AMLO10TA5 PO; -AMLO5TAB4 PO; +AMLO5TAB6 PO
[2018-07-01 14:00] VITALS: BP 164/70
[2018-07-01] MEDS ORDERED: [UNRECOGNIZED DRUG - OTHER] IV ONE (15:00)
[2018-07-01] MEDS ORDERED: HYDROCORTISONE 100 MG/2 ML VIAL (J1720) IV ONE (15:00)
[2018-07-01] MEDS ORDERED: FEXOFENADINE 60 MG TAB PO ONE (15:00)
[2018-07-01] MEDS ORDERED: ACETAMINOPHEN 500 MG TAB PO ONE (15:00)
[2018-07-01] MEDS ORDERED: NS IV ONE (15:00)
[2018-07-01 15:45] VITALS: BP 158/64
[2018-07-01 17:00] VITALS: BP 176/74
[2018-07-01 17:30] VITALS: BP 162/74
== END 2018-07-01 17:30 | disposition home or self-care (01) ==
LOC: M INFU 13:44
PROVIDERS: ATTEND Internal Medicine Nephrology
DX: M10.9 Gout, unspecified (principal); Z88.8 Allergy status to other drugs, medicaments and biological substances; Z91.013 Allergy to seafood
CPT/HCPCS: 96365; 96366; 96375; J1720; J2507

== ENCOUNTER → 2018-09-07 | Outpatient (CLI) | payer MEDICARE ==
--- NOTE | 2018-09-07 18:24 | REP ---
Clinical: Abnormal lung field findings . Comparison: 02/04/2018 . Technique: PA and lateral. Findings: The mediastinum and cardiac silhouette are stable. Prior sternotomy, CABG and pacemaker again noted. Right axillary node dissection. The lung kovacs demonstrate chronic stable changes without acute consolidation, effusion, or pneumothorax. The skeletal structures are intact and normal. Impression: 1. No acute cardiopulmonary process. Electronically Signed by John Luna MD 09/07/2018 06:15 P
== END ==
LOC: M SMT 10:28
PROVIDERS: ATTEND Internal Medicine Pulmonary Disease
DX: R91.8 Other nonspecific abnormal finding of lung field (principal)

== ENCOUNTER → 2018-09-10 | Outpatient (CLI) | payer MEDICARE ==
[~2018-09-10] MED LIST changes: -ASCO25TA PO; +HEPARIN 1,000 UNITS/ML 10ML VIAL (FOR RADIOLOGY& DIALYSIS ONLY) As Ordered ONE; +ISOVUE-300 61% 50ML VIAL (Q9967) As Ordered ONE; +LIDOCAINE 2% MDV 20 ML VIAL As Ordered ONE; +MIDAZOLAM INJ 2 MG/2 ML VIAL (J2250) As Ordered ONE; +PROTAMINE SULF INJ 50 MG/5 ML VIAL (J2720) As Ordered ONE; -SENN1TAB2 PO; +SENN1TAB40 PO; +VITA1TAB23 PO; +fentaNYL 100 MCG/2 ML INJECTION (J3010) As Ordered ONE
[2018-09-10 07:06] LABS: HEMATOCRIT 37.5 % (42.0-52.0); HEMOGLOBIN 11.8 g/dl (13.5-17.5); MEAN CORPUSCULAR HEMOGLOBIN 30.2 pg (27.0-33.0); MEAN CORPUSCULAR HGB CONC 31.5 g/dl (32.0-36.5); MEAN CORPUSCULAR VOLUME 95.9 fl (80.0-96.0); PLATELET COUNT, AUTOMATED 131 10^3/uL (150-450); RED BLOOD COUNT 3.91 10^6/uL (4.30-6.10); WHITE BLOOD COUNT 5.8 10^3/uL (4.0-10.0)
[2018-09-10 07:36] LABS: CALCIUM LEVEL 8.3 MG/DL (8.8-10.2); CREATININE FOR GFR 1.61 MG/DL (0.70-1.30); POTASSIUM SERUM 3.7 MEQ/L (3.5-5.1)
--- NOTE | 2018-10-07 08:15 | REPIR ---
DATE OF PROCEDURE: 09/10/2018 ATTENDING SURGEON: Dr. Ines Caldwell ASSISTANTS: Hilary Sykes and Alisa Davis. PREOPERATIVE DIAGNOSIS: Renal artery stenosis, chronic renal insufficiency. POSTOPERATIVE DIAGNOSES: Renal artery stenosis, chronic renal insufficiency. PROCEDURE: Ultrasound-guided left brachial artery cannulation, selective right renal artery catheter placement with angiogram and pressure measurements, right renal artery angioplasty with a 6 x 40 mm balloon, Mynx closure of the left brachial artery arteriotomy. INDICATION: The patient is a 72-year-old male with previous angioplasty and stenting of the right renal artery with significant improvement in his renal function who now underwent ultrasound showing questionable stenosis in the right renal artery stent. The patient will undergo an angiogram with possible angioplasty stent and/or atherectomy. Risks, benefits, and alternative treatment options were discussed with the patient. ANESTHESIA: Local with 3 mL of 2% lidocaine. FLUOROSCOPY TIME: 4.6 minutes. CONTRAST: 0.5 mL of Isovue-300. HEPARIN: 7000 units. PROTAMINE: 50 mg. COMPLICATIONS: None. DRAINS: None. SPECIMENS: None. IMPLANT: Left brachial artery arteriotomy closure with a Mynx closure device. DESCRIPTION OF PROCEDURE: The patient was taken to the angiography suite, placed on the angiography room table and then prepped and draped in a standard surgical fashion. The left brachial artery was evaluated with ultrasound and noted to be widely patent, easily compressible and free of thrombus. Ultrasound was used guide cannulation of the left brachial artery with real-time concurrent visualization of the entry of the needle into the brachial artery with a hard copy image preserved. The micropuncture wire was advanced through the micropuncture needle, which was upsized to a micropuncture sheath. The catheter was then advanced through the brachial artery, axillary artery, subclavian artery and into the descending thoracic aorta and the right renal artery was cannulated and angiogram performed showing approximate 60% stenosis at the origin of the right renal artery stent. The right renal artery was then angioplastied with a 6 x 40 balloon with a completion angiogram showing resolution of the stenosis. Pressure measurements showed improved flow into the renal artery with no residual gradient remaining at the completion of the angioplasty. Catheters and wires were then removed. A Mynx closure device was used close the arteriotomy in the left brachial artery with an additional 10 minutes of adjunctive pressure applied for hemostasis. Dressings were then applied. The patient tolerated procedure well. All instrument, sponge and needle counts were correct at the end of the case. There were no complications. Dr. Caldwell was present for directed the entire case. The patient was transferred to the holding and subsequently discharged in stable condition. RADIOLOGIC SUPERVISION INTERPRETATION: The initial radial artery angiogram showed stenosis in the right renal artery. The right renal artery angioplastied with a 6 x 40 mm balloon, after which the completion angiogram showed no residual stenosis. Pressure measurements were also obtained showing a pressure gradient prior to the intervention and no residual pressure gradient remaining after the angioplasty. A Mynx closure device was used to close the arteriotomy in the left brachial artery.
== END | disposition home or self-care (01) ==
LOC: M IRPRO 06:27
PROVIDERS: ATTEND Surgery Vascular Surgery
DX: T82.856A Stenosis of peripheral vascular stent, initial encounter (principal); N18.9 Chronic kidney disease, unspecified; I70.1 Atherosclerosis of renal artery
CPT/HCPCS: 36251; 37246; 76937; 80048; 85027; C1760; C1769; C1887; C1894; J2720; Q9967

== ENCOUNTER → 2018-11-11 | Outpatient (CLI) | payer MEDICARE ==
[~2018-11-11] MED LIST changes: -HEPARIN 1,000 UNITS/ML 10ML VIAL (FOR RADIOLOGY& DIALYSIS ONLY) As Ordered ONE; -ISOVUE-300 61% 50ML VIAL (Q9967) As Ordered ONE; -LIDOCAINE 2% MDV 20 ML VIAL As Ordered ONE; -MIDAZOLAM INJ 2 MG/2 ML VIAL (J2250) As Ordered ONE; -PROTAMINE SULF INJ 50 MG/5 ML VIAL (J2720) As Ordered ONE; -fentaNYL 100 MCG/2 ML INJECTION (J3010) As Ordered ONE
--- NOTE | 2018-11-11 20:21 | REP ---
Clinical: Hypertension and chronic medical renal disease. Technique: Maddox scale and color Doppler evaluation of the kidneys and renal vasculature using curved array transducer. Findings: The kidneys are normal in size and reniform shape demonstrating increased parenchymal echogenicity with cortical thinning and increased central sinus fat. Findings are consistent with chronic medical renal disease. The right kidney measures 12.4 x 6.3 x 5.5 cm without hydronephrosis or nephrolithiasis. The left kidney measures 11.5 x 4.7 x 4.1 cm and includes 2.0 x 1.6 x 1.9 cm simple lower pole cyst without hydronephrosis. Bladder measures 11.3 x 9.4 x 6.4 cm (358 ml) and appears normal. Color Doppler evaluation of the renal vasculature demonstrates normal arterial wave patterns, velocities, renal aortic ratios, resistive indices and the acceleration time. No sonographic evidence for renal arterial stenosis noted. Renal vein is patent. Right Kidney: Peak arterial velocity: 227 cm/sec . Renal aortic ratio: 2.4 . Resistive indices: 0.80 - 0.81 . Acceleration times: 0.02 - 0.03 . Left kidney: Peak arterial velocity: 150.7 . Renal aortic ratio: 1.5 . Resistive indices: 0.70 - 0.80 . Acceleration times: 0.06 - 0.08. Impression: 1. Findings consistent with chronic medical renal disease. 2. Doppler interrogation appears improved when compared to prior examination, but with continued evidence to suggest mild/moderate stenosis of the mid right renal artery (but with improved renal aortic ratio) and possible mild stenosis involving the left main renal artery which is incompletely evaluated at its origin. I Electronically Signed by John Luna MD 11/11/2018 08:12 P
== END ==
LOC: M RAD 08:44
PROVIDERS: ATTEND Surgery Vascular Surgery
DX: I15.0 Renovascular hypertension (principal)

== ENCOUNTER → 2019-06-16 | Outpatient (CLI) | payer MEDICARE ==
[~2019-06-16] MED LIST changes: +OMEP-172 PO; -OMEP20CA3 PO; +SENN-53 PO; -SENN1TAB40 PO; -SIMV20TA2 PO; +SIMV20TA22 PO
--- NOTE | 2019-06-16 10:29 | REP ---
RENAL ULTRASOUND WITH DUPLEX DOPPLER RENAL ARTERY EVALUATION: Real-time sonographic evaluation of the kidneys performed. Left kidney is smaller than the right. Right kidney measures 13.2 x 4.1 x 5.7 cm and left kidney 10.7 x 4.9 x 4.2 cm. There is no hydronephrosis bilaterally. Cyst is again seen in the left lower pole 2.3 x 1.6 x 1.7 cm. There is an adjacent cortical cyst 6.0 mm in diameter and another in the left upper pole 4.0 mm in diameter. Urinary bladder is empty. Real-time ultrasound evaluation and duplex Doppler interrogation of renal arteries performed bilaterally. Bowel gas obscures the main renal arteries. Duplex Doppler evaluation of the intrarenal arteries demonstrates resistive indices of the right kidney to range between 0.81 and 0.92 and accelerations ranging between 0.03 and 0.04. On the left resistive indices range between 0.061 and 0.66 and acceleration times range between 0.12 and 0.13. The left acceleration times have increased compared to the prior study. Left intrarenal arteries demonstrate tardus parvus waveforms. Findings suggest main left renal artery stenosis. There is no definite evidence for right renal artery stenosis. IMPRESSION: No hydronephrosis. Left renal cyst. Main renal arteries could not be visualized due to patient body habitus and bowel gas. No secondary signs of right renal artery stenosis. There are signs suggesting left renal artery stenosis. Unreviewed
== END ==
LOC: M RAD 07:32
PROVIDERS: ATTEND Physician Assistant
DX: I70.1 Atherosclerosis of renal artery (principal)

== ENCOUNTER → 2019-08-26 | Outpatient (CLI) | payer MEDICARE ==
[~2019-08-26] MED LIST changes: +ACETAMINOPHEN 325 MG TAB As Ordered ONE; +ACETAMINOPHEN 325 MG TAB PO PRN; +ACETAMINOPHEN TAB 650MG DOSE (2X325MG) PO PRN; +CLOP75TA2 PO; +CLOPIDOGREL 75 MG TAB As Ordered ONE; +CLOPIDOGREL 75 MG TAB PO ONE; +HEPARIN 1,000 UNITS/ML 10ML VIAL (FOR RADIOLOGY& DIALYSIS ONLY)(J1644-10) As Ordered ONE; +IPRATROPIUM 0.5MG/ALBUTEROL 2.5MG INH SOL UD 3ML (DUONEB)(J7620) NEB ONE; +ISOVUE-300 61% 50ML VIAL (Q9967) As Ordered ONE; +LIDOCAINE 1% MDV 20ML VIAL As Ordered ONE; +MIDAZOLAM INJ 2 MG/2 ML VIAL (J2250) As Ordered ONE; +NIFE1TAB51 PO; -NIFE60TA6 PO; -OMEP-172 PO; +OMEP1CAP73 PO; +ceFAZolin 1GM INJ (J0690 PER 500MG) As Ordered ONE; +diazePAM 5 MG TAB As Ordered ONE; +diazePAM 5 MG TAB PO ONE; +fentaNYL 100 MCG/2 ML INJECTION (J3010) As Ordered ONE
[2019-08-26 09:20] LABS: HEMATOCRIT 36.3 % (42.0-52.0); HEMOGLOBIN 11.2 g/dl (13.5-17.5); MEAN CORPUSCULAR HEMOGLOBIN 29.7 pg (27.0-33.0); MEAN CORPUSCULAR HGB CONC 30.9 g/dl (32.0-36.5); MEAN CORPUSCULAR VOLUME 96.3 fl (80.0-96.0); PLATELET COUNT, AUTOMATED 139 10^3/uL (150-450); RED BLOOD COUNT 3.77 10^6/uL (4.30-6.10); WHITE BLOOD COUNT 6.5 10^3/uL (4.0-10.0)
[2019-08-26 09:47] LABS: CALCIUM LEVEL 8.8 MG/DL (8.8-10.2); CREATININE FOR GFR 1.49 MG/DL (0.70-1.30); GLOMERULAR FILTRATION RATE 49.1 (>42); POTASSIUM SERUM 4.3 MEQ/L (3.5-5.1)
--- NOTE | 2019-08-26 12:45 | ROOPDOC ---
[facility] Report Of Operation Report of Operation DATE OF PROCEDURE: 08/26/19 PREPROCEDURE DIAGNOSES: Hypertension, left renal artery stenosis POSTPROCEDURE DIAGNOSES: Same PROCEDURE: 1. Ultrasound-guided access right common femoral artery 2. Aortogram and renal arteriogram with selection left renal artery 3. Predilation angioplasty after renal artery with 3 x 40 Pérez balloon 4. Stents left renal artery with 2 (6 x 19) expressed stents 5. Completion arteriograms 6. Mynx closure right common femoral artery SURGEON: Ventura Swann MD ANESTHESIA: Local anesthesia 6 mL lidocaine. Moderate intravenous conscious sedation was supervised by Dr. Swann. The patient was independent only monitored by registered nurse is under the department of radiology using automated blood pressure, EKG, and pulse oximetry. The detailed sedation record is permanently stored in the hospital information system. The following is the brief sedation record: Start time 11:15, stop time 12:26, fentanyl 100 g IV, Versed 1 mg IV, heparin 5000 units IV, Ancef 1 g IV. INDICATION FOR PROCEDURE: This is a very pleasant 73-year-old gentleman with severe hypertension on 4 antihypertensive medications and still very labile blood pressure. He has a history of renal artery stenosis on the right, and underwent stenting of the right renal artery with Dr. Caldwell in the past. Following this, the patient has significant improvement in his blood pressure, but lately it is started to be increasingly become more labile and harder to control despite multiple medications. He underwent another renal artery duplex, and was noted to have tardus parvus waveforms in the left renal artery suggestive of renal artery stenosis. The right renal artery on ultrasound was noted to be patent within the stents. Risks benefits alternatives to renal arteriogram potential intervention were explained to the patient he was agreeable to proceed. Informed consent was obtained. INTERPRETATION: 1. Aortas widely patent and there is excellent flow into the right renal artery and the right renal stents are patent. 2. The left renal artery is ectatic at its origin but patent, but there is a bulky heavily calcified plaque about 5 mm from the origin, and this includes the lumen almost entirely. There is about a 95-99% stenosis. 3. After predilation of the vessel with a 3 mm balloon, there was a lumen suitable for advancement of the stent. 4. After stenting of the renal artery, there is widely patent flow through the left renal artery with less than 10% residual stenosis. No distal embolization is noted, no extravasation or dissection is noted. REPORT OF OPERATION: The patient was brought to the angiographic suite in stable condition and placed supine on the fluoroscopic table. His bilateral groins were prepped and draped in a sterile fashion. A timeout was performed. Sedation was administered without complication. Local anesthesia was a corsets salesperson to the skin and subcutaneous tissue over the right common femoral artery and a microneedle was used to access the artery under ultrasound guidance. A wire was passed through this access under fluoroscopic guidance and the needle was removed. The patient had a large amount of calcium in the common femoral artery and he was challenging to place any kind sheath through the calcium. Eventually, we were able to place a stiff micro-sheath and through this access was exchanged for an O35 wire. We then placed a 4 [place] sheath over the wire using a Seldinger technique and flushed the sheath with saline. We then upsized to a 5 [place] sheath, and eventually upsized to a destination angled 6 [place] sheath with the tip at the renal ostium on the left. The infusion catheter was advanced over the wire into the suprarenal aorta. Aortograms were performed. Please interpretation above. We then utilized the infusion catheter and Glidewire to access the left renal artery. The catheter would not advance past the ostium of the left renal artery due to heavy plaque. A left renal arteriogram was performed. Please interpretation above. 5000 units of heparin was given allowed to circulate. We then were able to pass a crossing catheter over the O35 wire into the left renal artery past the near occlusion. We placed an 018 wire with an atraumatic tip through this access and removed the crossing catheter. We attempted to predilate the near occlusion in the left renal artery with a 3 mm [place] balloon, but the stenosis was so tight that the balloon would not pass. We then placed an 018 [place] over the wire, in order to predilate for Pérez balloon placement. We also exchange the wire for a longer wire. We then passed a 3 x 40 Pérez balloon over the wire and predilated the stenosis for a two-minute inflation. Following this, there still was not much of the lumen present and I wasn't sure I could safely past the stent, so we did a second two-minute inflation. Completion arteriogram showed there was an improvement in the luminal diameter and that we could safely past the stent following the second inflation. We then advanced a 6 x 18 balloon expandable stent across the heaviest area of plaque. The stent was inflated with less than 10% residual stenosis, persistent despite high atmospheres pressure due to the bulky calcified nature of the plaque. Following this, I felt there was still enough luminal irregularity in the proximal renal artery, and thus a second 6 x 18 balloon expandable stent was deployed with an overlap in the existing stent and slightly into the aorta. We inflated this to flare out the end of the stent into the aorta and to expand the proximal vessel. Following this, there was widely patent flow through the left renal artery to the kidney. No significant residual stenosis was noted. No extravasation or embolization was noted, no dissections were noted. We flushed with copious amounts of heparinized saline after each contrast injection and at the conclusion of the case. We then exchange the sheath for a short 6 Kenyan sheath over the wire and then placed a Mynx closure device with good hemostasis. Pressure was held for 10 minutes and sterile dressings were applied. The patient was taken to recovery in stable condition. He tolerated the procedure and the sedation well. ESTIMATED BLOOD LOSS: Approximately 15 mL. COMPLICATIONS: None. PLAN: We will start the patient on Plavix, first dose today and recovery. He will need to be on Plavix for 60 days postop placement. He will need to follow up with Dr. Osuna and Dr. Jean-Baptiste regarding antihypertensive medications. Hopefully the improvement in renal artery flow will help with control of his blood pressure. He can resume his home medications and diet as tolerated. We'll see him back in a week to check his groin access site and see how he is doing overall. VENTURA SWANN MD Aug 26, 2019 12:45
[2019-08-26 16:38] VITALS: BP 154/84
== END ==
LOC: M IRPRO 07:54
PROVIDERS: ATTEND Surgery Vascular Surgery
DX: I70.1 Atherosclerosis of renal artery (principal); I10 Essential (primary) hypertension
CPT/HCPCS: 36245; 37236; 75625; 80048; 85027; 99152; 99153; C1725; C1760; C1769; C1876; C1887; C1894; J0690; J1644; J2250; J3010; Q9967

== ENCOUNTER → 2019-12-08 | Outpatient (CLI) | payer MEDICARE ==
[~2019-12-08] MED LIST changes: -ACETAMINOPHEN 325 MG TAB As Ordered ONE; -ACETAMINOPHEN 325 MG TAB PO PRN; -ACETAMINOPHEN TAB 650MG DOSE (2X325MG) PO PRN; -CLOPIDOGREL 75 MG TAB As Ordered ONE; -CLOPIDOGREL 75 MG TAB PO ONE; -HEPARIN 1,000 UNITS/ML 10ML VIAL (FOR RADIOLOGY& DIALYSIS ONLY)(J1644-10) As Ordered ONE; -IPRATROPIUM 0.5MG/ALBUTEROL 2.5MG INH SOL UD 3ML (DUONEB)(J7620) NEB ONE; -ISOVUE-300 61% 50ML VIAL (Q9967) As Ordered ONE; -LIDOCAINE 1% MDV 20ML VIAL As Ordered ONE; -MIDAZOLAM INJ 2 MG/2 ML VIAL (J2250) As Ordered ONE; -ceFAZolin 1GM INJ (J0690 PER 500MG) As Ordered ONE; -diazePAM 5 MG TAB As Ordered ONE; -diazePAM 5 MG TAB PO ONE; -fentaNYL 100 MCG/2 ML INJECTION (J3010) As Ordered ONE
--- NOTE | 2019-12-08 10:08 | REP ---
RENAL ULTRASOUND WITH DUPLEX DOPPLER EVALUATION OF THE RENAL ARTERIES: Real-time ultrasound evaluation of kidneys is performed. The kidneys are normal in size and echotexture, right kidney measuring 13. 5 x 5.0 x 5.8 cm and left kidney 11.3 x 4.4 x 4.7 cm. There is no hydronephrosis bilaterally. There is a cyst in the lower pole of the left kidney 2.2 cm in diameter. Prostate measures 4.3 x 3.8 x 4.9 cm for a total volume of 42 mL. Urinary bladder is mildly distended with no mass or calculus identified. Real-time ultrasound evaluation and duplex Doppler interrogation of renal arteries is performed bilaterally. Abdominal aorta could not be visualized due to overlying bowel gas. Peak systolic velocity of the main right renal artery is 259 cm/s. Resistive indices are measured in the upper, mid, and lower thirds of the right kidney and range between 0.89 and 0.91. Acceleration times range between 0.033 and 0.041. Peak systolic velocity of the main left renal artery distally is 63 cm/s, proximal aspect of the main left renal artery is not visualized. Resistive indices of the left kidney range between 0.88 and 0.92. Acceleration times range between 0.039 and 0.042. IMPRESSION: Limited evaluation of the main renal arteries. Proximal and mid main left renal artery is not visualized due to overlying bowel gas. There is somewhat elevated peak systolic velocity in the main right renal artery. Recommend CT angiogram to further evaluate. Electronically Signed by Bakari Maddox MD 12/08/2019 12:55 P
== END ==
LOC: M RAD 06:28
PROVIDERS: ATTEND Physician Assistant
DX: I70.1 Atherosclerosis of renal artery (principal)

== ENCOUNTER → 2020-06-26 | Outpatient (CLI) | payer MEDICARE ==
[~2020-06-26] MED LIST changes: -AMLO10TA5 PO; +AMLO1TAB24 PO; +AMLO1TAB25 PO; -AMLO5TAB6 PO; +ASCO250T20 PO; +PANT40TA29 PO; -PANT40TA3 PO; -VITA1TAB23 PO
--- NOTE | 2020-06-26 08:47 | REP ---
INDICATION: ATHEROSCLEROSIS RENAL ARTERY COMPARISON: 12/08/2019 TECHNIQUE: Real time pratt scale ultrasound examination using curved array transducer followed by color Doppler evaluation of the renal vasculature. FINDINGS: The bilateral kidneys demonstrate increased central sinus fat and renovascular calcifications consistent with age-related renal disease. Right kidney measures 13.4 x 5.4 x 5.0 cm. Left kidney measures 11.6 x 4.0 x 4.0 cm and again includes 1.8 cm simple cyst. Bladder is under distended. Color Doppler evaluation is limited due to body habitus and overlying bowel gas. Abdominal aortic velocity cannot be obtained. Portions of the bilateral main renal arteries are incompletely evaluated and there is evidence for elevated velocity through the right mid main renal artery without visible stenosis. RIGHT KIDNEY Renal arterial velocity: Up to 227 centimeters/second Renal-aortic ratio: -- Intrarenal resistive indices: 0.75-0.77 Intrarenal acceleration times: 0.036-0.044 LEFT KIDNEY Renal arterial velocity: Up to 175 centimeters/second Renal-aortic ratio: -- Intrarenal resistive indices: 0.70-0.81 Intrarenal acceleration times: 0.036-0.044 IMPRESSION: 1. Kidneys demonstrate chronic age-related renal disease and stable left renal cyst. 2. Doppler interrogation is limited and essentially nondiagnostic/incomplete. Consider CTA or MRA of the renal arteries for further investigation if necessary. <Electronically signed by John Luna > 06/26/20 [id number]
== END ==
LOC: M RAD 07:27
PROVIDERS: ATTEND Physician Assistant
DX: I70.1 Atherosclerosis of renal artery (principal); N28.1 Cyst of kidney, acquired

== ENCOUNTER → 2020-10-09 | Outpatient (CLI) | payer MEDICARE ==
--- NOTE | 2020-10-09 13:52 | REPPI ---
INDICATION: CHF. COMPARISON: PA and lateral chest dated 06/23/2020. TECHNIQUE: Upright PA and lateral chest. FINDINGS: The lung kovacs are clear but again appear hyperinflated. Cardiac size is normal. There are sternotomy wires, unchanged. There is a dual chamber pacemaker, unchanged. There are surgical clips in the right axilla, unchanged. There are no acute infiltrates or effusions. There are no masses or nodules. IMPRESSION: Essentially negative PA and lateral chest except for hyperinflation. <Electronically signed by Bakari Elizabeth > 10/09/20 [id number]
== END ==
LOC: M PLAIMG 13:18
PROVIDERS: ATTEND Internal Medicine Cardiovascular Disease
DX: I50.9 Heart failure, unspecified (principal)

== ENCOUNTER → 2020-12-26 | Outpatient (CLI) | payer MEDICARE ==
[~2020-12-26] MED LIST changes: +FERR324T21 PO; -FERR325T16 PO
--- NOTE | 2020-12-26 09:55 | REP ---
INDICATION: RENAL ARTERY STENOSIS. COMPARISON: 06/26/2020. TECHNIQUE: Real-time sonographic evaluation of the kidneys is performed. Duplex Doppler evaluation of bilateral renal arteries performed. The study is limited due to patient body habitus. FINDINGS: Renal cortical echogenicity pattern is normal bilaterally and contours are smooth. There is no hydronephrosis bilaterally. There is a simple cyst in the lower pole of the left kidney 1.9 cm in diameter. Incidental note is made of gallstones in the gallbladder. The right kidney measures 14.3 x 5.8 x 6.6 cm. Left renal dimensions are 11.1 x 4.1 x 4.9 cm. The urinary bladder is unremarkable. The peak systolic velocity of the abdominal aorta at the a level of the renal arteries is 51.6 centimeters/second. The peak systolic velocity of the main right renal artery is 164.0 centimeter/second, renal to aortic ratio 3.2. Resistive indices right kidney range between 0.81 and 0.84. Acceleration times range between 0.04 and 0.06. Peak systolic velocity of the main left renal artery is 137.0 centimeter/second, renal to aortic ratio 2.7. Resistive indices left kidney range between 0.76 and 0.87. Acceleration times range between 0.03 and 0.04. The somewhat elevated ratios are likely secondary to somewhat low peak systolic velocity in the abdominal aorta. IMPRESSION: Limited exam due to patient body habitus. No compelling duplex Doppler sonographic evidence of significant renal artery stenosis bilaterally. <Electronically signed by Bakari Maddox > 12/26/20 0951
== END ==
LOC: M RAD 08:33
PROVIDERS: ATTEND Surgery
DX: I70.1 Atherosclerosis of renal artery (principal)

== ENCOUNTER → 2021-03-07 | Outpatient (REF) | payer MEDICARE | LOC: M LAB REF 17:16 | PROVIDERS: ATTEND Internal Medicine Nephrology | DX: N18.31 Chronic kidney disease, stage 3a (principal) ==

== ENCOUNTER → 2021-07-10 | Outpatient (REF) | payer MEDICARE ==
[~2021-07-10] MED LIST changes: -KLOR10TA76 PO; -KLOR20TA42 PO; +POTA-136 PO; +POTA-141 PO
== END ==
LOC: M LAB REF 17:13
PROVIDERS: ATTEND Nurse Practitioner Family
DX: N18.31 Chronic kidney disease, stage 3a (principal)